=== PATIENT | male | born 1950 | race Caucasian/White ===

== ENCOUNTER 2021-04-07 07:40 | Emergency (ER) | payer OTHER, SELFPAY ==
[2021-04-07 07:45] VITALS: BP 136/80; PULSE 96; RESP 18; TEMP 36.8; O2SAT 96
[2021-04-07 08:01] LABS: Bilirubin Negative (Negative); Blood Trace-intact (Negative); Clarity Clear (Clear); Glucose Negative (Negative); Ketones Negative (Negative); Leukocyte Esterase Negative (Negative); Nitrite Negative (Negative); Specific Gravity 1.025 (1.005-1.025); Urobilinogen 0.2 EU/dL (Up TO 0.2); pH 5.5 (5-8)
[2021-04-07 08:14] LABS: Bacteria Rare HPF (Negative); Crystals Negative HPF (Negative); Epithelial Cells Rare HPF (Negative); Mucus Trace (Negative); RBC 0-2 HPF (0-2)
[2021-04-07 08:15] LABS: C & S Indicated? No
--- NOTE | 2021-04-07 08:30 | DI.CT_ITS ---
Exam(s) CT RENAL COLIC WO EXAM: CT RENAL COLIC WO CLINICAL HISTORY: left flank pain 3 days. TECHNIQUE: Imaging Protocol: Axial computed tomography images with coronal and sagittal reformatted images were created and reviewed. COMPARISON: No exams were available for comparison FINDINGS: The examination is limited due to patient motion artifact. ABDOMEN: Lung Bases: Normal where visualized. Liver: Normal density. No measurable mass. Gallbladder and biliary tract: No radiodense calculus or biliary ductal dilation. Pancreas: Normal density, no abnormal calcifications or inflammatory process. Spleen: Normal. Kidneys: Normal size, contour and axis.There is a 5 mm stone in the proximal left ureter causing mild hydronephrosis. There is a 0.9 cm hypodense exophytic lesion in the midpole of the right kidney lat erally. It does not contain fat. Density is -3 Hounsfield units. No follow-up is recommended. Adrenal glands: No mass is seen. Lymph nodes: Within normal limits. Abdominal Aorta: Abdominal portion non-dilated. Moderate atherosclerosis. PELVIS: Bladder:Symmetric distention, no gross wall thickening. Bowel: No obstruction or bowel wall thickening. No evidence of appendicitis. There is a small duoden al diverticulum adjacent to the head of the pancreas. There is diverticulosis in the proximal sigmoi d colon and descending colon, but no evidence of acute diverticulitis. Peritoneal cavity: No ascites, collection or mesenteric inflammatory response. No free air. Reproductive organs: There is an enlarged prostate gland. Bones: Degenerative changes are seen in the spine. Soft Tissues: Within normal limits. IMPRESSION: 5 mm proximal left ureteral stone causing mild hydronephrosis. Results of this exam have been verbally communicated with provider. RADIATION DOSE DELIVERED: 705.57mGy.cm Total DLP DATA REPOSITORY: All CT scans at this facility are submitted to the National Radiology Data Registry (NRDR) Dose Index Registry (DIR) with the [employer] (ACR). RADIATION OPTIMIZATION: All CT scans at this facility use at least one of these dose optimization te chniques: automated exposure control; mA and/or kV adjustment per patient size (includes targeted exa ms where dose is matched to clinical indication); or iterative reconstruction.
--- NOTE | 2021-04-07 08:32 | W.ED.GENAD ---
Discharge Plan Disposition Patient Disposition: HOME Condition: Stable Discharge Details Clinical Impression: Ureterolithiasis Primary Care Provider: [facility] ED Provider: Amol Rodriges Home Meds and New Rx's Prescriptions: New tamsulosin [Flomax] 0.4 mg capsule 0.4 mg PO DAILY Qty: 14 RF: 0 No Action acetaminophen 500 mg Tablet 500 mg PO Q4H RF: 0 budesonide-formoterol [Symbicort] 80-4.5 mcg/actuation Hfa Aerosol Inhaler 2 puff INHALATION BID RF: 0 ipratropium-albuterol 20-100 mcg/actuation Mist 1 puff INHALATION TID RF: 0 Discharge Instructions Instructions: Renal Colic (ED), How to Strain Your Urine (ED) Additional Instructions: Please take ibuprofen over the counter. Take 600mg by mouth every 6 hours as needed for pain. Please take acetaminophen (tylenol) - 650mg every 6 hours by mouth as needed for pain. Please take Flomax as prescribed Please follow-up with [facility] urology, Dr. Sorensen. You will be contacted for outpatient appointment. Return to the ER for any worsening or new concerning symptoms. Referrals: Albert Sorensen MD [ [facility] STAFF PHYSICIAN] - Discharge Data Discharge Date/Time-TO BE ENTERED AT DEPARTURE: 04/07/21 10:45 Medical Decision Making 70yo m with left flank pain. Exam benign. Labs reviewed. CT renal interpreted by radiology: IMPRESSION: 5 mm proximal left ureteral stone causing mild hydronephrosis. Results of this exam have been verbally communicated with provider. I spoke with Dr. Sorensen and discussed presentation and results. He recommends start flomax and f/u with him in clinic. All results reviewed with patient. Discharge plan discussed with patient. HPI General Mode of arrival: ambulatory. Date/Time Provider Initiated Documentation: 04/07/21 08:17. Limitations to Documentation: no limitations. Information obtained by: patient. HPI Narrative: 30-year-old male presents with chief complaint of left flank pain. Patient notes 3 to 4 days of left flank pain now radiating to his groin. Pain is moderate to severe with no modifiers. Pain is intermittently sharp. No associated hematuria or dysuria. No associated fever. Related Data Home Medications Medication Instructions Recorded Confirmed tamsulosin [Flomax] 0.4 mg PO DAILY #14 cap 04/07/21 04/09/21 acetaminophen 500 mg PO Q4H 04/09/21 04/09/21 budesonide-formoterol [Symbicort] 2 puff INHALATION BID 04/09/21 04/09/21 ipratropium-albuterol 1 puff INHALATION TID 04/09/21 04/09/21 Previous Rx's Medication Instructions Recorded tamsulosin [Flomax] 0.4 mg PO DAILY #14 cap 04/07/21 Allergies Allergy/AdvReac Type Severity Reaction Status Date / Time No Known Allergies Allergy Unverified 04/09/21 08:13 General Stated Complaint: FlankPain LUCY: 3 Review of Systems All systems reviewed & are unremarkable except as noted in HPI and below Constitutional Constitutional: Denies fever(s) Genitourinary Genitourinary: Denies hematuria, Denies genital pain, Denies penile discharge, Denies scrotal swelling and Denies testicular pain PFSH Medical History (Updated 04/09/21 @ 11:05 by James Keating) AAA (abdominal aortic aneurysm) without rupture COPD (chronic obstructive pulmonary disease) Knee pain Thrombus [facility]: Possible thrombus Surgical History (Updated 04/08/21 @ 14:51 by Albert Sorensen MD) H/O cataract extraction Social History Smoking/Tobacco Use Status: Current every day Tobacco Type: cigarettes Smoking risk assessment performed?: Yes Alcohol Intake: never Drug use: Never Substance use type: does not use Do you feel safe at home: Yes Do you feel safe in your relationship?: Yes Exam Const General: cooperative and no acute distress HENMT Mouth: moist mucous membranes Eyes Conjunctivae: normal conjunctivae Sclera: normal sclerae Neck Neck: trachea midline and supple Resp Auscultation: clear to auscultation bilaterally, no rales, no rhonchi and no wheezes Cardio Rate: regular rate and not tachycardic Rhythm: regular rhythm GI Palpation: soft, not firm, no guarding, no masses, not rigid and nontender Back/Spine/Pelvis Back: CVA tenderness (left) Skin General skin exam: no rashes or lesions noted Neuro General: patient alert, patient awake, patient oriented x3 and tone normal Extrem General: no edema Psych Appearance: grossly normal Mental Status: mental status grossly normal Course Vital Signs Vital signs: Vital Signs Temperature 36.8 C 04/07/21 07:45 Pulse 96 H 04/07/21 07:45 Respiratory Rate 18 04/07/21 07:45 Blood Pressure 136/80 04/07/21 07:45 Pulse Oximetry 96 04/07/21 07:45 Temperature 36.8 C 04/07/21 07:45 Temperature Source Temporal Artery Scan 04/07/21 07:45 Pulse 96 H 04/07/21 07:45 Respiratory Rate 18 04/07/21 07:45 Respiratory Effort Non-Labored 04/07/21 07:50 Blood Pressure 136/80 04/07/21 07:45 Blood Pressure Position Sitting 04/07/21 07:45 Pulse Oximetry 96 04/07/21 07:45 Oxygen Delivery Method Room Air 04/07/21 07:45 Oxygen Flow Rate 0 04/07/21 07:45 Pain Level 8 04/07/21 07:45 Lab/Test Results Lab/Test Results: Laboratory Tests Range/Units 04/07/21 07:55 Urine Color (Yellow) Yellow Urine Clarity (Clear) Clear Urine pH (5-8) 5.5 Ur Specific [place] (1.005-1.025) 1.025 Urine Protein (Negative) mg/dL 100 H Urine Ketones (Negative) mg/dL Negative Urine Blood (Negative) Trace-intact H Urine Nitrite (Negative) Negative Urine Bilirubin (Negative) Negative Urine Urobilinogen (Up TO 0.2) EU/dL 0.2 Ur Leukocyte Esterase (Negative) Negative Urine RBC (0-2) HPF 0-2 Urine WBC (0-5) HPF 3-5 Ur Epithelial Cells (Negative) HPF Rare Urine Crystals (Negative) HPF Negative Urine Bacteria (Negative) HPF Rare Urine Casts (Negative) LPF Negative Urine Mucus (Negative) Trace Ur Culture Indicated? No Urine Glucose (Negative) mg/dL Negative
[2021-04-07] MEDS: Ketorolac 15 MG/ML VIAL IVP (08:40)
[2021-04-07] MEDS: Lidocaine 5% Patch 1 PATCH TP (08:40)
[2021-04-07 08:45] LABS: Abs Immature Grans 0.09 10^3/uL (0.0-0.06); Absolute Basophil Count 0.03 10^3/uL (0.0-0.2); Absolute Monocyte Count 1.11 10^3/uL (0.1-0.8); Basophils % 0.2; Eosinophils % 0.1; HCT 53.6 % (40.0-50.0); HGB 17.8 g/dL (13.5-17.5); Immature Grans % 0.6; Lymphocytes % 10.6; MCH 28.9 pg (27.0-33.0); MCHC 33.2 % (32.0-36.0); MPV 9.7 fL (8.0-11.0); Monocytes % 7.5; Nucleated RBC 0 %; Platelet Count 239 10^3/uL (130-400); RBC 6.16 10^6/uL (4.36-5.78); RDW 13.7 % (11.8-14.1); WBC 14.84 10^3/uL (4.4-10.8)
[2021-04-07 08:54] LABS: ALT 24 U/L (16-63); AST 14 U/L (15-37); Albumin 3.9 g/dL (3.4-5.0); Alkaline Phosphatase 96 U/L (46-116); BUN 36 mg/dL (7-18); Bilirubin, Total 0.8 mg/dL (0.2-1.0); CREATININE 1.9 mg/dL (0.70-1.30); Calcium 9.1 mg/dL (8.5-10.1); Chloride 99 mmol/L (98-107); Estimated GFR 35.12 (mL/min/1.73m2); Glucose 115 mg/dL (74-106); Potassium 3.9 mmol/L (3.5-5.1); Sodium 140 mmol/L (136-145); Total Protein 8.5 g/dL (6.4-8.2)
--- OUTSIDE RECORDS SUMMARY | 2021-04-07 09:01 | XMS_ITS | Encounter Summary ---
:1950 Author Organization [facility] Address [address] [place] [address] Care Team Providers Name Role Phone JHONNY VIVAS Primary Care Provider Unavailable Insurance Providers: All historical and current Section Date Range: From patient's date of to the date document was created.This section includes the names of all active insurance providers for the patient. Insurance Type of Plan Start of End of Group Member Insurance Policy P atient's Provider Coverage Name Policy Policy Number ID Provider's Carcamo's Relationship Coverage Coverage Telephone Name to Policy Number Carcamo MEDICARE MEDICARE PART Nov 01, PART A [id number] DIA LAWS PATIENT (WNR) (M) A 2013 37A 1 [place] MEDICARE MEDICARE PART Nov 01, PART B [id number] DIA LAWS PATIENT (WNR) (M) B 2013 37A 1 [place] Selected Encounter This section includes the information on record at [place] for the Encounter. Date/Time Encounter Type Encounter Reason Provider Source Description Dec 23, 2020 3D RENDER W/INTRP CARDIAC ECHO ICD-10-CM JUANJO VARELA 08:30 AM POSTPROCES I71.2 Thoracic aortic aneurysm, without rupture with Provider Comments: Thoracic aortic aneurysm, without rupture IHE Encounter Template Text not used by [facility] Assessments - Encounter Diagnoses This section includes the primary and secondary diagnoses documented forthe Encounter. Date/Time Primary/Secondary Diagnosis Name Provider Source Diagnosis Dec 23, 2020 PRIMARY Thoracic aortic [facility] 09:14 AM aneurysm, [facility] without rupture Surgical Procedures: All associated to the encounter This section includes all Surgical Procedures and Surgical Procedure Notes associated to the Encounter.Surgical Procedures This section includes all Surgical Procedures associated to the Encounter.Surgical Procedure Date/Time Procedure Procedure Type Procedure Provider Source Qualifiers Dec 23, 2020 3D RENDER 3D RENDER JUANJO VARELA 08:30 AM W/INTRP W/INTRP L [facility] POSTPROCES POSTPROCES Surgical Notes There are no notes associated with this procedure. Surgical Procedure Date/Time Procedure Procedure Type Procedure Provider Source Qualifiers Dec 23, 2020 TTE W/DOPPLER TTE W/DOPPLER JUANJO VARELA 08:30 AM COMPLETE COMPLETE L [facility] Surgical Notes There are no notes associated with this procedure. Social History: Smoking Status (Most current) and Tobacco Use (All prior to encounter date) This section includes the most current, and the historical, smoking and tobacco-related health factors from the [place] facility where the Encounter took place.Current Smoking Status This section includes the most current smoking, or tobacco-related health factor, from the [place] facility where the Encounter took place. 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 The data comes from the [place] facility where the Encounter took place. 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 Date/Time Encounter Note(s) Provider Source Dec 23, 2020 11:10 AM CARDIOLOGY DIAGNOSTIC STUDY REPORT: DENEEN BHATT [facility] LOCAL TITLE: Cardiology Echo Report (CP) STANDARD TITLE: CARDIOLOGY DIAGNOSTIC STUDY REPO RT DATE OF NOTE: DEC 23, 2020@11:10:45 ENTRY DATE: DEC 23, 2020@11:10:45 AUTHOR: CLINICAL,DEVICE PRO EXP COSIGNER: URGENCY: STATUS: COMPLETED PROCEDURE SUMMARY CODE: Machine Resulted DATE/TIME PERFORMED: DEC 23, 2020@08:27:5 DOCUMENT IN VISTA IMAGING SEE FULL REPORT IN VISTA IMAGING SIGNATURE NOT REQUIRED SEE SIGNATURE IN VISTA IMAGING ([employer]era (TTE)) AUTO-INSTRUMENT DIAGNOSIS Procedure: Adult Administrative Closure: 12/23/2020 by: Clinical,Device Proxy Se garcia
--- OUTSIDE RECORDS SUMMARY | 2021-04-07 09:02 | XMS_ITS ---
:1950 Author Organization [facility] Address [address] [place] [address] Care Team Providers Name Role Phone JHONNY [...] MEDICARE MEDICARE PART Nov 01, PART A [id number] [id number] DIA LAWS PATIENT (WNR) (M) A 2013 37A 1 [place] MEDICARE MEDICARE PART Nov 01, PART B [id number] [phone] DIA LAWS PATIENT (WNR) (M) B 2013 37A 1 [place] Selected Encounter This section includes the information on record at [place] for the Encounter. Date/Time Encounter Type Encounter Reason Provider Source Description May 13, 2020 Outpatient TELEPHONE/SURGERY ICD-10-CM Z71.89 JENNIFER GR 09:00 AM Encounter Other specified IS L counseling with Provider Comments: Counseling,Oth Specified IHE Encounter Template Text not used by [facility] Assessments - Encounter Diagnoses This section includes the primary and secondary diagnoses documented forthe Encounter. Date/Time Primary/Secondary Diagnosis Name Provider Source Diagnosis May 13, 2020 PRIMARY Other specified BILL ANDRADE DENEEN QUINONES R 09:00 AM counseling [facility] May 13, 2020 SECONDARY Other general BILL ANDRADE [place] 09:00 AM symptoms and [facility] signs Plan of Treatment: Future Appointments (+ 6 months) and Future Tests (+/- 45 days) The Plan of Treatment section includes future care activities for the patient from all [place] treatment facilities. This section includes future appointments and future orders which are active, pending or scheduled.Future Appointments This section includes appointments that were scheduled to occur 6 months from the date of the Encounter, up to a maximum of 20 appointments. The data comes from all [facility]. Appointment Date/Time Appointment Type Appointment Facili ty Name Sep 24, 2020 08:30 AM AMBULATORY - MEDICINE [facility] Active, Pending, and Scheduled Orders This section includes a listing of several types of active, pending, and scheduled orders, including clinic medications orders, diagnostic test orders, procedure orders and consult orders; where the start date of the order is 45 days before the date of the Encounter or 45 days after the date of the Encounter. The data comes from all [place] treatment facilities. Test Date/Time Test Type Test Details Facility Name May 01, 2020 12:00 Laboratory - P4 GLU,BUN,CREAT,LYTES,CA WHI TE [place] T AM Chemistry Order LT GREEN(LI HEP) PLASMA [facility] May 01, 2020 12:00 Laboratory - GLYCOHEMOGLOBIN (A1C ONLY) [facility] Order BLOOD(LAV-EDTA) [facility] May 01, 2020 12:00 Laboratory - FOLATE BLOOD(GOLD) [place] [place] AM Chemistry Order [facility] May 01, 2020 12:00 Laboratory - [facility] B[facility] SER[facility] May 01, 2020 12:00 [facility] - [facility] Chemistry Order BLOOD(GOLD) SERUM [facility] May 13, 2020 09:09 Procedure Order VASCULAR LAB PROCEDURE [facility] VASCULAR LAB FUTURE CARE [facility] Proc [place] Social History: Smoking Status (Most current) and Tobacco Use (All prior to encounter date) This section includes the most current, and the historical, smoking and tobacco-related health factors from the [place] facility where the Encounter took place.Current Smoking Status This section includes the most current smoking, or tobacco-related health factor, from the [place] facility where the Encounter took place. 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 The data comes from the [place] facility where the Encounter took place. Date/Time Smoking Status/Tobacco Use Comment Facil ity Jan 25, 2020 12:41 PM VA-TOBACCO USE 30 YEARS OR MORE DENEEN BHATT [place] [facility] Jan 25, 2020 12:41 PM VA-TOBACCO USE ADVICE ALHAJI BHATT [place] [facility] Jan 25, 2020 12:41 PM VA-TOBACCO USE ENVIRONMENTAL SYSTEMS COORDINATOR NO WHITE [place] [facility] Jan 25, 2020 12:41 PM VA-TOBACCO USE MED NO ALHAJI [place] [facility] Jan 25, 2020 12:41 PM VA-TOBACCO USER EVERY DAY DENEEN BHATT [place] [facility] Sep 08, 2016 08:09 AM CURRENT SMOKER DENEEN De Luna [facility] Encounter Notes: All associated encounter notes This section contains the clinical notes associated to the Encounter. Date/Time Encounter Note(s) Provider Source May 13, 2020 08:31 AM VASCULAR SURGERY TELEPHONE ENCOUNTER N OTE: DOLORES GR DENEEN BHATT T LOCAL TITLE: Vasc Surgery/Telephone Note [facility] STANDARD TITLE: VASCULAR SURGERY TELEPHONE ENCOU NTER NOTE DATE OF NOTE: MAY 13, 2020@08:31 ENTRY DATE: MAY 13, 2020@08:31:29 AUTHOR: DOLORES GR EXP COSIGNER: CHYNA MEDRANO URGENCY: STATUS: COMPLETED Vasc Surgery/Telephone Note Has ADDENDA * VASCULAR SURGERY TELEPHONE NOTE 69 y/o male w/PMHx including severe COPD, HLD, t obacco use who presented for routine Vascular Surgery F/U with updated studie s. Contacted patient to F/U konrad dies and discuss further management. He denies acute abdominal/back pain/LE pain. Sore feet sometimes , continues working and is on them during the day. Remains on ASA and statin. Denies additional blood thinners. Restarted smoking, 1/2-1ppd. Rare ETOH use. Denies illicit acute. STUDIES: Procedure: Arterial Duplex Exam Registered Alarm Operator: BRENDA MAY Ordering Provider: BRENDA KAPLAN Indication for exam: annual surviellance Duplex Findings: Location: Diameter(cm) Diameter( cm) AP Transver se Proximal Aorta: 2.2 2.2 Mid Aorta: 2.7 2.7 Distal Aorta: 2.2 2.2 Right SONIA: 1.2 1.2 Left SONIA: 2.1 2.0 Summary: Ectatic aorta with maximum diameter of 2.7 cm. ( compared to 3.4 cm on the previous study on 05-11-19). Ectatic left common iliac artery, no previous measurement from our vascular lab for comparison . A/P: 69 y/o male w/ectatic AAA an d LEFT SONIA. Recommend ongoing surveillance w/updated aortic duplex and RTC 1 year. Continue medical t herapy w/ASA and statin. Recommend smoking cessation and patient to present to the closest ED for acute clinical change. /christian/ DOLORES GR Physician Hired Hand Signed: 05/13/2020 09:07 /christian/ CHYNA Smith MD Cosigned: 05/13/2020 10:24 05/13/2020 ADDENDUM STATUS: COMPLETED Correction: 69 y/o male w/ectatic abdominal aorta and LEFT C IA. /[place] GR Physician Hired Hand Signed: 05/13/2020 09:10 /christian/ CHYNA Smith MD Cosigned: 05/13/2020 10:23
--- OUTSIDE RECORDS SUMMARY | 2021-04-07 09:02 | XMS_ITS | Encounter Summary ---
:1950 Author Organization [facility] Address [address] [place] [address] Care Team Providers Name Role Phone JHONNY [...] MEDICARE MEDICARE PART Nov 01, PART A [id number] [phone] DIA LAWS PATIENT (WNR) (M) A 2013 37A 1 [place] MEDICARE MEDICARE PART Nov 01, PART B [id number] DIA LAWS PATIENT (WNR) (M) B 2013 37A 1 [place] Selected Encounter This section includes the information on record at [place] for the Encounter. Date/Time Encounter Type Encounter Description Reason Provider Source Jul 03, 2020 11:31 Outpatient Encounter CARDIAC ECHO AM IHE Encounter Template Text not used by [place] Plan of Treatment: Future Appointments (+ 6 months) and Future Tests (+/- 45 days) The Plan of Treatment section includes future care activities for the patient from all [place] treatment facilities. This section includes future appointments and future orders which are active, pending or scheduled.Future Appointments This section includes appointments that were scheduled to occur 6 months from the date of the Encounter, up to a maximum of 20 appointments. The [facility] [place] [facility] Appointment Date/Time Appointment Type Appointment Facili ty Name Sep 24, 2020 08:30 AM AMBULATORY - MEDICINE [facility] Dec 23, 2020 08:30 AM AMBULATORY - MEDICINE [facility] Social History: Smoking Status (Most current) and Tobacco Use (All prior to encounter date) This section includes the most current, and the historical, smoking and tobacco-related health factors from the [place] facility where the Encounter took place.Current Smoking Status This section includes the most current smoking, or tobacco-related health factor, from the [place] facility where the Encounter took place. 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 The data comes from the [place] facility where the Encounter took place. Date/Time Smoking Status/Tobacco Use Comment [facility] Jan 25, 2020 12:41 PM VA-TOBACCO USE 30 YEARS OR MORE DENEEN BHATT [facility] Jan 25, 2020 12:41 PM VA-TOBACCO USE ADVICE ALHAJI BHATT [facility] Jan 25, 2020 12:41 PM VA-TOBACCO USE GARMENT STEAMER NO DENEEN BHATT [facility] Jan 25, 2020 12:41 PM VA-TOBACCO USE MED NO ALHAJI BHATT [facility] Jan 25, 2020 12:41 PM VA-TOBACCO USER EVERY DAY DENEEN BHATT [facility] Sep 08, 2016 08:09 AM CURRENT SMOKER DENEEN De Luna [facility] Encounter Notes: All associated encounter notes This section contains the clinical notes associated to the Encounter. Date/Time Encounter Note(s) Provider Source Jul 03, 2020 11:31 AM INFECTIOUS DISEASE NOTE: SALVATORE MCCLOUD [facility] LOCAL TITLE: COVID-19 CANCELLED APPOINTMENT FOL LOW-UP STANDARD TITLE: INFECTIOUS DISEASE NOTE DATE OF NOTE: JUL 03, 2020@11:31 ENTRY DATE: JUL 03, 2020@11:31:10 AUTHOR: SALVATORE MCCLOUD EXP COSIGNER: URGENCY: STATUS: COMPLETED Review of cancelled appointments during COVID-19 pandemic: CVP - Past Clinic Visits 05/24/2020 09:30 [facility] CARDIO ECHO B1RC CANCELLED BY PATIENT 05/24/2020 08:30 [facility] EYE VICTORIA B3RF CANCELLED BY PATIENT 05/14/2020 09:48 [facility] EYE TELEPHONE UNSCHEDULED 05/13/2020 09:00 [facility] VASCULAR TELE-X 05/09/2020 09:15 [facility] VASCULAR TELE-X CANCELLED BY CLINIC 05/09/2020 08:00 [facility] VASCULAR LAB 60 M3RH 04/01/2020 08:30 [facility] CARDIO ECHO B1RC CANCELLED BY CLINIC 03/29/2020 15:27 [facility] CARDIO RN PHONE UNSCHEDULED 02/06/2020 08:46 [facility] PACT ACAD 1 TELE 02/06/2020 08:45 [facility] PACT ACAD 1 M1RB CANCELLED BY CLINIC Date(s) of appointment(s) being reviewed: 11/2019 08:30 Clinic Location/Specialty: [facility] CARDIO ECHO B1R C The 's chart has been reviewed and the ac tion below is indicated for this cancelled appointment: Follow-up: Scheduling action needed /christian/ SALVATORE MCCLOUD Signed: 07/03/2020 11:31
--- OUTSIDE RECORDS SUMMARY | 2021-04-07 09:02 | XMS_ITS | Encounter Summary ---
:1950 Author Organization [facility] Address [address] [place] [address] Care Team Providers Name Role Phone JHONNY [...] MEDICARE MEDICARE PART Nov 01, PART A [id number] [phone] DIA LAWS PATIENT (WNR) (M) A 2013 37A 1 ORGE MEDICARE MEDICARE PART Nov 01, PART B [id number] DIA LAWS PATIENT (WNR) (M) B 2013 37A 1 ORGE Selected Encounter This section includes the information on record at [place] for the Encounter. Date/Time Encounter Type Encounter Reason Provider Source Description May 14, 2020 Outpatient TELEPHONE/OPTOMET ICD-10-CM Z71.89 SHARI VICTORIA 09:48 AM Encounter RY Other specified counseling with Provider Comments: Counseling,Oth Specified IHE Encounter Template Text not used by [facility] Assessments - Encounter Diagnoses This section includes the primary and secondary diagnoses documented forthe Encounter. Date/Time Primary/Secondary Diagnosis Name Provider Source Diagnosis May 14, 2020 PRIMARY Other specified EKATERINA YOUNGER ER 09:48 AM counseling [facility] Plan of Treatment: Future Appointments (+ 6 months) and Future Tests (+/- 45 days) The Plan of Treatment section includes future care activities for the patient from all [place] treatment facilities. This section includes future appointments and future orders which are active, pending or scheduled.Future Appointments This section includes appointments that were scheduled to occur 6 months from the date of the Encounter, up to a maximum of 20 appointments. The data comes from all [facility]. Appointment Date/Time Appointment Type Appointment Facili ty Name Sep 24, 2020 08:30 AM AMBULATORY - MEDICINE [facility] Active, Pending, and Scheduled Orders This section includes a listing of several types of active, pending, and scheduled orders, including clinic medications orders, diagnostic test orders, procedure orders and consult orders; where the start date of the order is 45 days before the date of the Encounter or 45 days after the date of the Encounter. The data comes from all [place] treatment facilities. Test Date/Time Test Type Test Details Facility Name May 01, 2020 12:00 Laboratory - P4 GLU,BUN,CREAT,LYTES,CA I TE [facility] T AM Chemistry Order LT GREEN(LI HEP) [facility] May 01, 2020 12:00 Laboratory - [facility]COHE[facility] (A1C ONLY[facility] AM Chemistry Order BLOOD(LAV-EDTA) [facility] May 01, 2020 12:00 Laboratory - FOLATE BLOOD(GOLD) [facility] Chemistry Order SP [facility] May 01, 2020 12:00 Laboratory - VITAMIN B-12 BLOOD(GOLD) [facility] AM Chemistry Order SERUM [facility] May 01, 2020 12:00 Laboratory - THYROID TESTING [facility] Chemistry Order BLOOD(GOLD) [facility] May 13, 2020 09:09 Procedure Order VASCULAR LAB PROCEDURE [facility] VASCULAR LAB FUTURE CARE [facility] Proc Corporate Administrative Assistant's Choice Social History: Smoking Status (Most current) and Tobacco Use (All prior to encounter date) This section includes the most current, and the historical, smoking and tobacco-related health factors from the [place] facility where the Encounter took place.Current Smoking Status This section includes the most current smoking, or tobacco-related health factor, from the [place] facility where the Encounter took place. 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 The data comes from the [place] facility where the Encounter took place. 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 Date/Time Encounter Note(s) Provider Source May 14, 2020 09:48 AM EYE TELEPHONE ENCOUNTER NOTE: ANTHONY VICTORIA [facility] LOCAL TITLE: Eye Clinic Telephone Note [facility] STANDARD TITLE: EYE TELEPHONE ENCOUNTER NOTE DATE OF NOTE: MAY 14, 2020@09:48 ENTRY DATE: MAY 14, 2020@09:48:56 AUTHOR: EKATERINA YOUNGER COSIGNER: DEISY VICTORIA URGENCY: STATUS: COMPLETED EYE TELEPHONE NOTE PURPOSE FOR THE CALL COVID-19 RELATED CONTACT EFFORT Spoke to patient's . REVIEW OF RECORD Record reviewed , Patient Appointment: EYE APPT FUTURE TODAY'S & FUTURE EYE CLINIC APPOINTMENTS DATE/TIME CLINIC ( LOCATION ) May@08:30 [facility] EYE ESME B3RF (BI RCHES BLG FL 3 REC F) PERTINENT/OCULAR HISTORY 1. Cataracts OU 2. Refractive error 3. Mild retinal angiopathy OS 4. Epiretinal membrane OD CALLED PATIENT TO RESCHEDULE 2' COVID-19 PANDEMI C. NO ANSWER LEFT DISCRETE MESSAGE @ 10:00am ON 05/14 WITH DIRECT CONTACT IN FORMATION. WILL CALL AGAIN. CALLED PATIENT TO RESCHEDULE 2' COVID-19 PANDEMI C. NO ANSWER LEFT DISCRETE MESSAGE @ 10:20am ON 05/15 WITH DIRECT CONTACT IN FORMATION. WILL CALL AGAIN. On 05/16 at 9:04: COVID Screening: Negative Spoke to 's . Per his he denies any urgent eye problems. Will cancel eye exam on May 24 and reschedule. PATIENT EDUCATED TO CONTACT CLINIC WITH ANY URGE NT EYE/VISION ISSUES. APPOINTMENT CHANGE Appointment to be can celled and RTC order placed for 1 year Will inform administrative staff to reschedule. Rescheduled appointment due to: COVID Total time spent on telephone call was 5 minutes . /christian/ DEISY VICTORIA Chief, Optometry Signed: 05/16/2020 22:23 for EKATERINA YOUNGER, Optometry Student Optometry Student /christian/ DEISY VICTORIA Chief, Optometry Cosigned: 05/16/2020 22:23
[2021-04-07 09:19] LABS: Absolute Eosinophil Count 0.01 10^3/uL (0.0-0.7); Absolute Lymphocyte Count 1.57 10^3/uL (1.2-3.4); Absolute Neutrophil Count 12.02 10^3/uL (1.2-6.7)
[2021-04-07 09:20] LABS: Diff Comment Diff Reviewed; RBC Morphology Normal
[2021-04-07] MEDS: Tamsulosin 0.4 MG CAPCR PO (10:38)
[2021-04-07 14:13] LABS: Casts 5-10 Hyaline LPF (Negative)
[2021-04-08 16:02] LABS: COVID-19 RT-PCR UVMMC Result Negative (Negative)
--- NOTE | 2021-04-11 08:52 | NUR.NOTE ---
telephoned patient, verified identity and relayed negative covid results to him.
== END 2021-04-07 10:45 | disposition home or self-care (01) ==
PROVIDERS: Emergency Provider Student in an Organized Health Care Education/Training Program
DX: N20.1 Calculus of ureter (principal); Z20.822 Contact with and (suspected) exposure to COVID-19
CPT/HCPCS: 80053; 99284; U0003; 74176; 81003; 81015; 85025; 99283; J1885

== ENCOUNTER 2021-04-11 04:08 | Day surgery (SDC) | payer OTHER, SELFPAY | END 2021-04-11 04:09 | disposition home or self-care (01) | LOC: SUR 04-13 04:09 | PROVIDERS: Visit Provider Urology | DX: Z53.9 Procedure and treatment not carried out, unspecified reason (principal) ==

== ENCOUNTER 2021-11-13 12:25 | Emergency (ER) | payer OTHER, SELFPAY ==
[2021-11-13] VITALS (15 sets, daily range): BP systolic 118–173; BP diastolic 70–106; PULSE 75–137; RESP 15–23; TEMP 36.4; O2SAT 93–97
--- NOTE | 2021-11-13 12:30 | DI.CT_ITS ---
Exam(s) CT BRAIN NECK CTA EXAM: CT BRAIN NECK CTA CLINICAL HISTORY: stroke, right sided deficits. TECHNIQUE: Imaging Protocol: Axial CT angiography was performed with multi-slice acquisition and mu lti-planar and/or 3D reconstructions. CONTRAST MATERIAL: Intravenous: Omnipaque 350 Contrast volume:100 ml COMPARISON: CT CT RENAL COLIC WO from 04/07/2021 FINDINGS: CT Head W/O and W contrast: Ventricles and Extra axial spaces: Normal in size and morphology for the patient's age. Hemorrhage: None. Cerebral parenchyma: Mild to moderate low density in the white matter consistent with small vessel di sease. Mild atrophy. Midline shift: None. Brainstem/Cerebellum: Normal. Calvarium: Normal. Visualized Paranasal sinuses/Mastoids: Clear. Soft Tissues: Unremarkable. Enhancement: Normal. CTA Brain W: Internal Carotid Arteries: Petrous: Normal. Cavernous: Normal. Cerebral: Normal. Middle Cerebral Arteries: Right: No aneurysm, occlusion or significant stenosis. Left: No aneurysm, occlusion or significant stenosis. Anterior Cerebral Arteries: Right: No aneurysm, occlusion or significant stenosis. Left: No aneurysm, occlusion or significant stenosis. Posterior cerebral Arteries: Right: No aneurysm, occlusion or significant stenosis. Left: No aneurysm, occlusion or significant stenosis. Vertebral Arteries: Right: No aneurysm, occlusion or significant stenosis. Left: No aneurysm, occlusion or significant stenosis. Basilar Artery: No aneurysm, occlusion or significant stenosis. CTA Neck W: Common Carotid: Right: No aneurysm, occlusion or significant stenosis. Left: No aneurysm, occlusion or significant stenosis. External Carotid: Right: No aneurysm, occlusion or significant stenosis. Left: No aneurysm, occlusion or significant stenosis. Internal Carotid: Right: Heavy plaque at the common carotid bulb and proximal internal carotid artery. Mild stenosis o f left and 50 percent proximal internal carotid artery. Left: Calcific plaque at the proximal internal carotid artery creating approximately 50 percent sten osis. Vertebral Artery: Right: No aneurysm, occlusion or significant stenosis. Left: No aneurysm, occlusion or significant stenosis. Lung Apices: Emphysematous changes. No pneumothorax or infiltrate. Bones: Degenerative changes, unremarkable for age. Soft Tissues: Normal. IMPRESSION: 1. Normal CTA examination of the [place]. 2. No acute infarct visible. White matter changes small vessel disease. 3. Heavy calcific plaque at the common carotid bulbs and proximal internal carotid arteries, mild estrella nosis on the right and moderate stenosis on the left. 4. No evidence occlusion or dissection. RADIATION DOSE DELIVERED: 2,193.44mGy.cm Total DLP DATA REPOSITORY: All CT scans at this facility are submitted to the National Radiology Data Registry (NRDR) Dose Index Registry (DIR) with the [employer] (ACR). RADIATION OPTIMIZATION: All CT scans at this facility use at least one of these dose optimization te chniques: automated exposure control; mA and/or kV adjustment per patient size (includes targeted exa ms where dose is matched to clinical indication); or iterative reconstruction.
--- NOTE | 2021-11-13 12:45 | RT.EKG_ITS ---
APPROVED REPORT Exam: Resting ECG Reason for Exam: possible stroke Patient Location: E HR:82 bpm ECG Measurements Heart Rate 82 AXIS MD 172 P 70 QRSd 97 QRS 63 QT 400 T 69 QTc 468 Conclusion Sinus rhythm...normal P axis, V-rate 60- 99 Ventricular premature complex...V complex w/ short R-R interval Physician:minimal st elevation in V1, no depression, no stemi
[2021-11-13 12:52] LABS: BE (Venous) 4 mmol/L (-2-3); HCO3 (Venous) 29 mmol/L (23-28); O2 Sat (Venous) 91 %; TCO2 (Venous) 25 mmol/L (24-29); pCO2 (Venous) 44 mmHg (41-51); pH (Venous) 7.43 (7.31-7.41); pO2 (Venous) 56 mmHg
[2021-11-13 12:53] LABS: Absolute Basophil Count 0.07 10^3/uL (0.0-0.2); Absolute Eosinophil Count 0.12 10^3/uL (0.0-0.7); Absolute Lymphocyte Count 2.79 10^3/uL (1.2-3.4); Absolute Monocyte Count 0.73 10^3/uL (0.1-0.8); Basophils % 0.8; Eosinophils % 1.4; HCT 47.5 % (40.0-50.0); HGB 15.6 g/dL (13.5-17.5); Immature Grans % 1.1; Lymphocytes % 31.7; MCH 28.9 pg (27.0-33.0); MCHC 32.8 % (32.0-36.0); MCV 88.1 fL (80-95); MPV 9.2 fL (8.0-11.0); Monocytes % 8.3; Neutrophils % 56.7; Nucleated RBC 0 %; Platelet Count 213 10^3/uL (130-400); RBC 5.39 10^6/uL (4.36-5.78); RDW 14.4 % (11.8-14.1); RDW-SD 46.2 fL; WBC 8.81 10^3/uL (4.4-10.8)
[2021-11-13] MEDS: Normal Saline 500 ML IV (12:56)
[2021-11-13 13:00] LABS: Ammonia 15 umol/L (11-32)
[2021-11-13] MEDS: Omnipaque 350 MG/ML 100 ML BTL 85 ML IJ (13:00)
[2021-11-13 13:18] LABS: ALT 34 U/L (16-63); AST 25 U/L (15-37); Alkaline Phosphatase 83 U/L (46-116); Anion Gap 8.8 mmol/L (3-11); BUN 20 mg/dL (7-18); Bilirubin, Total 0.5 mg/dL (0.2-1.0); CO2 28.2 mmol/L (21.0-32.0); CREATININE 0.8 mg/dL (0.70-1.30); Calcium 8.8 mg/dL (8.5-10.1); Chloride 102 mmol/L (98-107); Glucose 103 mg/dL (74-106); Potassium 3.6 mmol/L (3.5-5.1); Sodium 139 mmol/L (136-145); Total Protein 7.8 g/dL (6.4-8.2); Troponin I < 50 ng/L (<or=60)
--- NOTE | 2021-11-13 13:42 | W.ED.GENAD ---
Discharge Plan Disposition Patient Disposition: [facility] Condition: Critical Discharge Details Clinical Impression: Acute ischemic stroke, Right sided weakness Primary Care Provider: [facility],[place] ED Provider: Yaron Mohan Home Meds and New Rx's Prescriptions: No Action acetaminophen 500 mg Tablet 500 mg PO Q4H PRNRF: 0 budesonide-formoterol [Symbicort] 80-4.5 mcg/actuation Hfa Aerosol Inhaler 2 puff INHALATION BID RF: 0 ipratropium-albuterol 20-100 mcg/actuation Mist 1 puff INHALATION TID RF: 0 Discharge Data Discharge Date/Time-TO BE ENTERED AT DEPARTURE: 11/13/21 15:35 Medical Decision Making 12:30 71-year-old male with a past medical history of AAA, COPD, tobacco use, who presents today for strokelike symptoms. 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 He did not fall and hit his head. He states he was unable to use his right arm and right leg. Eventually family was contacted, they drove the patient to the ER. He denies any headache, neck pain, chest pain or shortness of breath. He denies any history of stroke. He admits to tingling in his right arm and right leg. He denies any visual changes. He does admit to some mild bladder incontinence. No other complaints at this time. No other modifying factors. Physical exam demonstrates NIH stroke score of around 7. Notable profound weakness of the right upper and lower extremity. Notable discoordination of these extremities. No other significant deficits of aside from mild diminished sensation in his right upper and lower extremity. Concern at this time is for notable stroke. We will get CT scan, laboratory work-up, monitor closely and reassess. 1:20 CT scan negative for evidence of stroke or thrombus or bleed. There is carotid disease at the carotid bulbs, but no focal area of severe stenosis. Repeat exam demonstrates an NIH stroke score of 6 at this time. Minimal improvement. Discussed risks and benefits of tPA, and after thorough discussion, the patient states that he would be in favor of tPA. We will reach out to [facility] for neurology consult and transfer. 1:30 PM Reached out to the [facility] at 1:30 PM. Reached out to [facility] just prior and they state they have no beds unless the patient is a thrombectomy candidate. 2:00 PM Discussed the case with neurology Dr. Riley, he agrees that the patient would be a thrombolytic candidate. tPA has been administered after discussing risks and benefits of both the patient and his significant other. Patient tolerated this well. [facility] accepts the patient for transfer. I have extensively reviewed the treatment plan with the patient. I have addressed all patient concerns at this time. I have also discussed the plan with the admitting physician and they agree with the current assessment and plan and have agreed to assume responsibility for the patient. All parties demonstrate verbal understanding and agreement with our assessment and plan at this time. The documentation in this chart was dictated using [employer] dictation software. Please excuse any dictation errors. At time of transfer the patient was reassessed and shows no signs of acute respiratory distress requiring intubation, hemodynamic instability requiring pressor support, or rapidly declining mental status. The patient is stable for transport. Repeat neurologic assessment shows an NIH stroke score of 5 with improving strength in the right upper extremity but no improvement in coordination. FINDINGS: CT Head W/O and W contrast: Ventricles and Extra axial spaces: Normal in size and morphology for the patient's age. Hemorrhage: None. Cerebral parenchyma: Mild to moderate low density in the white matter consistent with small vessel disease. Mild atrophy. Midline shift: None. Brainstem/Cerebellum: Normal. Calvarium: Normal. Visualized Paranasal sinuses/Mastoids: Clear. Soft Tissues: Unremarkable. Enhancement: Normal. CTA Brain W: Internal Carotid Arteries: Petrous: Normal. Cavernous: Normal. Cerebral: Normal. Middle Cerebral Arteries: Right: No aneurysm, occlusion or significant stenosis. Left: No aneurysm, occlusion or significant stenosis. Anterior Cerebral Arteries: Right: No aneurysm, occlusion or significant stenosis. Left: No aneurysm, occlusion or significant stenosis. Posterior cerebral Arteries: Right: No aneurysm, occlusion or significant stenosis. Left: No aneurysm, occlusion or significant stenosis. Vertebral Arteries: Right: No aneurysm, occlusion or significant stenosis. Left: No aneurysm, occlusion or significant stenosis. Basilar Artery: No aneurysm, occlusion or significant stenosis. CTA Neck W: Common Carotid: Right: No aneurysm, occlusion or significant stenosis. Left: No aneurysm, occlusion or significant stenosis. External Carotid: Right: No aneurysm, occlusion or significant stenosis. Left: No aneurysm, occlusion or significant stenosis. Internal Carotid: Right: Heavy plaque at the common carotid bulb and proximal internal carotid artery. Mild stenosis of left and 50 percent proximal internal carotid artery. Left: Calcific plaque at the proximal internal carotid artery creating approximately 50 percent stenosis. Vertebral Artery: Right: No aneurysm, occlusion or significant stenosis. Left: No aneurysm, occlusion or significant stenosis. Lung Apices: Emphysematous changes. No pneumothorax or infiltrate. Bones: Degenerative changes, unremarkable for age. Soft Tissues: Normal. IMPRESSION: 1. Normal CTA examination of the [place]. 2. No acute infarct visible. White matter changes small vessel disease. 3. Heavy calcific plaque at the common carotid bulbs and proximal internal carotid arteries, mild stenosis on the right and moderate stenosis on the left. 4. No evidence occlusion or dissection. HPI General Date/Time Provider Initiated Documentation: 11/13/21 12:28. HPI Narrative: 71-year-old male with a past medical history of AAA, COPD, tobacco use, who presents today for strokelike symptoms. 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 He did not fall and hit his head. He states he was unable to use his right arm and right leg. Eventually family was contacted, they drove the patient to the ER. He denies any headache, neck pain, chest pain or shortness of breath. He denies any history of stroke. He admits to tingling in his right arm and right leg. He denies any visual changes. He does admit to some mild bladder incontinence. No other complaints at this time. No other modifying factors. Related Data Home Medications Medication Instructions Recorded Confirmed acetaminophen 500 mg PO Q4H PRN 04/09/21 11/13/21 budesonide-formoterol [Symbicort] 2 puff INHALATION BID 04/09/21 11/13/21 ipratropium-albuterol 1 puff INHALATION TID 04/09/21 11/13/21 Allergies Allergy/AdvReac Type Severity Reaction Status Date / Time No Known Allergies Allergy Unverified 11/13/21 13:54 General Stated Complaint: CVA/TIA LUCY: 2 Review of Systems All systems reviewed & are unremarkable except as noted in HPI and below PFSH All Active Problems (Updated 11/13/21 @ 19:43 by Yaron Mohan DO) Acute ischemic stroke (Acute) Right sided weakness (Acute) Ureterolithiasis (Acute) Medical History AAA (abdominal aortic aneurysm) without rupture COPD (chronic obstructive pulmonary disease) Knee pain Thrombus Per [facility] note: Possible thrombus Surgical History H/O cataract extraction Social History Smoking/Tobacco Use Status: Current every day Tobacco Type: cigarettes Years smoked: 50 Smoking risk assessment performed?: Yes Alcohol Intake: never Drug use: Never Substance use type: does not use Do you feel safe at home: Yes Do you feel safe in your relationship?: Yes Exam Narrative Exam Narrative: 1.Const: Well-nourished, Well-developed, appearing stated age 2.Eyes: PERRL, no conjunctival injection, and symmetrical lids. 3.ENT: Atraumatic external nose and ears. Moist MM. Neck: Symmetric, trachea midline, No thyromegaly. No facial asymmetry 4.CVS: +S1/S2, No murmurs or gallops. Peripheral pulses 2+ and equal in all extremities. Brisk capillary refill in all extremities. 5.RESP: Unlabored respiratory effort. Clear to auscultation bilaterally. No wheezes rales or rhonchi 6.GI: Soft, Nontender/Nondistended, No hepatosplenomegaly. No guarding or rebound. 7.MSK: Normocephalic/Atraumatic, Extremities w/o deformity or ttp No cyanosis or clubbing. 8.Skin: Warm, Dry. No rashes or lesions. 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 NIH stroke score is 7-8. Patient has profound weakness of the right upper and right lower extremity. Diminished sensation in this area. Unable to coordinate those limbs/extremities. No facial asymmetry, no dysarthria, no dysphagia. No aphasia. Visual cui are intact. 10.Psych: (AAO) x3. Appropriate mood and affect Course Vital Signs Vital signs: Vital Signs Pulse 88 11/13/21 12:43 Respiratory Rate 20 11/13/21 12:43 Blood Pressure 145/88 H 11/13/21 12:43 Pulse Oximetry 94 11/13/21 12:43 Pulse 75 11/13/21 13:30 Pulse 76 11/13/21 13:31 Respiratory Rate 22 11/13/21 13:31 Respiratory Effort Non-Labored 11/13/21 13:30 Respiratory Depth Normal 11/13/21 13:30 Respiratory Pattern Normal 11/13/21 13:30 Blood Pressure 141/80 H 11/13/21 13:30 Blood Pressure Mean 95 11/13/21 13:30 Pulse Oximetry 97 11/13/21 13:31 Oxygen Delivery Method Room Air 11/13/21 12:40 Oxygen Flow Rate 0 11/13/21 12:40 Pain Level 0 11/13/21 12:40 Lab/Test Results Lab/Test Results: Laboratory Tests Range/Units 11/13/21 11/13/21 11/13/21 12:40 12:40 12:40 WBC (4.4-10.8) 10^3/uL 8.81 RBC (4.36-5.78) 10^6/uL 5.39 Hgb (13.5-17.5) g/dL 15.6 Hct (40.0-50.0) % 47.5 MCV (80-95) fL 88.1 MCH (27.0-33.0) pg 28.9 MCHC (32.0-36.0) % 32.8 RDW (11.8-14.1) % 14.4 H Plt Count (130-400) 10^3/uL 213 MPV (8.0-11.0) fL 9.2 Immature Gran % 1.1 Neutrophils % 56.7 Lymphocytes % 31.7 Monocytes % 8.3 Eosinophils % 1.4 Basophils % 0.8 Nucleated RBC % % 0 Absolute Neutrophils (1.2-6.7) 10^3/uL 5.00 Absolute Lymphocytes (1.2-3.4) 10^3/uL 2.79 Absolute Monocytes (0.1-0.8) 10^3/uL 0.73 Absolute Eosinophils (0.0-0.7) 10^3/uL 0.12 Absolute Basophils (0.0-0.2) 10^3/uL 0.07 PT (9.3-11.0) sec INR (0.9-1.1) APTT (21.0-27.5) sec VBG pH (7.31-7.41) VBG pCO2 (41-51) mmHg VBG pO2 mmHg VBG HCO3 (23-28) mmol/L VBG Total CO2 (24-29) mmol/L VBG O2 Saturation % VBG Base Excess (-2-3) mmol/L Sodium (136-145) mmol/L 139 Potassium (3.5-5.1) mmol/L 3.6 Chloride (98-107) mmol/L 102 Carbon Dioxide (21.0-32.0) mmol/L 28.2 Anion Gap (3-11) mmol/L 8.8 BUN (7-18) mg/dL 20 H Creatinine (0.70-1.30) mg/dL 0.8 Estimated GFR/1.73 m2 (mL/min/1.73m2) >= 60.00 Glucose (74-106) mg/dL 103 Calcium (8.5-10.1) mg/dL 8.8 Total Bilirubin (0.2-1.0) mg/dL 0.5 AST (15-37) U/L 25 ALT (16-63) U/L 34 Alkaline Phosphatase (46-116) U/L 83 Ammonia (11-32) umol/L 15 Troponin I (<or=60) ng/L < 50 Total Protein (6.4-8.2) g/dL 7.8 Albumin (3.4-5.0) g/dL 4.0 Range/Units 11/13/21 11/13/21 12:40 12:40 WBC (4.4-10.8) 10^3/uL RBC (4.36-5.78) 10^6/uL Hgb (13.5-17.5) g/dL Hct (40.0-50.0) % MCV (80-95) fL MCH (27.0-33.0) pg MCHC (32.0-36.0) % RDW (11.8-14.1) % Plt Count (130-400) 10^3/uL MPV (8.0-11.0) fL Immature Gran % Neutrophils % Lymphocytes % Monocytes % Eosinophils % Basophils % Nucleated RBC % % Absolute Neutrophils (1.2-6.7) 10^3/uL Absolute Lymphocytes (1.2-3.4) 10^3/uL Absolute Monocytes (0.1-0.8) 10^3/uL Absolute Eosinophils (0.0-0.7) 10^3/uL Absolute Basophils (0.0-0.2) 10^3/uL PT (9.3-11.0) sec 10.0 INR (0.9-1.1) 1.0 APTT (21.0-27.5) sec 25.0 VBG pH (7.31-7.41) 7.43 H VBG pCO2 (41-51) mmHg 44 VBG pO2 mmHg 56 VBG HCO3 (23-28) mmol/L 29 H VBG Total CO2 (24-29) mmol/L 25 VBG O2 Saturation % 91 VBG Base Excess (-2-3) mmol/L 4 H Sodium (136-145) mmol/L Potassium (3.5-5.1) mmol/L Chloride (98-107) mmol/L Carbon Dioxide (21.0-32.0) mmol/L Anion Gap (3-11) mmol/L BUN (7-18) mg/dL Creatinine (0.70-1.30) mg/dL Estimated GFR/1.73 m2 (mL/min/1.73m2) Glucose (74-106) mg/dL Calcium (8.5-10.1) mg/dL Total Bilirubin (0.2-1.0) mg/dL AST (15-37) U/L ALT (16-63) U/L Alkaline Phosphatase (46-116) U/L Ammonia (11-32) umol/L Troponin I (<or=60) ng/L Total Protein (6.4-8.2) g/dL Albumin (3.4-5.0) g/dL Critical Care Time Critical Care Time Critical Care Time: Yes Total Critical Care Time: 45 Attestation: Upon my evaluation, this patient had a high probability of imminent or life-threatening deterioration, which required my direct attention, intervention, and personal management. I have personally provided 45 minutes of critical care time exclusive of time spent on separately billable procedures. Time includes review of laboratory data, radiology results, discussion with consultants, and monitoring for potential decompensation. Interventions were performed as documented.
[2021-11-13 14:00] LABS: ETHANOL BLOOD < 3.0 mg/dL (<10)
[2021-11-13 14:08] LABS: Bilirubin Negative (Negative); Blood Negative (Negative); Clarity Clear (Clear); Glucose Negative (Negative); Ketones Negative (Negative); Leukocyte Esterase Negative (Negative); Nitrite Negative (Negative); Specific Gravity 1.015 (1.005-1.025); Urobilinogen 0.2 EU/dL (Up TO 0.2)
[2021-11-13 15:57] LABS: COVID-19 PCR Negative (Negative); Source Nasal/Nares
--- NOTE | 2021-11-13 17:19 | NUR.NOTE ---
Nursing Note: COVID 19 TEST RESULT FAXED TO [facility] WHILE PT ENROUTE TO MEDICAL FACILITY VIA EMS. [place], ED
--- NOTE | 2021-12-28 21:32 | NUR.NOTE ---
Nursing Note talked with Pam via phone to confirm home medications. She reports he is not on a blood thinner, but does take 81 mg ASA daily with his bp med, both of which he has not taken since he has been sick on Wednesday. Best number to reach her for more questions is via landline [phone]:
== END 2021-11-13 15:35 | disposition short-term general hospital (02) ==
PROVIDERS: Emergency Provider Student in an Organized Health Care Education/Training Program
DX: I63.9 Cerebral infarction, unspecified (principal); G81.91 Hemiplegia, unspecified affecting right dominant side; F17.210 Nicotine dependence, cigarettes, uncomplicated; R29.707 NIHSS score 7; R53.1 Weakness; Z79.899 Other long term (current) drug therapy
CPT/HCPCS: 36415; 36416; 70496; 70498; 80053; 82805; 82962; 87635; 93005; 96361; 96365; 96376; 99291; 80320; 81003; 82140; 84484; 85025; 85610; 85730; 93010; J2997; J3490

== ENCOUNTER 2021-12-26 05:57 | Emergency (ER) | payer OTHER, SELFPAY ==
[2021-12-26] VITALS (9 sets, daily range): BP systolic 93–176; BP diastolic 74–99; PULSE 87–108; RESP 18; TEMP 36.5–36.6; O2SAT 94–98
--- NOTE | 2021-12-26 06:07 | W.ED.GENAD ---
Discharge Plan Disposition Patient Disposition: HOME Condition: Improving Discharge Details Clinical Impression: Nausea & vomiting, Ureterolithiasis Primary Care Provider: [facility] ED Provider: Yaron Mohan Home Meds and New Rx's Prescriptions: Continued acetaminophen 500 mg Tablet 500 mg PO Q4H PRN0RF budesonide-formoterol [Symbicort] 80-4.5 mcg/actuation Hfa Aerosol Inhaler 2 puff INHALATION BID 0RF ipratropium-albuterol 20-100 mcg/actuation Mist 1 puff INHALATION TID 0RF amlodipine 5 mg tablet 5 mg PO DAILY 0RF Label Comments: TAKE 1 TABLET BY MOUTH DAILY Discharge Instructions Instructions: Acute Nausea and Vomiting (ED), Kidney Stones (ED) Additional Instructions: Please follow-up with your primary care doctor within the next week. Your symptoms today are likely related to inflammation in your small intestine however on your CT scan we did see some thickening of the lower aspect of your colon that requires further follow-up as an outpatient and possible colonoscopy. You are also diagnosed with a kidney stone, the stone is small and will likely pass on its own. Follow-up with your urologist as needed. Return to the emergency department for any worsening symptomatology including uncontrolled vomiting, inability to stay hydrated decreased urination, high fevers chills or other abnormal symptoms. Medical Decision Making <Yaron Mohan DO - Last Filed: 12/26/21 07:40> This is a very pleasant 71-year-old gentleman with a past medical history of recent stroke, AAA, COPD, who presents today for 4 days of vomiting. Patient states that for the last 4 days he has been unable to keep anything down. He has been trying to drink fluids throughout the day but immediately vomited back up. He denies any chest pain or shortness of breath. He is abdominal pain is intermittent, and seems to come and go with his nausea. He denies any hematemesis, hematochezia, melena or acholic stool. He denies any diarrhea. He denies any tearing or ripping sensation in his chest or abdomen. He denies any new medications or other sick contacts. Of note this will be the 4th patient from the community this evening that I have seen that his had nausea and vomiting. Patient denies any other aggravating or relieving factors. No other complaints at this time. Exam demonstrates a chronic weakness in his right upper and lower extremity, unchanged though. He has notably dry mucous membranes. Abdomen is nontender, no guarding or rebound. Suspect gastroenteritis likely viral in origin. We will rehydrate the patient, evaluate for electrolyte abnormality, CT scan of his abdomen secondary to his history of AAA and current symptoms. Monitor closely and reassess. 6:56 AM Laboratory work-up demonstrates minimal hypokalemia. Elevated BUN in respect to the creatinine suggesting a prerenal dehydration picture. We will supplement the patient's potassium, rehydrate with a 2nd liter of normal saline, we are pending CTA at this time. Patient remained stable. Case will be signed out to my colleague Dr. Kindra Grey for reassessment after CT scan and imaging. FINDINGS: Lungs: Motion artifact limiting pulmonary detail. Mild right basilar atelectasis. Probable emphysematous disease. Heart: The visualized heart is within normal limits for size. There is no evidence of pericardial abnormality. Esophagus: The distal esophagus is normal in appearance. Aorta: Minimal atherosclerotic disease in the distal thoracic aorta. The abdominal aorta measures up to 2.7 cm in diameter. Celiac trunk and mesenteric arteries: The right hepatic artery arises from the aorta. Renal arteries: The renal arteries are patent. Right iliac arteries: No occlusion or significant stenosis. Right femoral/popliteal arteries: Significant atherosclerotic disease causing short segment severe stenosis in the right common femoral artery. Atherosclerotic disease causing moderate stenosis in the left common femoral artery. Left iliac arteries: Left common iliac artery aneurysm measuring up to 2.4 cm in diameter. Inferior vena cava: The IVC appears normal. Liver: The liver is normal in size and contour. Gallbladder and bile ducts: The gallbladder is distended with normal wall thickness and does not demonstrate calcified gallstones. No intra- or extra-hepatic biliary ductal dilatation. Pancreas: The pancreas appears normal. Spleen: The spleen appears normal. Adrenal glands: The adrenals appear normal. Kidneys and ureters: Fluid density cyst in the kidneys noted. Kidneys enhance symmetrically. 5 mm stone in the distal left ureter, approximately 3 cm above the ureterovesical junction. No significant hydroureter or hydronephrosis identified. No significant perinephric or periureteral fat stranding. Stomach and bowel: Duodenal diverticula noted. Circumferential thickening of the rectum near the rectosigmoid junction noted. No surrounding inflammatory changes identified. Colonic diverticulosis without signs of acute diverticulitis. The stomach is not well distended but appears unremarkable. Minimal wall thickening in the duodenum with mild mucosal of hyperemia but no significant inflammatory changes identified. The remainder of the small bowel is unremarkable. Appendix: The appendix is not visualized and may be surgically absent. Intraperitoneal space: The origin of the mesenteric vessels are unremarkable. Lymph nodes: No enlarged lymph nodes. Urinary bladder: The bladder is distended and demonstrates no focal contour abnormality. Reproductive: The prostate is unremarkable. The seminal vesicles are unremarkable. Bones/joints: Mild grade 1 anterolisthesis of L5 on S1 by approximately 5 mm. Soft tissues: Unremarkable. IMPRESSION: 1. Questionable mild duodenitis. 2. 5 mm stone in the distal left ureter, approximately 3 cm above the ureterovesical junction. No significant hydroureter or hydronephrosis identified. No significant perinephric or periureteral fat stranding. 3. The abdominal aorta measures up to 2.7 cm in diameter, which is nonaneurysmal. 4. Left common iliac artery aneurysm measuring up to 2.4 cm. 5. 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 6. Circumferential wall thickening of the rectum near the rectosigmoid junction, worsened compared to prior exam. No surrounding inflammatory changes identified. Recommend follow-up endoscopic evaluation. 7. Colonic diverticulosis without signs of acute diverticulitis. 8. Mild grade 1 anterolisthesis of L5 on S1 by approximately 5 mm. Thank you for allowing us to participate in the care of your patient. Dictated and Authenticated by: Bogdan Baig MD 12/26/2021 7:38 AM Eastern Time ([place] & [place]) <Jarrod Martinez MD - Last Filed: 12/26/21 08:14> This is a very pleasant 71-year-old gentleman with a past medical history of recent stroke, AAA, COPD, who presents today for 4 days of vomiting. Patient states that for the last 4 days he has been unable to keep anything down. He has been trying to drink fluids throughout the day but immediately vomited back up. He denies any chest pain or shortness of breath. He is abdominal pain is intermittent, and seems to come and go with his nausea. He denies any hematemesis, hematochezia, melena or acholic stool. He denies any diarrhea. He denies any tearing or ripping sensation in his chest or abdomen. He denies any new medications or other sick contacts. Of note this will be the 4th patient from the community this evening that I have seen that his had nausea and vomiting. Patient denies any other aggravating or relieving factors. No other complaints at this time. Exam demonstrates a chronic weakness in his right upper and lower extremity, unchanged though. He has notably dry mucous membranes. Abdomen is nontender, no guarding or rebound. Suspect gastroenteritis likely viral in origin. We will rehydrate the patient, evaluate for electrolyte abnormality, CT scan of his abdomen secondary to his history of AAA and current symptoms. Monitor closely and reassess. 6:56 AM Laboratory work-up demonstrates minimal hypokalemia. Elevated BUN in respect to the creatinine suggesting a prerenal dehydration picture. We will supplement the patient's potassium, rehydrate with a 2nd liter of normal saline, we are pending CTA at this time. Patient remained stable. Case will be signed out to my colleague Dr. Kindra Grey for reassessment after CT scan and imaging. FINDINGS: Lungs: Motion artifact limiting pulmonary detail. Mild right basilar atelectasis. Probable emphysematous disease. Heart: The visualized heart is within normal limits for size. There is no evidence of pericardial abnormality. Esophagus: The distal esophagus is normal in appearance. Aorta: Minimal atherosclerotic disease in the distal thoracic aorta. The abdominal aorta measures up to 2.7 cm in diameter. Celiac trunk and mesenteric arteries: The right hepatic artery arises from the aorta. Renal arteries: The renal arteries are patent. Right iliac arteries: No occlusion or significant stenosis. Right femoral/popliteal arteries: Significant atherosclerotic disease causing short segment severe stenosis in the right common femoral artery. Atherosclerotic disease causing moderate stenosis in the left common femoral artery. Left iliac arteries: Left common iliac artery aneurysm measuring up to 2.4 cm in diameter. Inferior vena cava: The IVC appears normal. Liver: The liver is normal in size and contour. Gallbladder and bile ducts: The gallbladder is distended with normal wall thickness and does not demonstrate calcified gallstones. No intra- or extra-hepatic biliary ductal dilatation. Pancreas: The pancreas appears normal. Spleen: The spleen appears normal. Adrenal glands: The adrenals appear normal. Kidneys and ureters: Fluid density cyst in the kidneys noted. Kidneys enhance symmetrically. 5 mm stone in the distal left ureter, approximately 3 cm above the ureterovesical junction. No significant hydroureter or hydronephrosis identified. No significant perinephric or periureteral fat stranding. Stomach and bowel: Duodenal diverticula noted. Circumferential thickening of the rectum near the rectosigmoid junction noted. No surrounding inflammatory changes identified. Colonic diverticulosis without signs of acute diverticulitis. The stomach is not well distended but appears unremarkable. Minimal wall thickening in the duodenum with mild mucosal of hyperemia but no significant inflammatory changes identified. The remainder of the small bowel is unremarkable. Appendix: The appendix is not visualized and may be surgically absent. Intraperitoneal space: The origin of the mesenteric vessels are unremarkable. Lymph nodes: No enlarged lymph nodes. Urinary bladder: The bladder is distended and demonstrates no focal contour abnormality. Reproductive: The prostate is unremarkable. The seminal vesicles are unremarkable. Bones/joints: Mild grade 1 anterolisthesis of L5 on S1 by approximately 5 mm. Soft tissues: Unremarkable. IMPRESSION: 1. Questionable mild duodenitis. 2. 5 mm stone in the distal left ureter, approximately 3 cm above the ureterovesical junction. No significant hydroureter or hydronephrosis identified. No significant perinephric or periureteral fat stranding. 3. The abdominal aorta measures up to 2.7 cm in diameter, which is nonaneurysmal. 4. Left common iliac artery aneurysm measuring up to 2.4 cm. 5. 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 6. Circumferential wall thickening of the rectum near the rectosigmoid junction, worsened compared to prior exam. No surrounding inflammatory changes identified. Recommend follow-up endoscopic evaluation. 7. Colonic diverticulosis without signs of acute diverticulitis. 8. Mild grade 1 anterolisthesis of L5 on S1 by approximately 5 mm. Thank you for allowing us to participate in the care of your patient. Dictated and Authenticated by: Bogdan Baig MD 12/26/2021 7:38 AM Eastern Time ([place] & [place]) 08: 06 patient resting comfortably no acute distress. No vomiting, patient is hemodynamically stable, receiving potassium repletion. Patient has a known history of kidney stones, no urinary symptomatology at this time no evidence of obstructive pathology in the system. Duodenitis and evidence of wall thickening at the rectosigmoid junction, patient counseled regarding need for follow-up. Patient feeling better and would like to go home. Home care instructions and return precautions given. HPI <Yaron Mohan DO - Last Filed: 12/26/21 07:40> General Date/Time Provider Initiated Documentation: 12/26/21 05:59. HPI Narrative: This is a very pleasant 71-year-old gentleman with a past medical history of recent stroke, AAA, COPD, who presents today for 4 days of vomiting. Patient states that for the last 4 days he has been unable to keep anything down. He has been trying to drink fluids throughout the day but immediately vomited back up. He denies any chest pain or shortness of breath. He is abdominal pain is intermittent, and seems to come and go with his nausea. He denies any hematemesis, hematochezia, melena or acholic stool. He denies any diarrhea. He denies any tearing or ripping sensation in his chest or abdomen. He denies any new medications or other sick contacts. Of note this will be the 4th patient from the community this evening that I have seen that his had nausea and vomiting. Patient denies any other aggravating or relieving factors. No other complaints at this time. Related Data Home Medications Medication Instructions Recorded Confirmed acetaminophen 500 mg tablet 500 mg PO Q4H PRN 04/09/21 12/26/21 budesonide-formoterol HFA 80 2 puff INHALATION BID 04/09/21 12/26/21 mcg-4.5 mcg/actuation aerosol inhaler (Symbicort) ipratropium 20 mcg-albuterol 100 1 puff INHALATION TID 04/09/21 12/26/21 mcg/actuation mist for inhalation amlodipine 5 mg tablet 5 mg PO DAILY 12/26/21 12/26/21 Allergies Allergy/AdvReac Type Severity Reaction Status Date / Time No Known Allergies Allergy Unverified 12/26/21 06:07 General Stated Complaint: Abd Prob LUCY: 3 <Jarrod Martinez MD - Last Filed: 12/26/21 08:14> HPI Narrative: This is a very pleasant 71-year-old gentleman with a past medical history of recent stroke, AAA, COPD, who presents today for 4 days of vomiting. Patient states that for the last 4 days he has been unable to keep anything down. He has been trying to drink fluids throughout the day but immediately vomited back up. He denies any chest pain or shortness of breath. He is abdominal pain is intermittent, and seems to come and go with his nausea. He denies any hematemesis, hematochezia, melena or acholic stool. He denies any diarrhea. He denies any tearing or ripping sensation in his chest or abdomen. He denies any new medications or other sick contacts. Of note this will be the 4th patient from the community this evening that I have seen that his had nausea and vomiting. Patient denies any other aggravating or relieving factors. No other complaints at this time. Review of Systems <Yaron Mohan DO - Last Filed: 12/26/21 07:40> All systems reviewed & are unremarkable except as noted in HPI and below PFSH <Yaron Mohan DO - Last Filed: 12/26/21 07:40> All Active Problems (Updated 12/26/21 @ 08:10 by Jarrod Martinez MD) Nausea & vomiting (Acute) Ureterolithiasis (Acute) Medical History AAA (abdominal aortic aneurysm) without rupture COPD (chronic obstructive pulmonary disease) Knee pain [facility]rombus [facility]: Possible thrombus Surgical History H/O cataract extraction Social History Smoking/Tobacco Use Status: Current every day Tobacco Type: cigarettes Years smoked: 50 Smoking risk assessment performed?: Yes Alcohol Intake: never Drug use: Never Substance use type: does not use Do you feel safe at home: Yes Do you feel safe in your relationship?: Yes Exam <Yaron Mohan DO - Last Filed: 12/26/21 07:40> Narrative Exam Narrative: 1.Const: Well-nourished, Well-developed, appearing stated age 2.Eyes: PERRL, no conjunctival injection, and symmetrical lids. 3.ENT: Atraumatic external nose and ears. Notably dry MM. Neck: Symmetric, trachea midline, No thyromegaly. 4.CVS: +S1/S2, No murmurs or gallops. Peripheral pulses 2+ and equal in all extremities. Brisk capillary refill in all extremities. 5.RESP: Unlabored respiratory effort. Clear to auscultation bilaterally. No wheezes rales or rhonchi 6.GI: Soft, Nontender/Nondistended, No hepatosplenomegaly. No guarding or rebound. No pain at McBurney's point, negative Soto sign. 7.MSK: Normocephalic/Atraumatic, Extremities w/o deformity or ttp No cyanosis or clubbing, Normal movement of all extremities 8.Skin: Warm, Dry. No rashes or lesions. 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 Sensation grossly intact, no focal neurologic deficits aside for his chronic weakness in his right upper and lower extremity from his recent stroke 2 months ago 10.Psych: (AAO) x3. Appropriate mood and affect Course <Yaron Mohan DO - Last Filed: 12/26/21 07:40> Vital Signs Vital signs: Vital Signs Temperature 36.6 C 12/26/21 06:03 Pulse 104 H 12/26/21 06:03 Respiratory Rate 18 12/26/21 06:03 Blood Pressure 153/99 H 12/26/21 06:03 Pulse Oximetry 98 12/26/21 06:03 Temperature 36.6 C 12/26/21 06:03 Temperature Source Temporal Artery Scan 12/26/21 06:03 Pulse 104 H 12/26/21 06:03 Respiratory Rate 18 12/26/21 06:03 Respiratory Effort 12/26/21 06:05 Blood Pressure 153/99 H 12/26/21 06:03 Blood Pressure Position Sitting 12/26/21 06:03 Pulse Oximetry 98 12/26/21 06:03 Oxygen Delivery Method Room Air 12/26/21 06:03 Oxygen Flow Rate 0 12/26/21 06:03 Pain Level 6 12/26/21 06:03 Sign Out <Yaron Mohan DO - Last Filed: 12/26/21 07:40> Sign Out Data: Sign Out Comment: Nausea and vomiting for 4 days. Notably dehydrated. Suspect viral gastroenteritis. Reassess after imaging. Last updated by Yaron Mohan DO at 12/26/21 06:58
[2021-12-26] MEDS: Ondansetron 4 MG/2 ML VIAL IVP (06:20)
[2021-12-26] MEDS: Lactated Ringers 1,000 ML 1000 ML IV (06:20)
[2021-12-26 06:25] LABS: Absolute Basophil Count 0.05 10^3/uL (0.0-0.2); Absolute Lymphocyte Count 1.15 10^3/uL (1.2-3.4); Absolute Neutrophil Count 10.03 10^3/uL (1.2-6.7); Basophils % 0.4; HCT 50.4 % (40.0-50.0); HGB 16.8 g/dL (13.5-17.5); Immature Grans % 0.8; Lymphocytes % 9.6; MCH 28.5 pg (27.0-33.0); MCHC 33.3 % (32.0-36.0); MCV 85.6 fL (80-95); MPV 9.1 fL (8.0-11.0); Monocytes % 5.8; Neutrophils % 83.4; Nucleated RBC 0 %; Platelet Count 223 10^3/uL (130-400); RBC 5.89 10^6/uL (4.36-5.78); RDW 13.4 % (11.8-14.1); RDW-SD 42.5 fL; WBC 12.03 10^3/uL (4.4-10.8)
[2021-12-26 06:39] LABS: ALT 20 U/L (16-63); AST 12 U/L (15-37); Albumin 3.9 g/dL (3.4-5.0); Alkaline Phosphatase 95 U/L (46-116); Anion Gap 10.6 mmol/L (3-11); BUN 22 mg/dL (7-18); Bilirubin, Total 0.6 mg/dL (0.2-1.0); CO2 28.4 mmol/L (21.0-32.0); CREATININE 0.9 mg/dL (0.70-1.30); Calcium 9.2 mg/dL (8.5-10.1); Chloride 100 mmol/L (98-107); Glucose 128 mg/dL (74-106); Lipase 52 U/L (73-393); Potassium 3.3 mmol/L (3.5-5.1); Sodium 139 mmol/L (136-145); Total Protein 7.7 g/dL (6.4-8.2)
--- NOTE | 2021-12-26 07:01 | DI.CT_ITS ---
Exam(s) CT ABDOMEN PELVIS CTA EXAM: CT ABDOMEN PELVIS CTA CLINICAL HISTORY: vomiting for 4 days, hx of AAA. TECHNIQUE: Imaging Protocol: Axial computed tomography images with coronal and sagittal reformatted images were created and reviewed CONTRAST MATERIAL: Intravenous: Omnipaque 350 Contrast volume:100 ml Oral: None COMPARISON: CT CT RENAL COLIC WO from 04/07/2021 FINDINGS: ABDOMINAL AORTA: There is mild fusiform dilatation of the lower abdominal aorta just above the (paten t) inferior mesenteric artery. Maximum diameter of the aorta at this level just above the inferior m esenteric artery is 2.9 cm. There is atherosclerotic disease at this level and other levels in the a bdominal aorta. Also aneurysmal dilatation of the origin of the left common iliac artery which measu res 2.4 cm diameter, this over a length of 2.3 cm along the vessel. The distal half of the left comm on iliac artery exhibits normal diameter as does the entire right common iliac artery. There is no a neurysmal dilatation of the external and internal iliac arteries. The right common femoral artery is slightly prominent measuring 1.6 cm. It also exhibits calcified and noncalcified plaque. In the ab dominal aorta there are [id number] origins of the right-sided common hepatic artery and splenic art rich. Superior mesenteric artery is patent. No tight stenosis seen at the origin of the renal arteri es and both kidneys exhibit normal size. Inferior mesenteric artery is patent. There are no ischemi c appearing bowel loops. ABDOMEN There is no ascites. LIVER: No significant focal hepatic lesions. Hepatic steatosis noted. No dilated intrahepatic ducts . GALLBLADDER/BILIARY: There is a small calculus on the dependent wall of the gallbladder. No gallblad regina wall edema. CBD is not dilated. CBD is not dilated. PANCREAS: No evidence of pancreatic mass nor dilatation of the pancreatic duct. SPLEEN: Spleen is not enlarged. There are no intrasplenic lesions. Splenic and portal veins are aviles nt. ADRENALS: There are no significant adrenal masses. KIDNEYS: There is a benign 1 cm cyst in the lateral cortex of the right kidney. No other significant focal renal findings. No hydronephrosis. There is a calcification intimately associated with the l ower left ureter just above the ureterovesical junction, this measuring 6 millimeters. This may be t he calculus which was evident in the upper ureter on the prior CT scan of April 2021. There are no ad ditional calculi in the kidneys.. ABDOMINAL AORTA: See above LYMPH NODES: There is no retroperitoneal nor para-aortic adenopathy. No obvious mesenteric masses. ABDOMINAL WALL: No evidence of significant anterior abdominal wall hernia. GI: Colonic diverticulosis but no evidence of obvious acute diverticulitis. There is, however circum ferential thickening of the rectosigmoid wall (9 millimeters). Possibly significant. PELVIS: LYMPH NODES: There is no intrapelvic nor inguinal adenopathy. GI: No evidence of appendicitis.No evidence of sigmoid diverticulitis. URINARY BLADDER: No calculi nor masses evident REPRODUCTIVE: Prostate not enlarged. Seminal vesicles unremarkable. OSSEOUS: No significant osseous lesions. IMPRESSION: 1. There is a 5-6 millimeter calculus in the left distal ureter approximately 3 cm above the UVJ. Th is may represent a calculus which was seen in the upper left ureter on the prior CT scan of April 2021 . There are no remaining calculi in the kidney. There does not appear to be dilatation of the colle cting system. No calculi in the opposite-right collecting system. 2. There is atherosclerotic involvement of the abdominal aorta with mild dilatation of the distal dom inant aorta related to atherosclerotic disease and lack of normal tapering distally. In addition, th ere is an aneurysm of the proximal left common iliac artery which measures 2.4 cm. 3. Colonic diverticulosis without evidence of acute diverticulitis. 4. There is circumferential wall thickening of the rectum near the rectosigmoid junction. This shoul d be further study with colonoscopy. RADIATION DOSE DELIVERED: 814.61mGy.cm Total DLP DATA REPOSITORY: All CT scans at this facility are submitted to the National Radiology Data Registry (NRDR) Dose Index Registry (DIR) with the [employer] [place] [employer] (A[employer]). RADIATION OPTIMIZATION: All CT scans at this facility use at least one of these dose optimization te chniques: automated exposure control; mA and/or kV adjustment per patient size (includes targeted exa ms where dose is matched to clinical indication); or iterative reconstruction.
[2021-12-26] MEDS: Omnipaque 350 MG/ML 100 ML BTL IJ (07:22)
--- NOTE | 2021-12-26 07:38 | DI.VRAD_ITS ---
PROCEDURE INFORMATION: Exam: CTA Abdomen and Pelvis With Contrast Exam date and time: 12/26/2021 6:07 AM Age: 71 years old Clinical indication: Patient HX: Vomiting, HX of aaa TECHNIQUE: Imaging protocol: Computed tomographic angiography of the abdomen and pelvis with contrast material. 3D rendering (Not supervised by radiologist): MIP and/or 3D reconstructed images were created by the technologist. Radiation optimization: All CT scans at this facility use at least one of these dose optimization techniques: automated exposure control; mA and/or kV adjustment per patient size (includes targeted exams where dose is matched to clinical indication); or iterative reconstruction. Contrast material: OMNI-PAQUE 350; Contrast volume: 100 ml; Contrast route: INTRAVENOUS (IV); COMPARISON: CT RENAL COLIC WO 04/07/2021 9:31 AM FINDINGS: Lungs: Motion artifact limiting pulmonary detail. Mild right basilar atelectasis. Probable emphysematous disease. Heart: The visualized heart is within normal limits for size. There is no evidence of pericardial abnormality. Esophagus: The distal esophagus is normal in appearance. Aorta: Minimal atherosclerotic disease in the distal thoracic aorta. The abdominal aorta measures up to 2.7 cm in diameter. Celiac trunk and mesenteric arteries: The right hepatic artery arises from the aorta. Renal arteries: The renal arteries are patent. Right iliac arteries: No occlusion or significant stenosis. Right femoral/popliteal arteries: Significant atherosclerotic disease causing short segment severe stenosis in the right common femoral artery. Atherosclerotic disease causing moderate stenosis in the left common femoral artery. Left iliac arteries: Left common iliac artery aneurysm measuring up to 2.4 cm in diameter. Inferior vena cava: The IVC appears normal. Liver: The liver is normal in size and contour. Gallbladder and bile ducts: The gallbladder is distended with normal wall thickness and does not demonstrate calcified gallstones. No intra- or extra-hepatic biliary ductal dilatation. Pancreas: The pancreas appears normal. Spleen: The spleen appears normal. Adrenal glands: The adrenals appear normal. Kidneys and ureters: Fluid density cyst in the kidneys noted. Kidneys enhance symmetrically. 5 mm stone in the distal left ureter, approximately 3 cm above the ureterovesical junction. No significant hydroureter or hydronephrosis identified. No significant perinephric or periureteral fat stranding. Stomach and bowel: Duodenal diverticula noted. Circumferential thickening of the rectum near the rectosigmoid junction noted. No surrounding inflammatory changes identified. Colonic diverticulosis without signs of acute diverticulitis. The stomach is not well distended but appears unremarkable. Minimal wall thickening in the duodenum with mild mucosal of hyperemia but no significant inflammatory changes identified. The remainder of the small bowel is unremarkable. Appendix: The appendix is not visualized and may be surgically absent. Intraperitoneal space: The origin of the mesenteric vessels are unremarkable. Lymph nodes: No enlarged lymph nodes. Urinary bladder: The bladder is distended and demonstrates no focal contour abnormality. Reproductive: The prostate is unremarkable. The seminal vesicles are unremarkable. Bones/joints: Mild grade 1 anterolisthesis of L5 on S1 by approximately 5 mm. Soft tissues: Unremarkable. IMPRESSION: 1. Questionable mild duodenitis. 2. 5 mm stone in the distal left ureter, approximately 3 cm above the ureterovesical junction. No significant hydroureter or hydronephrosis identified. No significant perinephric or periureteral fat stranding. 3. The abdominal aorta measures up to 2.7 cm in diameter, which is nonaneurysmal. 4. Left common iliac artery aneurysm measuring up to 2.4 cm. 5. 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 6. Circumferential wall thickening of the rectum near the rectosigmoid junction, worsened compared to prior exam. No surrounding inflammatory changes identified. Recommend follow-up endoscopic evaluation. 7. Colonic diverticulosis without signs of acute diverticulitis. 8. Mild grade 1 anterolisthesis of L5 on S1 by approximately 5 mm. Dictated and Authenticated by: Bogdan Baig MD. Ordering:JASON Marrufo MD
[2021-12-26] MEDS: Normal Saline 1,000 ML 1000 ML IV (07:41)
[2021-12-26] MEDS: POTASSIUM CHLORIDE 10 MEQ/100 ML BAG 100 MEQ IVPB (07:42)
[2021-12-26 07:52] LABS: Bilirubin Negative (Negative); Blood Trace-intact (Negative); Clarity Clear (Clear); Glucose Negative (Negative); Ketones Negative (Negative); Leukocyte Esterase Negative (Negative); Nitrite Negative (Negative); Specific Gravity 1.015 (1.005-1.025); Urobilinogen 0.2 EU/dL (Up TO 0.2)
[2021-12-26 07:59] LABS: WBC Negative HPF (0-5)
[2021-12-26 08:00] LABS: Bacteria Negative HPF (Negative); C & S Indicated? No; Casts Negative LPF (Negative); Crystals Negative HPF (Negative); Epithelial Cells Rare HPF (Negative); Mucus Negative (Negative); RBC 0-2 HPF (0-2)
== END 2021-12-26 08:48 | disposition home or self-care (01) ==
PROVIDERS: Student in an Organized Health Care Education/Training Program; Emergency Provider Emergency Medicine
DX: R11.2 Nausea with vomiting, unspecified (principal); N20.1 Calculus of ureter; E87.6 Hypokalemia
CPT/HCPCS: 80053; 83690; 96361; 96365; 96375; 99285; 74174; 81003; 81015; 85025; 99284; J2405; J3480; J3490

== ENCOUNTER 2021-12-28 14:23 | Observation (INO) | payer OTHER, SELFPAY ==
[2021-12-28] VITALS (14 sets, daily range): BP systolic 141–181; BP diastolic 79–102; PULSE 80–100; RESP 16–18; TEMP 36.4–36.8; O2SAT 81–96
--- NOTE | 2021-12-28 14:30 | RT.EKG_ITS ---
APPROVED REPORT Exam: Resting ECG Reason for Exam: weakness vomiting Patient Location: E HR:92 bpm ECG Measurements Heart Rate 92 AXIS [place] 158 P 21 QRSd 96 QRS 63 QT 380 T 59 QTc 468 Conclusion Sinus rhythm...normal P axis, V-rate 60- 99 Atrial premature complex...SV complex w/ short R-R interval. Sinus. PACs. No STEMI. I have reviewed and interpreted ECG and agree with software generated interpretation.
[2021-12-28 15:00] LABS: Abs Immature Grans 0.15 10^3/uL (0.0-0.06); Absolute Lymphocyte Count 2.13 10^3/uL (1.2-3.4); Basophils % 0.4; Eosinophils % 0.6; HCT 46.3 % (40.0-50.0); HGB 15.7 g/dL (13.5-17.5); Immature Grans % 1.1; MCH 28.5 pg (27.0-33.0); MCHC 33.9 % (32.0-36.0); MCV 84.2 fL (80-95); MPV 9.4 fL (8.0-11.0); Monocytes % 8.5; Neutrophils % 74.4; Nucleated RBC 0 %; Platelet Count 251 10^3/uL (130-400); RDW 13.3 % (11.8-14.1); RDW-SD 41.4 fL; WBC 14.19 10^3/uL (4.4-10.8)
[2021-12-28 15:01] LABS: Absolute Basophil Count 0.06 10^3/uL (0.0-0.2); Absolute Eosinophil Count 0.09 10^3/uL (0.0-0.7); Absolute Monocyte Count 1.21 10^3/uL (0.1-0.8); Absolute Neutrophil Count 10.56 10^3/uL (1.2-6.7)
--- NOTE | 2021-12-28 15:15 | DI.CT_ITS ---
Exam(s) CT ABDOMEN PELVIS W EXAM: CT ABDOMEN PELVIS W CLINICAL HISTORY: bilateral lower abdominal pain, leukocytosis. TECHNIQUE: Imaging Protocol: Axial computed tomography images with coronal and sagittal reformatted images were created and reviewed CONTRAST MATERIAL: Intravenous: Omnipaque 350 Contrast volume:100 ml Oral: no COMPARISON: CT CT RENAL COLIC WO from 04/07/[address] ABDOMEN PELVIS CTA from 12/26/2021 FINDINGS: ABDOMEN: Lung Bases: Mild atelectasis versus scarring. Mitral valve and coronary artery calcifications. Liver: Mild fatty infiltration. Small hypodensity in the falciform ligament, too small to characteriz e. Gallbladder and biliary tract: No radiodense calculus or dilation. Pancreas: Normal density, no abnormal calcifications or inflammatory process. Spleen: Normal. Kidneys: Normal size, contour and axis. Nonobstructing stone mid left kidney. 6 millimeter stone dist al left ureter, unchanged in position. No significant hydronephrosis. Multiple tiny cysts. No masses seen. Adrenal glands: No masses seen. Abdominal Aorta: Atherosclerotic changes. No change mild dilatation and mild mural thrombus. Stable d ilatation left common iliac artery. Bowel: A small diverticulum descending duodenum, unchanged from 2020. Mild wall thickening of the duo denum with surrounding stranding could indicate duodenitis. PELVIS: Bladder: No gross wall thickening. No calculi.No focal mass. Bowel: Diverticulosis greatest in the descending and sigmoid colon. No evidence of diverticulitis. No obstruction or bowel wall thickening. Large quantity of stool in the rectum. Moderate to increased s tool elsewhere. Peritoneal cavity: No ascites, collection or mesenteric inflammatory response. Bones: Degenerative changes, unremarkable for age. Reproductive organs: Within normal limits. Lymph nodes: Unremarkable. Soft tissues: Small fatty containing bilateral inguinal hernias. Impression: Question of wall thickening of the duodenum which could indicate duodenitis. diverticulum descending duodenum, unchanged. 6 millimeter stone distal left ureter, unchanged in position. This does not appear to be causing sign ificant hydronephrosis. RADIATION DOSE DELIVERED: 909.52mGy.cm Total DLP DATA REPOSITORY: All CT scans at this facility are submitted to the National Radiology Data Registry (NRDR) Dose Index Registry (DIR) with the [employer] (A[employer]). RADIATION OPTIMIZATION: All CT scans at this facility use at least one of these dose optimization te chniques: automated exposure control; mA and/or kV adjustment per patient size (includes targeted exa ms where dose is matched to clinical indication); or iterative reconstruction.
[2021-12-28 15:20] LABS: ALT 21 U/L (16-63); AST 12 U/L (15-37); Albumin 3.7 g/dL (3.4-5.0); Alkaline Phosphatase 88 U/L (46-116); Anion Gap 9.4 mmol/L (3-11); BUN 24 mg/dL (7-18); Bilirubin, Total 0.7 mg/dL (0.2-1.0); CO2 28.6 mmol/L (21.0-32.0); Calcium 9.2 mg/dL (8.5-10.1); Chloride 98 mmol/L (98-107); Glucose 93 mg/dL (74-106); Lipase 58 U/L (73-393); Magnesium 2.1 mg/dL (1.8-2.4); Potassium 3.2 mmol/L (3.5-5.1); Sodium 136 mmol/L (136-145); Total Protein 7.3 g/dL (6.4-8.2)
[2021-12-28 15:43] LABS: Lactate 0.9 mmol/L (0.6-1.4)
[2021-12-28 15:45] LABS: C-Reactive Protein 0.45 mg/dL (0.0-0.3)
[2021-12-28] MEDS: Normal Saline 1,000 ML 1000 ML IV (15:51)
[2021-12-28] MEDS: MORPHine 4 MG/ML SYR IVP (15:51)
[2021-12-28] MEDS: Ondansetron 4 MG/2 ML VIAL IVP (15:51)
--- NOTE | 2021-12-28 15:54 | W.ED.GENAD ---
Discharge Plan Disposition Patient Disposition: [facility] INPATIENT Condition: Improving Discharge Details Clinical Impression: Nausea & vomiting, Diverticulitis, Duodenal ulcer Admit Date/Time: 12/28/21 20:26 Admit Provider: Kirk Prather Attending Provider: Kirk Prather Primary Care Provider: [facility] ED Provider: Manda Pardo Discharge Data Discharge Date/Time-TO BE ENTERED AT DEPARTURE: 12/28/21 21:55 Medical Decision Making <GAUTAM Marley - Last Filed: 12/30/21 10:00> Patient is tender diffusely but most significantly in the suprapubic and left lower quadrant region He is afebrile I reviewed his CT scan from 2 days prior to arrival and at the CTA which is not the best diagnostic test for infectious or alternative etiologies I will repeat his CT scan We will check urinalysis He is received IV morphine, IV fluids Patient is resting comfortably in room at time of reassessment pt is mildly hypokalemic, 3.2 Mag is stable signed out to Manda Pardo pending ct, urinalysis, and reassessment <Manda Pardo NP - Last Filed: 12/28/21 21:34> Patient is tender diffusely but most significantly in the suprapubic and left lower quadrant region He is afebrile I reviewed his CT scan from 2 days prior to arrival and at the CTA which is not the best diagnostic test for infectious or alternative etiologies I will repeat his CT scan We will check urinalysis He is received IV morphine, IV fluids Patient is resting comfortably in room at time of reassessment pt is mildly hypokalemic, 3.2 Mag is stable signed out to Manda Pardo pending ct, urinalysis, and reassessment care of patient received, awaiting CT scan given apap 1000 mg IVPB and toradol 15mg IVP with improvement in pain CT results reviewed with DR Wyatt who recommends transfer for scope CT results reviewed with DR Young at [facility] who recommends medical management with scope in 2-3 months. given cipro and flagyl IVPB. case discussed with DR Prather who will admit here for IV fluids, antiemetics and abx treatment for diverticulitis, will treat suspected duodenal ulcer with PPI, carafate Medical Records Medical records reviewed: Yes I reviewed the patient's medical records. Imaging Data Radiologic Study: Imaging: CT Scan Radiologist's impression: PROCEDURE INFORMATION: Exam: CT Abdomen And Pelvis With Contrast Exam date and time: 12/28/2021 3:25 PM Age: 71 years old Clinical indication: Abdominal pain; Other: Lower abd pain, leukocytosis TECHNIQUE: Imaging protocol: Computed tomography of the abdomen and pelvis with contrast. Radiation optimization: All CT scans at this facility use at least one of these dose optimization techniques: automated exposure control; mA and/or kV adjustment per patient size (includes targeted exams where dose is matched to clinical indication); or iterative reconstruction. Contrast material: OMNIPAQUE 350; Contrast volume: 100 ml; Contrast route: INTRAVENOUS (IV);? COMPARISON: CT ABDOMEN PELVIS CTA 12/26/2021 6:57 AM .? CT scan, 04/07/2021 FINDINGS: Lungs: Atelectasis versus scarring at the lung bases. Heart: Coronary artery calcifications. Liver:? Small hypodensity near the falciform ligament, series 4, image 21.? This is a good location for focal fat or a small portal perfusion defect.? If indicated, diagnosis can be confirmed with MRI.? Hepatic steatosis. Gallbladder and bile ducts: Normal. No calcified stones. No ductal dilation. Pancreas: Normal. No ductal dilation. Spleen: Normal. No splenomegaly. Adrenal glands: Normal. No mass. Kidneys and ureters:? Cystic structures and too small to characterize hypodensities are noted in each kidney.? There is a left renal parenchymal calcification.? 6 mm distal left ureteral calculus is unchanged in position from prior exam.? Stomach and bowel:? There is wall prominence to the stomach and duodenum, worrisome for gastroduodenitis.? There is some haziness to the salty- duodenal fat.? An outpouching of gas is noted extending from the medial duodenum which may be within a diverticulum.? However, given the adjacent inflammation, a duodenal ulcer is not excluded.? No evidence of bowel obstruction.? There is some wall prominence to the sigmoid colon which can be seen with underdistention or colitis.? Colonic diverticulosis is seen.? There is some stranding of the adjacent fat along the distal descending colon, series 6, image 46, for which an element of diverticulitis is not excluded.? Appendix:? Not clearly seen. Intraperitoneal space: Unremarkable. No free air. No significant fluid collection. Vasculature:? Calcified and noncalcified plaque is noted in the aorta and branch vessels.? Aneurysmal dilation of the infrarenal abdominal aorta and left common iliac artery is unchanged. Lymph nodes: Unremarkable. No enlarged lymph nodes. Urinary bladder: Unremarkable as visualized. Reproductive:? Prostate calcifications. Bones/joints:? Skeletal degenerative changes.? Unchanged anterolisthesis of L5 on S1. No acute fracture. Soft tissues:? Small umbilical hernia containing fat.? Bilateral inguinal hernias containing fat. IMPRESSION: 1. Some wall prominence to the sigmoid colon which can be seen with underdistention or colitis.? There is some stranding along diverticula in the distal descending colon for which an element of diverticulitis is not excluded. 2. 6 mm distal left ureteral calculus is unchanged in position from prior exam. ? 3. There is wall prominence to the stomach and duodenum, worrisome for gastroduodenitis.? There is some haziness to the slaty- duodenal fat.? An outpouching of gas is noted extending from the medial duodenum which may be within a diverticulum.? However, given the adjacent inflammation, a duodenal ulcer is not excluded.? Clinical correlation recommended.? A GI consult may be considered for appropriate management. 4. Other findings/details as above.? Dictated and Authenticated by: Christa Faulkner MD. Ordering:KAYLEIGH Claudio MD Lab Data Lab results reviewed: Yes I reviewed the patient's lab results. Labs: Laboratory Results - last 24 hr 12/28/21 12/28/21 12/28/21 14:45 14:45 14:45 WBC 14.19 H RBC 5.50 Hgb 15.7 Hct 46.3 MCV 84.2 MCH 28.5 MCHC 33.9 RDW 13.3 Plt Count 251 MPV 9.4 Immature Gran % 1.1 Neutrophils % 74.4 Lymphocytes % 15.0 Monocytes % 8.5 Eosinophils % 0.6 Basophils % 0.4 Nucleated RBC % 0 Absolute Neutrophils 10.56 H Absolute Lymphocytes 2.13 Absolute Monocytes 1.21 H Absolute Eosinophils 0.09 Absolute Basophils 0.06 VBG Lactate Sodium 136 Potassium 3.2 L Chloride 98 Carbon Dioxide 28.6 Anion Gap 9.4 BUN 24 H Creatinine 1.0 Estimated GFR/1.73 m2 >= 60.00 Glucose 93 Calcium 9.2 Magnesium 2.1 Total Bilirubin 0.7 AST 12 L ALT 21 Alkaline Phosphatase 88 C-Reactive Protein 0.45 H Total Protein 7.3 Albumin 3.7 Lipase 58 Urine Color Urine Clarity Urine pH Ur Specific [place] Urine Protein Urine Ketones Urine Blood Urine Nitrite Urine Bilirubin Urine Urobilinogen Ur Leukocyte Esterase Urine Glucose 12/28/21 12/28/21 15:38 16:06 WBC RBC Hgb Hct MCV MCH MCHC RDW Plt Count MPV Immature Gran % Neutrophils % Lymphocytes % Monocytes % Eosinophils % Basophils % Nucleated RBC % Absolute Neutrophils Absolute Lymphocytes Absolute Monocytes Absolute Eosinophils Absolute Basophils VBG Lactate 0.9 Sodium Potassium Chloride Carbon Dioxide Anion Gap BUN Creatinine Estimated GFR/1.73 m2 Glucose Calcium Magnesium Total Bilirubin AST ALT Alkaline Phosphatase C-Reactive Protein Total Protein Albumin Lipase Urine Color Yellow Urine Clarity Clear Urine pH 6.0 Ur Specific [place] 1.025 Urine Protein Negative Urine Ketones Negative Urine Blood Negative Urine Nitrite Negative Urine Bilirubin Negative Urine Urobilinogen 0.2 Ur Leukocyte Esterase Negative Urine Glucose Negative HPI <GAUTAM Marley - Last Filed: 12/30/21 10:00> General Date/Time Provider Initiated Documentation: 12/28/21 14:36. HPI Narrative: This 71-year-old gentleman presents with report of nausea and severe abdominal cramping. He states that he was here on Wednesday with similar symptoms. Denies prior history of similar pain in the past. He denies any chest pain or shortness of breath. He denies any dizziness or weakness. Diagnosed with a kidney stone but was described this is unlikely the cause of his symptoms. He denies fever. He states he is vomiting only secondary to the pain. Denies any diarrhea. Denies any dysuria or oliguria. Related Data Home Medications Medication Instructions Recorded Confirmed acetaminophen 500 mg tablet 500 mg PO Q4H PRN 04/09/21 12/28/21 budesonide-formoterol HFA 80 2 puff INHALATION BID 04/09/21 12/28/21 mcg-4.5 mcg/actuation aerosol inhaler (Symbicort) ipratropium 20 mcg-albuterol 100 1 puff INHALATION TID 04/09/21 12/28/21 mcg/actuation mist for inhalation amlodipine 5 mg tablet 5 mg PO DAILY 12/26/21 12/28/21 aspirin 81 mg tablet 81 mg PO DAILY 12/28/21 12/28/21 amoxicillin 875 mg-potassium 1 tab PO BID #10 tab 12/29/21 clavulanate 125 mg tablet pantoprazole 40 mg tablet,delayed 40 mg PO BID #60 tab 12/29/21 release polyethylene glycol 3350 17 gram 17 g PO DAILY #30 ea 12/29/21 oral powder packet sucralfate 1 gram tablet (Carafate) 1 g PO QACHS #120 tab 12/29/21 Previous Rx's Medication Instructions Recorded amoxicillin 875 mg-potassium 1 tab PO BID #10 tab 12/29/21 clavulanate 125 mg tablet pantoprazole 40 mg tablet,delayed 40 mg PO BID #60 tab 12/29/21 release polyethylene glycol 3350 17 gram 17 g PO DAILY #30 ea 12/29/21 oral powder packet sucralfate 1 gram tablet (Carafate) 1 g PO QACHS #120 tab 12/29/21 Allergies Allergy/AdvReac Type Severity Reaction Status Date / Time No Known Allergies Allergy Unverified 12/28/21 14:45 General Stated Complaint: Abd Prob LUCY: 3 Review of Systems <GAUTAM Marley - Last Filed: 12/30/21 10:00> All systems reviewed & are unremarkable except as noted in HPI and below PFSH <GAUTAM Marley - Last Filed: 12/30/21 10:00> All Active Problems (Updated 12/29/21 @ 10:34 by Manda Pardo NP) Discharge planning issues (Acute) Stroke (Chronic) Nausea & vomiting (Acute) Diverticulitis (Chronic) Duodenal ulcer (Acute) Ureterolithiasis (Acute) Medical History AAA (abdominal aortic aneurysm) without rupture COPD (chronic obstructive pulmonary disease) Knee pain [facility]rombus [facility]: Possible thrombus Surgical History H/O cataract extraction Social History Smoking/Tobacco Use Status: Current every day Tobacco Type: cigarettes Years smoked: 50 Smoking risk assessment performed?: Yes Alcohol Intake: never Drug use: Never Substance use type: does not use Do you feel safe at home: Yes Do you feel safe in your relationship?: Yes Exam <GAUTAM Marley - Last Filed: 12/30/21 10:00> Const General: cooperative and acute distress Eyes Sclera: sclerae normal Resp Effort & Inspection: normal respiratory effort Cardio Rate: regular rate Rhythm: regular rhythm GI Inspection: normal to inspection Other: tenderness with palpation to bilateral lower quadrants No abdominal bruit or pulsatile mass Skin General skin exam: no rashes or lesions noted Neuro General: patient alert and patient oriented x3 Extrem General: normal to inspection Other: Distal pulses intact Course <GAUTAM Marley - Last Filed: 12/30/21 10:00> Vital Signs Vital signs: Vital Signs Temperature 36.4 C L 12/28/21 14:42 Pulse 100 H 12/28/21 14:42 Respiratory Rate 18 12/28/21 14:42 Blood Pressure 148/96 H 12/28/21 14:42 Pulse Oximetry 95 12/28/21 14:42 Temperature 36.4 C L 12/28/21 14:42 Temperature Source Temporal Artery Scan 12/28/21 14:42 Pulse 100 H 12/28/21 14:42 Respiratory Rate 18 12/28/21 14:42 Blood Pressure 148/96 H 12/28/21 14:42 Blood Pressure Position Supine 12/28/21 14:42 Pulse Oximetry 95 12/28/21 14:42 Oxygen Delivery Method Room Air 12/28/21 14:42 Oxygen Flow Rate 0 12/28/21 14:42 Pain Level 8 12/28/21 15:51 Lab/Test Results Lab/Test Results: Laboratory Tests Range/Units 12/28/21 12/28/21 12/28/21 14:45 14:45 14:45 WBC (4.4-10.8) 10^3/uL 14.19 H RBC (4.36-5.78) 10^6/uL 5.50 Hgb (13.5-17.5) g/dL 15.7 Hct (40.0-50.0) % 46.3 MCV (80-95) fL 84.2 MCH (27.0-33.0) pg 28.5 MCHC (32.0-36.0) % 33.9 RDW (11.8-14.1) % 13.3 Plt Count (130-400) 10^3/uL 251 MPV (8.0-11.0) fL 9.4 Immature Gran % 1.1 Neutrophils % 74.4 Lymphocytes % 15.0 Monocytes % 8.5 Eosinophils % 0.6 Basophils % 0.4 Nucleated RBC % % 0 Absolute Neutrophils (1.2-6.7) 10^3/uL 10.56 H Absolute Lymphocytes (1.2-3.4) 10^3/uL 2.13 Absolute Monocytes (0.1-0.8) 10^3/uL 1.21 H Absolute Eosinophils (0.0-0.7) 10^3/uL 0.09 Absolute Basophils (0.0-0.2) 10^3/uL 0.06 VBG Lactate (0.6-1.4) mmol/L Sodium (136-145) mmol/L 136 Potassium (3.5-5.1) mmol/L 3.2 L Chloride (98-107) mmol/L 98 Carbon Dioxide (21.0-32.0) mmol/L 28.6 Anion Gap (3-11) mmol/L 9.4 BUN (7-18) mg/dL 24 H Creatinine (0.70-1.30) mg/dL 1.0 Estimated GFR/1.73 m2 (mL/min/1.73m2) >= 60.00 Glucose (74-106) mg/dL 93 Calcium (8.5-10.1) mg/dL 9.2 Magnesium (1.8-2.4) mg/dL 2.1 Total Bilirubin (0.2-1.0) mg/dL 0.7 AST (15-37) U/L 12 L ALT (16-63) U/L 21 Alkaline Phosphatase (46-116) U/L 88 C-Reactive Protein (0.0-0.3) mg/dL 0.45 H Total Protein (6.4-8.2) g/dL 7.3 Albumin (3.4-5.0) g/dL 3.7 Lipase (73-393) U/L 58 Range/Units 12/28/21 15:38 WBC (4.4-10.8) 10^3/uL RBC (4.36-5.78) 10^6/uL Hgb (13.5-17.5) g/dL Hct (40.0-50.0) % MCV (80-95) fL MCH (27.0-33.0) pg MCHC (32.0-36.0) % RDW (11.8-14.1) % Plt Count (130-400) 10^3/uL MPV (8.0-11.0) fL Immature Gran % Neutrophils % Lymphocytes % Monocytes % Eosinophils % Basophils % Nucleated RBC % % Absolute Neutrophils (1.2-6.7) 10^3/uL Absolute Lymphocytes (1.2-3.4) 10^3/uL Absolute Monocytes (0.1-0.8) 10^3/uL Absolute Eosinophils (0.0-0.7) 10^3/uL Absolute Basophils (0.0-0.2) 10^3/uL VBG Lactate (0.6-1.4) mmol/L 0.9 Sodium (136-145) mmol/L Potassium (3.5-5.1) mmol/L Chloride (98-107) mmol/L Carbon Dioxide (21.0-32.0) mmol/L Anion Gap (3-11) mmol/L BUN (7-18) mg/dL Creatinine (0.70-1.30) mg/dL Estimated GFR/1.73 m2 (mL/min/1.73m2) Glucose (74-106) mg/dL Calcium (8.5-10.1) mg/dL Magnesium (1.8-2.4) mg/dL Total Bilirubin (0.2-1.0) mg/dL AST (15-37) U/L ALT (16-63) U/L Alkaline Phosphatase (46-116) U/L C-Reactive Protein (0.0-0.3) mg/dL Total Protein (6.4-8.2) g/dL Albumin (3.4-5.0) g/dL Lipase (73-393) U/L Sign Out <GAUTAM Marley - Last Filed: 12/30/21 10:00> Sign Out Data: Sign Out Comment: Patient resting comfortably at time of reassessment, has a left UVJ stone on prior CT 12/26/[address] scan at this time Mild hypokalemia, 3.2, have not been supplemented yet EKG without notable acute change Pending urinalysis Last updated by Shanon Augustine PA at 12/28/21 16:28
[2021-12-28 16:15] LABS: Bilirubin Negative (Negative); Blood Negative (Negative); Clarity Clear (Clear); Glucose Negative (Negative); Ketones Negative (Negative); Leukocyte Esterase Negative (Negative); Nitrite Negative (Negative); Specific Gravity 1.025 (1.005-1.025); Urobilinogen 0.2 EU/dL (Up TO 0.2)
[2021-12-28] MEDS: Omnipaque 350 MG/ML 100 ML BTL IJ (17:00)
[2021-12-28] MEDS: Normal Saline Flush 10 ML SYR IVP (17:01)
[2021-12-28] MEDS: ACETAMINOPHEN 1,000 MG/100 ML BTL 400 MG IVPB (17:18)
[2021-12-28] MEDS: Ketorolac 15 MG/ML VIAL IVP (17:19)
--- NOTE | 2021-12-28 17:33 | DI.VRAD_ITS ---
PROCEDURE INFORMATION: Exam: CT Abdomen And Pelvis With Contrast Exam date and time: 12/28/2021 3:25 PM Age: 71 years old Clinical indication: Abdominal pain; Other: Lower abd pain, leukocytosis TECHNIQUE: Imaging protocol: Computed tomography of the abdomen and pelvis with contrast. Radiation optimization: All CT scans at this facility use at least one of these dose optimization techniques: automated exposure control; mA and/or kV adjustment per patient size (includes targeted exams where dose is matched to clinical indication); or iterative reconstruction. Contrast material: OMNIPAQUE 350; Contrast volume: 100 ml; Contrast route: INTRAVENOUS (IV); COMPARISON: CT ABDOMEN PELVIS CTA 12/26/2021 6:[address] scan, 04/07/2021 FINDINGS: Lungs: Atelectasis versus scarring at the lung bases. Heart: Coronary artery calcifications. Liver: Small hypodensity near the falciform ligament, series 4, image 21. This is a good location for focal fat or a small portal perfusion defect. If indicated, diagnosis can be confirmed with MRI. Hepatic steatosis. Gallbladder and bile ducts: Normal. No calcified stones. No ductal dilation. Pancreas: Normal. No ductal dilation. Spleen: Normal. No splenomegaly. Adrenal glands: Normal. No mass. Kidneys and ureters: Cystic structures and too small to characterize hypodensities are noted in each kidney. There is a left renal parenchymal calcification. 6 mm distal left ureteral calculus is unchanged in position from prior exam. Stomach and bowel: There is wall prominence to the stomach and duodenum, worrisome for gastroduodenitis. There is some haziness to the salty- duodenal fat. An outpouching of gas is noted extending from the medial duodenum which may be within a diverticulum. However, given the adjacent inflammation, a duodenal ulcer is not excluded. No evidence of bowel obstruction. There is some wall prominence to the sigmoid colon which can be seen with underdistention or colitis. Colonic diverticulosis is seen. There is some stranding of the adjacent fat along the distal descending colon, series 6, image 46, for which an element of diverticulitis is not excluded. Appendix: Not clearly seen. Intraperitoneal space: Unremarkable. No free air. No significant fluid collection. Vasculature: Calcified and noncalcified plaque is noted in the aorta and branch vessels. Aneurysmal dilation of the infrarenal abdominal aorta and left common iliac artery is unchanged. Lymph nodes: Unremarkable. No enlarged lymph nodes. Urinary bladder: Unremarkable as visualized. Reproductive: Prostate calcifications. Bones/joints: Skeletal degenerative changes. Unchanged anterolisthesis of L5 on S1. No acute fracture. Soft tissues: Small umbilical hernia containing fat. Bilateral inguinal hernias containing fat. IMPRESSION: 1. Some wall prominence to the sigmoid colon which can be seen with underdistention or colitis. There is some stranding along diverticula in the distal descending colon for which an element of diverticulitis is not excluded. 2. 6 mm distal left ureteral calculus is unchanged in position from prior exam. 3. There is wall prominence to the stomach and duodenum, worrisome for gastroduodenitis. There is some haziness to the salty- duodenal fat. An outpouching of gas is noted extending from the medial duodenum which may be within a diverticulum. However, given the adjacent inflammation, a duodenal ulcer is not excluded. Clinical correlation recommended. A GI consult may be considered for appropriate management. 4. Other findings/details as above. Dictated and Authenticated by: Christa Faulkner MD. Ordering:KAYLEIGH Claudio MD
[2021-12-28] MEDS: Pantoprazole 40 MG VIAL 80 MG IVP (18:53)
[2021-12-28] MEDS: Normal Saline 50 ML (19:39)
[2021-12-28] MEDS: CIPROFLOXACIN 400 MG/200 ML BAG 200 MG IVPB (20:13)
[2021-12-28] MEDS: metroNIDAZOLE 500 MG/100 ML BAG 100 MG IVPB (20:43)
--- NOTE | 2021-12-28 21:07 | HPE_ITS ---
Assessment and Plan Assessment and plan (1) Nausea & vomiting: Status: Acute Assessment and plan: This is likely due to his diverticulitis is a duodenal ulcer. We will continue IV fluids and antiemetics as needed. Start him on clear fluids. (2) Diverticulitis: Status: Chronic Assessment and plan: He will be treated with ceftriaxone and metronidazole. He was given 1 dose of ciprofloxacin in the emergency department but because of the tendon rupture problem that sometimes occurs with ciprofloxacin antibiotics there is similar I will treated with ceftriaxone and metronidazole. He states he has never had a colonoscopy and in light of diverticulitis I think he will need this done to evaluate his colon. (3) Duodenal ulcer: Status: Acute Assessment and plan: He will be started on pantoprazole and sucralfate. He will be given clear liquids. He will likely need an EGD to evaluate the duodenal ulcer. It does not need to be done acutely at this time. (4) Ureterolithiasis: Status: Acute Assessment and plan: This ureterolithiasis is not causing any hydronephrosis at the present time there is no evidence of urinary tract infection. I do see that he saw urology 6 months ago. It appears the stone is still present. He should have a repeat urology visit. (5) Stroke: Status: Chronic Assessment and plan: We will attempt to get records on the history of the stroke. He says he is on anticoagulant and baby aspirin. I do know if he has a history of atrial fibrillation but I would suspect that possibly that could be the case if he is on the anticoagulant. The nurse checked with the pharmacy records and there is no anticoagulant prescribed. History of Present Illness History of Present Illness Chief Complaint: abdominal pain, nausea and vomiting Narrative: This 71-year-old male came emergency department because of nausea and vomiting and abdominal pain. He states that he has been ill for about 5 days. He has had nausea and vomiting of food but he says he can take milk and milk shakes without too much difficulty. He presented to the emergency department 2 days ago with similar symptoms and had diagnostic evaluation and was discharged. He did receive some intravenous fluids while he was here. He presented again with similar symptoms and had repeat CT scan of labs. The CT scan shows a possible duodenal ulcer as well as sigmoid diverticulitis. He says he has had pain across the mid abdomen without radiation. He says he had an ulcer when he was 11 or 12 years old. Knowing that he has been around has been ill. He lives with his girlfriend. He did have the eye episode of nephrolithiasis about 9 months ago and says he passed the stone although he says he never really saw the stone but the pain went away. He has never had any colonoscopies or EGD. About 5 weeks ago he was treated for a stroke which caused some weakness in his right arm and right leg and he says he is taking blood thinners and aspirin that off he does not know the name of his medicine. He was smoking more than a pack cigarettes a day for last 50 years but recently has cut down and now is smoking less than 1/2 pack cigarettes per day. He does not drink alcohol. He has had no difficulty with his urine. He says that he has had coronavirus vaccine as well as a flu vaccine this year. In terms of his stroke he thinks he is about 90% improved with the weakness of his right arm leg. He has had some persistent weakness in his right small finger. He has had no diarrhea. [facility] gastroenterology was consulted and they recommended treating for the peptic ulcer and diverticulitis and recommended endoscopy when he is stable in a month or 2. Review of Systems Constitutional Constitutional: Denies chills, Denies fever(s), Denies frequent falls, Denies headache(s), Denies lethargy, Denies malaise, Denies poor appetite and Denies weakness Eyes Eyes: Denies loss of vision ENT Ears, Nose, Mouth, and Throat: Denies headache(s) and Denies odynophagia Cardiovascular Cardiovascular: Denies chest pain, Denies chest pain with activity, Denies irregular heart rhythm, Denies palpitations and Denies dyspnea Respiratory Respiratory: Denies cough, Denies hemoptysis and Denies dyspnea Gastrointestinal Gastrointestinal: Reports abdominal pain, Denies diarrhea, Denies loose stools, Reports nausea, Denies odynophagia, Reports vomiting and Denies hematemesis Genitourinary Genitourinary: Denies hematuria, Denies difficulty urinating, Denies dysuria, Denies urinary incontinence and Denies urinary urgency Musculoskeletal Musculoskeletal: Denies tingling Neurologic Neurologic: Denies frequent falls, Denies headache(s), Denies loss of vision, Denies memory loss, Denies other visual disturbances, Denies sensory deficit, Denies tingling and Denies weakness Psychiatric Psychiatric: Denies memory loss Endocrine Endocrine: Denies palpitations PFSH All Active Problems (Updated 12/28/21 @ 21:18 by Kirk Prather MD) Stroke (Chronic) Nausea & vomiting (Acute) Diverticulitis (Chronic) Duodenal ulcer (Acute) Ureterolithiasis (Acute) Medical History AAA (abdominal aortic aneurysm) without rupture COPD (chronic obstructive pulmonary disease) Knee pain [facility]: Possible thrombus Surgical History H/O cataract extraction Social History Smoking/Tobacco Use Status: Current every day Tobacco Type: cigarettes Years smoked: 50 Smoking risk assessment performed?: Yes Alcohol Intake: never Drug use: Never Substance use type: does not use Do you feel safe at home: Yes Do you feel safe in your relationship?: Yes Meds Allergies and Home Medications Allergies Allergy/AdvReac Type Severity Reaction Status Date / Time No Known Allergies Allergy Unverified 12/28/21 14:45 Home Medications Medication Instructions Recorded Confirmed Type acetaminophen 500 mg tablet 500 mg PO Q4H PRN 04/09/21 12/28/21 History budesonide-formoterol HFA 80 2 puff INHALATION BID 04/09/21 12/28/21 History mcg-4.5 mcg/actuation aerosol inhaler (Symbicort) ipratropium 20 mcg-albuterol 100 1 puff INHALATION TID 04/09/21 12/28/21 History mcg/actuation mist for inhalation amlodipine 5 mg tablet 5 mg PO DAILY 12/26/21 12/28/21 History Exam Const General: cooperative, healthy appearing, comfortable, no acute distress, not ill appearing, does not appear intoxicated and not lethargic HENMT Ears: hearing grossly impaired Throat: posterior oropharynx normal Neck Neck: normal visual inspection and no lymphadenopathy Carotids: no bruits Resp Auscultation: clear to auscultation bilaterally, no rales and no rhonchi Cardio Rate: regular rate Rhythm: regular rhythm Heart Sounds: S1 normal, S2 normal and no murmurs GI Inspection: normal to inspection Palpation: soft, no hepatosplenomegaly and tender Other: Slightly tender mid abdomen without rebound tenderness. Slight suprapubic tend erness. Neuro Coordination: [id number] test abnormal Other: He has some difficulty with rapid alternating movements of his right fingers and [id number] testing is a bit more abnormal in the right compared to the left. Strength of lower extremities is normal hamstrings bilaterally. Results Labs Result diagrams: 12/28/21 14:45 12/28/21 14:45 Labs: Laboratory Results - last 24 hr 12/28/21 12/28/21 12/28/21 14:45 14:45 14:45 WBC 14.19 H RBC 5.50 Hgb 15.7 Hct 46.3 MCV 84.2 MCH 28.5 MCHC 33.9 RDW 13.3 Plt Count 251 MPV 9.4 Immature Gran % 1.1 Neutrophils % 74.4 Lymphocytes % 15.0 Monocytes % 8.5 Eosinophils % 0.6 Basophils % 0.4 Nucleated RBC % 0 Absolute Neutrophils 10.56 H Absolute Lymphocytes 2.13 Absolute Monocytes 1.21 H Absolute Eosinophils 0.09 Absolute Basophils 0.06 VBG Lactate Sodium 136 Potassium 3.2 L Chloride 98 Carbon Dioxide 28.6 Anion Gap 9.4 BUN 24 H Creatinine 1.0 Estimated GFR/1.73 m2 >= 60.00 Glucose 93 Calcium 9.2 Magnesium 2.1 Total Bilirubin 0.7 AST 12 L ALT 21 Alkaline Phosphatase 88 C-Reactive Protein 0.45 H Total Protein 7.3 Albumin 3.7 Lipase 58 Urine Color Urine Clarity Urine pH Ur Specific [place] Urine Protein Urine Ketones Urine Blood Urine Nitrite Urine Bilirubin Urine Urobilinogen Ur Leukocyte Esterase Urine Glucose 12/28/21 12/28/21 15:38 16:06 WBC RBC Hgb Hct MCV MCH MCHC RDW Plt Count MPV Immature Gran % Neutrophils % Lymphocytes % Monocytes % Eosinophils % Basophils % Nucleated RBC % Absolute Neutrophils Absolute Lymphocytes Absolute Monocytes Absolute Eosinophils Absolute Basophils VBG Lactate 0.9 Sodium Potassium Chloride Carbon Dioxide Anion Gap BUN Creatinine Estimated GFR/1.73 m2 Glucose Calcium Magnesium Total Bilirubin AST ALT Alkaline Phosphatase C-Reactive Protein Total Protein Albumin Lipase Urine Color Yellow Urine Clarity Clear Urine pH 6.0 Ur Specific [place] 1.025 Urine Protein Negative Urine Ketones Negative Urine Blood Negative Urine Nitrite Negative Urine Bilirubin Negative Urine Urobilinogen 0.2 Ur Leukocyte Esterase Negative Urine Glucose Negative Last Vital Signs Temp 36.4 C L 12/28/21 14:42 Pulse 80 12/28/21 19:08 Resp 16 12/28/21 19:08 BP 147/95 H 12/28/21 19:08 Pulse Ox 95 12/28/21 19:08
[2021-12-28 21:25] LABS: Source Nasal/Nares
--- NOTE | 2021-12-28 21:38 | NUR.NOTE ---
Nursing Note: Nursing Note talked with Pam via phone to confirm home medications. She reports he is not on a blood thinner, but does take 81 mg ASA daily with his bp med, both of which he has not taken since he has been sick on Wednesday. Best number to reach her for more questions is via landline [phone]:
[2021-12-28 22:02] LABS: COVID-19 PCR Negative (Negative)
[2021-12-28] MEDS: POTASSIUM CHLORIDE/0.45% NACL 1,000 ML 100 MEQ IV (23:08)
[2021-12-28] MEDS: Sucralfate 1 GM TAB PO (23:08)
[2021-12-29 03:00] VITALS: BP 146/91; PULSE 82; RESP 18; TEMP 37.2; O2SAT 94
[2021-12-29] MEDS: metroNIDAZOLE 500 MG/100 ML BAG 100 MG IVPB ×2 (06:10→13:09)
[2021-12-29] MEDS: cefTRIAXone 2 GM/50 ML BAG IVPB (07:35)
[2021-12-29] MEDS: Normal Saline Flush 10 ML SYR IVP ×3 (07:35→13:09)
[2021-12-29] MEDS: Sucralfate 1 GM TAB PO ×3 (07:42→15:43)
[2021-12-29] MEDS: Nicotine 14 MG/24 HR PATCH TD (07:42)
[2021-12-29] MEDS: Pantoprazole 40 MG TABCR PO (07:42)
[2021-12-29] MEDS: amLODIPine 5 MG TAB PO (07:42)
[2021-12-29 07:45] LABS: Abs Immature Grans 0.09 10^3/uL (0.0-0.06); Absolute Basophil Count 0.06 10^3/uL (0.0-0.2); Absolute Eosinophil Count 0.09 10^3/uL (0.0-0.7); Absolute Lymphocyte Count 1.39 10^3/uL (1.2-3.4); Absolute Monocyte Count 0.67 10^3/uL (0.1-0.8); Absolute Neutrophil Count 5.33 10^3/uL (1.2-6.7); Basophils % 0.8; Eosinophils % 1.2; HCT 40.7 % (40.0-50.0); HGB 13.5 g/dL (13.5-17.5); Immature Grans % 1.2; Lymphocytes % 18.2; MCH 28.7 pg (27.0-33.0); MCHC 33.2 % (32.0-36.0); MCV 86.4 fL (80-95); MPV 9.2 fL (8.0-11.0); Monocytes % 8.8; Neutrophils % 69.8; Nucleated RBC 0 %; Platelet Count 188 10^3/uL (130-400); RBC 4.71 10^6/uL (4.36-5.78); RDW 13.3 % (11.8-14.1); RDW-SD 42.1 fL; WBC 7.63 10^3/uL (4.4-10.8)
[2021-12-29 07:49] VITALS: BP 180/90; PULSE 74; RESP 18; TEMP 36.7; O2SAT 96
[2021-12-29 08:16] LABS: ALT 14 U/L (16-63); AST 12 U/L (15-37); Alkaline Phosphatase 75 U/L (46-116); Anion Gap 6.9 mmol/L (3-11); BUN 15 mg/dL (7-18); Bilirubin, Total 0.6 mg/dL (0.2-1.0); CO2 28.1 mmol/L (21.0-32.0); CREATININE 0.8 mg/dL (0.70-1.30); Calcium 8.4 mg/dL (8.5-10.1); Chloride 102 mmol/L (98-107); Glucose 112 mg/dL (74-106); Potassium 3.2 mmol/L (3.5-5.1); Sodium 137 mmol/L (136-145); Total Protein 6.2 g/dL (6.4-8.2)
--- NOTE | 2021-12-29 09:03 | UCONE_ITS ---
Date of service: 12/29/21 Time of Service: 09:45 Assessment and Plan Assessment and plan (1) Ureterolithiasis: Status: Acute Assessment and plan: Even though the patient reports that he passed his previous ureteral stone, it makes more sense that his current distal ureteral stone is the same stone seen previously in the proximal ureter. He certainly has no need for acute or surgical treatments seeing how he is asymptomatic and has no sign of infection. I am still not certain that he would be a surgical candidate at our facility. I am attempting to obtain both his [place] records and his [facility] records for his most recent care. I have reached out to our anesthesia colleagues so that they can review his chart as well and see if he would be a surgical candidate locally or if he would be better served having his procedure at a larger facility. History of Present Illness History of Present Illness Chief Complaint: ureteral stone Narrative: This is a 71-year-old gentleman who was initially seen when he developed a renal colic due to a left proximal ureteral stone in April 2021. He had no signs of sepsis but he had persistent symptoms. We recommended ureteroscopic stone manipulation, but he was not felt to be a candidate for the procedure here at our facility due to vascular concerns. He had a history of aneurysms. When we had reviewed his previous medical records from the [place], it appeared that he was supposed to be on low-dose aspirin and a statin. He was also supposed to have follow-up. Since none of these recommendations had been followed, we recommended that his urologic care be done down at the [place]. The patient tells me that he passed his stone and never required surgery. He has presented to our facility about a month ago with a stroke. He was transferred to the [facility] for further care. At this point in time, I do not have access to either his [place] medical records or his [facility] medical records. He is now admitted with upper abdominal discomfort and decreased appetite. His working diagnosis is a duodenal ulcer. Upper endoscopy has been recommended, but he is not sure if it will be done here at our facility or down at the [place]. He is not having any flank pain or voiding symptoms. On his admitting CT scan, a nonobstructing left distal ureteral stone was identified. I have been asked to see him regarding his stone. The patient is not aware of any stone analysis testing that was performed on his passed stone. Review of Systems Constitutional Comments: Weight loss of 20 pounds in last 6 months (intentional). No fevers or chills No vision change or dysphasia No diabetes or thyroid dysfunction Chronic shortness of breath and smoker's cough. No hemoptysis No chest pain or palpitations No hepatitis or jaundice Stroke @ 1 month ago with resultant decreased right sided strength/mobility. No seizures or peripheral neuropathy No bleeding disorders or anemia Due for left knee arthroscopy at [place] in next week or 2. No gout PFSH All Active Problems (Updated 12/28/21 @ 21:18 by Kirk Prather MD) Stroke (Chronic) Nausea & vomiting (Acute) Diverticulitis (Chronic) Duodenal ulcer (Acute) Ureterolithiasis (Acute) Medical History AAA (abdominal aortic aneurysm) without rupture COPD (chronic obstructive pulmonary disease) Knee pain [facility]: Possible [facility] Surgical History H/O cataract extraction Social History Smoking/Tobacco Use Status: Current every day Tobacco Type: cigarettes Years smoked: 50 Smoking risk assessment performed?: Yes Alcohol Intake: never Drug use: Never Substance use type: does not use Do you feel safe at home: Yes Do you feel safe in your relationship?: Yes Exam Const Other: He is seen sitting up in a chair. He does not appear septic or toxic. He appears quite comfortable. His vital signs are documented elsewhere His chest wall motion is normal. He is not short of breath at rest. His abdomen is soft with no guarding or rebound tenderness He is awake and alert. I reviewed his CT scan on the PACS system. I also reviewed his initial CT scan from 6 months ago. Six months ago, he had a left proximal ureteral stone with no additional stones in the kidney. On his admitting CT scan, there are still no stones in the kidney. There is a nonobstructing stone in the left distal ureter. 2 recent urinalysis showed no sign of infection. Results Last Vital Signs Temp 36.7 C 12/29/21 07:49 Pulse 74 12/29/21 07:49 Resp 18 12/29/21 07:49 BP 180/90 H 12/29/21 07:49 Pulse Ox 96 12/29/21 07:49 Labs Result diagrams: 12/29/21 07:10 12/29/21 07:10 Labs: Laboratory Results - last 24 hr 12/28/21 12/28/21 12/28/21 14:45 14:45 14:45 WBC 14.19 H RBC 5.50 Hgb 15.7 Hct 46.3 MCV 84.2 MCH 28.5 MCHC 33.9 RDW 13.3 Plt Count 251 MPV 9.4 Immature Gran % 1.1 Neutrophils % 74.4 Lymphocytes % 15.0 Monocytes % 8.5 Eosinophils % 0.6 Basophils % 0.4 Nucleated RBC % 0 Absolute Neutrophils 10.56 H Absolute Lymphocytes 2.13 Absolute Monocytes 1.21 H Absolute Eosinophils 0.09 Absolute Basophils 0.06 VBG Lactate Sodium 136 Potassium 3.2 L Chloride 98 Carbon Dioxide 28.6 Anion Gap 9.4 BUN 24 H Creatinine 1.0 Estimated GFR/1.73 m2 >= 60.00 Glucose 93 Calcium 9.2 Magnesium 2.1 Total Bilirubin 0.7 AST 12 L ALT 21 Alkaline Phosphatase 88 C-Reactive Protein 0.45 H Total Protein 7.3 Albumin 3.7 Lipase 58 Urine Color Urine Clarity Urine pH Ur Specific [place] Urine Protein Urine Ketones Urine Blood Urine Nitrite Urine Bilirubin Urine Urobilinogen Ur Leukocyte Esterase Urine Glucose COVID-19 Source SARS-CoV-2 (PCR) 12/28/21 12/28/21 12/28/21 15:38 16:06 21:15 WBC RBC Hgb Hct MCV MCH MCHC RDW Plt Count MPV Immature Gran % Neutrophils % Lymphocytes % Monocytes % Eosinophils % Basophils % Nucleated RBC % Absolute Neutrophils Absolute Lymphocytes Absolute Monocytes Absolute Eosinophils Absolute Basophils VBG Lactate 0.9 Sodium Potassium Chloride Carbon Dioxide Anion Gap BUN Creatinine Estimated GFR/1.73 m2 Glucose Calcium Magnesium Total Bilirubin AST ALT Alkaline Phosphatase C-Reactive Protein Total Protein Albumin Lipase Urine Color Yellow Urine Clarity Clear Urine pH 6.0 Ur Specific [place] 1.025 Urine Protein Negative Urine Ketones Negative Urine Blood Negative Urine Nitrite Negative Urine Bilirubin Negative Urine Urobilinogen 0.2 Ur Leukocyte Esterase Negative Urine Glucose Negative COVID-19 Source Nasal/Nares SARS-CoV-2 (PCR) Negative 12/29/21 12/29/21 07:10 07:10 WBC 7.63 D RBC 4.71 Hgb 13.5 D Hct 40.7 MCV 86.4 MCH 28.7 MCHC 33.2 RDW 13.3 Plt Count 188 MPV 9.2 Immature Gran % 1.2 Neutrophils % 69.8 Lymphocytes % 18.2 Monocytes % 8.8 Eosinophils % 1.2 Basophils % 0.8 Nucleated RBC % 0 Absolute Neutrophils 5.33 Absolute Lymphocytes 1.39 Absolute Monocytes 0.67 Absolute Eosinophils 0.09 Absolute Basophils 0.06 VBG Lactate Sodium 137 Potassium 3.2 L Chloride 102 Carbon Dioxide 28.1 Anion Gap 6.9 BUN 15 D Creatinine 0.8 Estimated GFR/1.73 m2 >= 60.00 Glucose 112 H Calcium 8.4 L Magnesium Total Bilirubin 0.6 AST 12 L ALT 14 L Alkaline Phosphatase 75 C-Reactive Protein Total Protein 6.2 L Albumin 3.0 L Lipase Urine Color Urine Clarity Urine pH Ur Specific [place] Urine Protein Urine Ketones Urine Blood Urine Nitrite Urine Bilirubin Urine Urobilinogen Ur Leukocyte Esterase Urine Glucose COVID-19 Source SARS-CoV-2 (PCR)
--- NOTE | 2021-12-29 10:29 | W.PM.PROGNOT ---
Date of Service Date of service: 12/29/21 Time of Service: 10:29 Assessment and Plan Assessment and plan (1) Nausea & vomiting: Status: Acute Assessment and plan: Continue IV fluids and antiemetics as needed. Clear fluids. (2) Diverticulitis: Status: Chronic Assessment and plan: day 2 ceftriaxone and metronidazole. 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 He will be given clear liquids. He will likely need an EGD to evaluate the duodenal ulcer. It does not need to be done acutely at this time. (4) Ureterolithiasis: Status: Acute Assessment and plan: This ureterolithiasis is not causing any hydronephrosis at the present time there is no evidence of urinary tract infection. Seen by urology 6 months ago. It appears the stone is still present. He should have a repeat urology visit outpatient (5) Stroke: Status: Chronic Assessment and plan: states he take asa only. stable. (6) Discharge planning issues: Status: Acute Assessment and plan: plan to discharge to home with no services once medically stable. discussed with DR Lynch Subjective Subjective Patient reports: tolerating liquids well, no bowel movement and afebrile Exam Const General: cooperative, healthy appearing, comfortable and no acute distress HENMT Ears: hearing grossly impaired Throat: posterior oropharynx normal Neck Neck: normal visual inspection Resp Auscultation: clear to auscultation bilaterally, no rales and no rhonchi Cardio Rate: regular rate Rhythm: regular rhythm Heart Sounds: no murmurs GI Inspection: normal to inspection and distended Palpation: soft and tender in the epigastrum Objective Last Vital Signs Temp 36.7 C 12/29/21 07:49 Pulse 74 12/29/21 07:49 Resp 18 12/29/21 07:49 BP 180/90 H 12/29/21 07:49 Pulse Ox 96 12/29/21 07:49 Laboratory Results - last 24 hr 12/28/21 12/28/21 12/28/21 14:45 14:45 14:45 WBC 14.19 H RBC 5.50 Hgb 15.7 Hct 46.3 MCV 84.2 MCH 28.5 MCHC 33.9 RDW 13.3 Plt Count 251 MPV 9.4 Immature Gran % 1.1 Neutrophils % 74.4 Lymphocytes % 15.0 Monocytes % 8.5 Eosinophils % 0.6 Basophils % 0.4 Nucleated RBC % 0 Absolute Neutrophils 10.56 H Absolute Lymphocytes 2.13 Absolute Monocytes 1.21 H Absolute Eosinophils 0.09 Absolute Basophils 0.06 VBG Lactate Sodium 136 Potassium 3.2 L Chloride 98 Carbon Dioxide 28.6 Anion Gap 9.4 BUN 24 H Creatinine 1.0 Estimated GFR/1.73 m2 >= 60.00 Glucose 93 Calcium 9.2 Magnesium 2.1 Total Bilirubin 0.7 AST 12 L ALT 21 Alkaline Phosphatase 88 C-Reactive Protein 0.45 H Total Protein 7.3 Albumin 3.7 Lipase 58 Urine Color Urine Clarity Urine pH Ur Specific [place] Urine Protein Urine Ketones Urine Blood Urine Nitrite Urine Bilirubin Urine Urobilinogen Ur Leukocyte Esterase Urine Glucose COVID-19 Source SARS-CoV-2 (PCR) 12/28/21 12/28/21 12/28/21 15:38 16:06 21:15 WBC RBC Hgb Hct MCV MCH MCHC RDW Plt Count MPV Immature Gran % Neutrophils % Lymphocytes % Monocytes % Eosinophils % Basophils % Nucleated RBC % Absolute Neutrophils Absolute Lymphocytes Absolute Monocytes Absolute Eosinophils Absolute Basophils VBG Lactate 0.9 Sodium Potassium Chloride Carbon Dioxide Anion Gap BUN Creatinine Estimated GFR/1.73 m2 Glucose Calcium Magnesium Total Bilirubin AST ALT Alkaline Phosphatase C-Reactive Protein Total Protein Albumin Lipase Urine Color Yellow Urine Clarity Clear Urine pH 6.0 Ur Specific [place] 1.025 Urine Protein Negative Urine Ketones Negative Urine Blood Negative Urine Nitrite Negative Urine Bilirubin Negative Urine Urobilinogen 0.2 Ur Leukocyte Esterase Negative Urine Glucose Negative COVID-19 Source Nasal/Nares SARS-CoV-2 (PCR) Negative 12/29/21 12/29/21 07:10 07:10 WBC 7.63 D RBC 4.71 Hgb 13.5 D Hct 40.7 MCV 86.4 MCH 28.7 MCHC 33.2 RDW 13.3 Plt Count 188 MPV 9.2 Immature Gran % 1.2 Neutrophils % 69.8 Lymphocytes % 18.2 Monocytes % 8.8 Eosinophils % 1.2 Basophils % 0.8 Nucleated RBC % 0 Absolute Neutrophils 5.33 Absolute Lymphocytes 1.39 Absolute Monocytes 0.67 Absolute Eosinophils 0.09 Absolute Basophils 0.06 VBG Lactate Sodium 137 Potassium 3.2 L Chloride 102 Carbon Dioxide 28.1 Anion Gap 6.9 BUN 15 D Creatinine 0.8 Estimated GFR/1.73 m2 >= 60.00 Glucose 112 H Calcium 8.4 L Magnesium Total Bilirubin 0.6 AST 12 L ALT 14 L Alkaline Phosphatase 75 C-Reactive Protein Total Protein 6.2 L Albumin 3.0 L Lipase Urine Color Urine Clarity Urine pH Ur Specific [place] Urine Protein Urine Ketones Urine Blood Urine Nitrite Urine Bilirubin Urine Urobilinogen Ur Leukocyte Esterase Urine Glucose COVID-19 Source SARS-CoV-2 (PCR)
[2021-12-29] MEDS: Bisacodyl 10 MG SUPP PR (10:34)
[2021-12-29] MEDS: Polyethylene Glycol 3350 17 GM PACKET PO (10:34)
[2021-12-29] MEDS: POTASSIUM CHLORIDE/0.45% NACL 1,000 ML 100 MEQ IV (11:11)
[2021-12-29 12:57] VITALS: BP 133/74; PULSE 81; RESP 18; TEMP 36.4; O2SAT 95
[2021-12-29] MEDS: Ipratropium/Albuterol 4 GM 120 PUFF INH IH (13:37)
[2021-12-29 15:05] VITALS: BP 136/81; PULSE 82; RESP 19; TEMP 37.2; O2SAT 95
--- NOTE | 2021-12-29 15:34 | PDOC.CMIN ---
- If Service Date Differs Date of service: 12/29/21 Time of Service: 15:34 Care Management Initial Assess REASON FOR HOSPITALIZATION:: Diverticulitis PAST MEDICAL HISTORY/PAST SURGICAL HISTORY:: AAA (abdominal aortic aneurysm) without rupture. COPD (chronic obstructive pulmonary disease). Knee pain. Thrombus. [facility]: Possible thrombus. Current everyday smoker. Surgical History . H/O cataract extraction PREVIOUS FUNCTIONAL STATUS/SOCIAL/FAMILY SUPPORTS:: Evens is independent at baseline in the community. He resides in [place] with his friend, Pam. CURRENT FUNCTIONAL STATUS:: Evens is up, ambulating independently in his room. He is struggling to eat and continues to be monitored closely at this time, continues to follow. Has patient been provided with info about the portal/API?: No Did the patient sign up for the portal?: No CODE STATUS:: Full Code INSURANCE COVERAGE / FINANCIAL ISSUES:: [facility] CURRENT HOME/COMMUNITY SERVICES/EQUIPMENT:: None, currently. PRIMARY CARE PHYSICIAN:: [facility] POTENTIAL DISCHARGE NEEDS:: [facility] with [facility]. PATIENT/FAMILY EDUCATION NEEDS:: Review discharge instructions, discuss Ask Me [employer]. ANTICIPATED BARRIERS TO DISCHARGE:: None identified. TRANSPORTATION:: Via private vehicle with family or a friend. PLAN:: Evens continues to be closely monitored and treated. Anticipate he will [facility] the [facility], scheduled outpatient colonoscopy, OP EGD and urology follow up.
--- NOTE | 2021-12-29 16:20 | DSE_ITS ---
Date of service: 12/29/21 Time of Service: 16:20 DS: Diagnosis Discharge Diagnosis (1) Nausea & vomiting: Status: Acute (2) Diverticulitis: Status: Chronic (3) Duodenal ulcer: Status: Acute (4) Ureterolithiasis: Status: Acute (5) Stroke: Status: Chronic Discharge Plan Disposition Patient Disposition: HOME Condition: Improving Discharge Details Reason For Visit: Diverticulitis Admit Date/Time: 12/28/21 20:26 Admit Provider: Kirk Prather Attending Provider: Kirk Prather Primary Care Provider: [facility] Course Hospital Course: This 71-year-old male came emergency department because of nausea and vomiting and abdominal pain.? He states that he has been ill for about 5 days.? He has had nausea and vomiting of food but he says he can take milk and milk shakes without too much difficulty.? He presented to the emergency department 2 days prior with similar symptoms and had diagnostic evaluation and was discharged.? He did receive some intravenous fluids while he was here.? He presented again with similar symptoms and had repeat CT scan of labs.? The CT scan shows a possible duodenal ulcer as well as sigmoid diverticulitis.? He says he has had pain across the mid abdomen without radiation.? He says he had an ulcer when he was 11 or 12 years old.? He did have the eye episode of nephrolithiasis about 9 months ago and says he passed the stone although he says he never really saw the stone but the pain went away.? He has never had any colonoscopies or EGD.? About 5 weeks ago he was treated for a stroke which caused some weakness in his right arm and right leg He was smoking more than a pack cigarettes a day for last 50 years but recently has cut down and now is smoking less than 1/2 pack cigarettes per day.? He has had no diarrhea.? [facility] gastroenterology was consulted and they recommended treating for the peptic ulcer and diverticulitis and recommended endoscopy when he is stable in a month or 2. He received IV protonix and cipro/flagyl and case was discussed with hospitalist services for observation stay for IV fluids and antiemetics. Overnight he remained hemodynamically stable. He received bowel management with moderate to large results. He is feeling much better and diet is advanced. He is requesting discharge to home. He will be discharged on augmentin for diverticulitis and carafate and protonix for suspected duodenal ulcer. He was also recommended to maintain bowel management. discharge discussed with Dr Lynch. Home Meds and New Rx's Prescriptions: New amoxicillin-pot clavulanate 875-125 mg tablet 1 tab PO BID Qty: 10 0RF polyethylene glycol 3350 17 gram Powder In Packet 17 g PO DAILY Qty: 30 0RF sucralfate [Carafate] 1 gram tablet 1 g PO QACHS Qty: 120 0RF pantoprazole 40 mg tablet,delayed release (DR/EC) 40 mg PO BID Qty: 60 0RF Continued acetaminophen 500 mg Tablet 500 mg PO Q4H PRN0RF budesonide-formoterol [Symbicort] 80-4.5 mcg/actuation Hfa Aerosol Inhaler 2 puff INHALATION BID 0RF ipratropium-albuterol 20-100 mcg/actuation Mist 1 puff INHALATION TID 0RF aspirin 81 mg Tablet 81 mg PO DAILY 0RF amlodipine 5 mg tablet 5 mg PO DAILY 0RF Label Comments: TAKE 1 TABLET BY MOUTH DAILY Discharge Instructions Instructions: How to Stop Smoking (GEN), Diverticulitis (DC), Constipation (D C), Cigarette Smoking and Your Health (GEN), Duodenitis (DC) Stand Alone Forms: Nursing Discharge Form [facility]: [facility] [Primary [facility] Provider] - (Please call for follow up in 1 week you should have upper and lower endoscopy outpatient in 2-3 month) Activity:: Activity as Tolerated Equipment/Supplies:: No Equipment Needed Diet:: As Tolerated Discharge Orders Discharge Orders: Discharge Order (Routine); Ordered 12/29/21 Ordered By: Manda Pardo Discharge Data Discharge Date/Time-TO BE ENTERED AT DEPARTURE: 12/29/21 17:11 DS: Summary Time Spent with Patient providing and/or coordinating discharge services: Less than 30 minutes Status at Discharge Functional status at discharge: independent ambulation Overall status at discharge: patient is back to baseline Mental Status: mental status grossly normal Speech and Movement: speech and movement normal Mood: congruent mood Affect: normal affect Exam Const General: cooperative and acute distress Eyes Sclera: sclerae normal Resp Effort & Inspection: normal respiratory effort Cardio Rate: regular rate Rhythm: regular rhythm GI Inspection: normal to inspection Palpation: soft and tender in the epigastrum Skin General skin exam: no rashes or lesions noted Neuro General: patient alert and patient oriented x3 Extrem General: normal to inspection Psych Mental Status: mental status grossly normal Speech and Movement: speech and movement normal Mood: congruent mood Affect: normal affect DS: Data Vitals/I&O Vitals and I&O: Vital Signs Temperature 37.2 C 12/29/21 15:05 Temperature Source Tympanic 12/29/21 15:05 Pulse 82 12/29/21 15:05 Pulse Rhythm Regular 12/29/21 08:00 Respiratory Rate 19 12/29/21 15:05 Respiratory Effort Non-Labored 12/29/21 08:00 Respiratory Depth Normal 12/29/21 08:00 Respiratory Pattern Normal 12/29/21 08:00 Blood Pressure 136/81 12/29/21 15:05 Blood Pressure Mean 104 12/28/21 18:30 Blood Pressure Position Supine 12/28/21 14:42 Pulse Oximetry 95 12/29/21 15:05 Oxygen Delivery Method Room Air 12/29/21 15:05 Oxygen Flow Rate 0 12/29/21 15:05 Pain Level 0 12/29/21 12:57 Intake & Output 12/28/21 12/29/21 12/29/21 23:59 11:59 23:59 Intake Total 1530 / 1530 1230 / 2091.667 861.667 / 2091.667 Output Total 675 / 675 Balance 855 / 855 1230 / 2091.667 861.667 / 2091.667 Weight 81.647 kg Intake: IV 1410 / 1410 1150 / 1331.667 181.667 / 1331.667 Oral 120 / 120 80 / 760 680 / 760 Output: Urine 675 / 675 Other: Urine Color Yellow Urine Appearance Clear Cloudy Urine Odor Normal Comment Pt voided in toilet unknown amount. Stool Size Moderate Stool Characteristics Formed Voiding Methods Toilet Data Completed and Pending Labs on day of discharge: Labs from last 24 hours 12/29/21 12/29/21 12/28/21 07:10 07:10 21:15 WBC 7.63 D RBC 4.71 Hgb 13.5 D Hct 40.7 MCV 86.4 MCH 28.7 MCHC 33.2 RDW 13.3 Plt Count 188 MPV 9.2 Immature Gran % 1.2 Neutrophils % 69.8 Lymphocytes % 18.2 Monocytes % 8.8 Eosinophils % 1.2 Basophils % 0.8 Nucleated RBC % 0 Absolute Neutrophils 5.33 Absolute Lymphocytes 1.39 Absolute Monocytes 0.67 Absolute Eosinophils 0.09 Absolute Basophils 0.06 Sodium 137 Potassium 3.2 L Chloride 102 Carbon Dioxide 28.1 Anion Gap 6.9 BUN 15 D Creatinine 0.8 Estimated GFR/1.73 m2 >= 60.00 Glucose 112 H Calcium 8.4 L Total Bilirubin 0.6 AST 12 L ALT 14 L Alkaline Phosphatase 75 Total Protein 6.2 L Albumin 3.0 L COVID-19 Source Nasal/Nares SARS-CoV-2 (PCR) Negative PFSH All Active Problems (Updated 12/29/21 @ 10:34 by Manda Pardo NP) Discharge planning issues (Acute) Stroke (Chronic) Nausea & vomiting (Acute) Diverticulitis (Chronic) Duodenal ulcer (Acute) Ureterolithiasis (Acute) Medical History AAA (abdominal aortic aneurysm) without rupture COPD (chronic obstructive pulmonary disease) Knee pain [facility]rombus [facility]: Possible thrombus Surgical History H/O cataract extraction Social History Smoking/Tobacco Use Status: Current every day Tobacco Type: cigarettes Years smoked: 50 Smoking risk assessment performed?: Yes Alcohol Intake: never Drug use: Never Substance use type: does not use Do you feel safe at home: Yes Do you feel safe in your relationship?: Yes
== END 2021-12-29 17:11 | disposition home or self-care (01) ==
LOC: ER 19:54 → MS 21:13
PROVIDERS: Physician Assistant; Admitting Provider Family Medicine; Emergency Provider Nurse Practitioner Acute Care; Visit Provider Family Medicine
DX: R11.2 Nausea with vomiting, unspecified (principal); K26.9 Duodenal ulcer, unspecified as acute or chronic, without hemorrhage or perforation; K57.32 Diverticulitis of large intestine without perforation or abscess without bleeding; N20.1 Calculus of ureter; Z86.73 Personal history of transient ischemic attack (TIA), and cerebral infarction without residual deficits; Z79.01 Long term (current) use of anticoagulants; Z79.82 Long term (current) use of aspirin; J44.9 Chronic obstructive pulmonary disease, unspecified; F17.210 Nicotine dependence, cigarettes, uncomplicated; Z20.822 Contact with and (suspected) exposure to COVID-19
CPT/HCPCS: 80053; 83690; 87635; 93005; 96361; 96365; 96367; 96375; 99285; 74177; 81003; 83605; 83735; 85025; 86140; 93010; 99217; 99220; G0378; J0131; J0744; J1885; J2270; J2405; J3490

== ENCOUNTER 2023-10-02 14:44 | Emergency (ER) | payer OTHER, SELFPAY ==
[2023-10-02] VITALS (15 sets, daily range): BP systolic 124–193; BP diastolic 63–103; PULSE 81–100; RESP 18; TEMP 36.5–37; O2SAT 94–98
--- NOTE | 2023-10-02 15:14 | W.ED.GENAD ---
Discharge Plan Disposition Patient Disposition: Home Discharge Details Clinical Impression: Left sided abdominal pain, Constipation Primary Care Provider: Unknown,Unknown ED Provider: Yaron Mohan Home Meds and New Rx's Prescriptions: New magnesium citrate Solution 150 ml PO DAILY Qty: 296 0RF docusate sodium [Colace] 100 mg capsule 100 mg PO BID Qty: 30 0RF No Action acetaminophen 500 mg Tablet 500 mg PO Q4H PRN budesonide-formoterol [Symbicort] 80-4.5 mcg/actuation Hfa Aerosol Inhaler 2 puff INHALATION BID ipratropium-albuterol 20-100 mcg/actuation Mist 1 puff INHALATION TID aspirin 81 mg Tablet 81 mg PO DAILY amlodipine 5 mg tablet 5 mg PO DAILY Patient Comments: TAKE 1 TABLET BY MOUTH DAILY polyethylene glycol 3350 17 gram Powder In Packet 17 g PO DAILY Qty: 30 0RF pantoprazole 40 mg tablet,delayed release (DR/EC) 40 mg PO BID Qty: 60 0RF Discharge Instructions Instructions: Constipation (ED), Abdominal Pain (ED) Additional Instructions: At this time there is no evidence of diverticulitis, new kidney stone, infection, or other abnormality. We are concerned that there may be a component of constipation that could be causing your pain. Please take the Colace and magnesium citrate as directed. These can be purchased [id number], but you have also been given a prescription for home. When you take the magnesium citrate please take it with 6 to 10 cups of water or flavored water. Please follow-up closely with your family doctor and vascular surgeons for continued monitoring of your aneurysms that appear to be relatively stable. If you notice any worsening of your symptoms, or any new symptoms such as vomiting, diarrhea, fever, chills, shortness of breath, chest pain, numbness, weakness, or fainting , please return immediately to the emergency department for reevaluation. Please follow up with your primary care provider as soon as possible for reassessment and reevaluation. As always, it was a pleasure participating in your medical care today. Medical Decision Making 73-year-old male with a past medical history of previous stroke a year and a half ago currently on a baby aspirin, COPD, previous kidney stone, exposure to agent orange, gastric ulcer, who presents today for evaluation of abdominal pain. Patient states that for the last month he has had difficulty eating, and a diminishment of his desire to eat. He has lost 22 pounds per family. He has no history of colon cancer in his family. He states that he will vomit about 3 times per week. He has generalized on and off abdominal pain. Occasionally he will be constipated. He is currently taking Protonix for his gastric ulcer. He denies any blood in his stool, dark or tarry stool, or diarrhea. No fever or chills. Pain in the abdomen currently is located in the lower abdominal left side. He denies any urinary complaints or genital pain. No other complaints at this time. Exam demonstrates mildly enlarged abdomen, mild tenderness on the left. Mild rectus diastases. No focal tenderness otherwise. Concern for obstruction, mass or tumor, diverticulitis or less likely kidney stone. We will evaluate for these etiologies, monitor closely and reassess. 7:27 PM Laboratory work-up shows no white count, no bandemia or significant left shift. Hemoglobin stable. Renal function stable, BUN slightly elevated suggesting mild dehydration. Urinalysis negative for evidence of infection. CT scan shows no significant acute process, however there are few chronic components, there is an again noted 6 mm calculus in the left distal ureter, this position is unchanged. No proximal changes. No signs of infection or pyelonephritis on CT imaging or urinalysis. No diverticulitis, abdominal aortic aneurysm still relatively stable. No other abnormalities otherwise. On reassessment patient feels stable. He is concerned that his symptoms are mainly constipation. I do feel that they may certainly be a potential cause/etiology of his symptoms. Patient will be given magnesium citrate and Colace for home use. Patient otherwise stable for discharge recommend close [facility] and vascular surgeon at home for continued aneurysm follow-up. Discussed red flags for which to return. I have extensively reviewed the treatment plan and discharge instructions with the patient. I have addressed all patient concerns at this time. The patient was made aware of what symptoms to monitor for that would warrant a return to the emergency department. Discussed the plan with the patient, they demonstrate verbal understanding and agreement with our assessment and plan at this time. The documentation in this chart was dictated using [employer] dictation software. Please excuse any dictation errors. FINDINGS: VISUALIZED LUNG BASES: Mild increased markings in the posterior basal segment of the right lower lobe. No pleural effusions. Left lung base is clear.. ABDOMEN: There is no ascites. LIVER: Small 8 millimeter hypodensity in the right hepatic lobe is probably a hemangioma or cyst. No ominous focal lesions in the liver. No dilated intrahepatic ducts. GALLBLADDER/BILIARY: No obvious gallbladder pathology. CBD is not dilated. PANCREAS: No evidence of pancreatic mass nor dilatation of the pancreatic duct. SPLEEN: Spleen is not enlarged. No obvious intrasplenic lesions. Splenic and portal veins are patent. ADRENALS: There are no significant adrenal masses. KIDNEYS:Multiple small cysts in the left kidney measuring up to a size of 1.2 cm, not requiring further workup. Similar size cyst seen in the opposite-left kidney. There is a solitary nonobstructive small calculus in the left kidney. No hydronephrosis. There is also calculus again noted in the lower left ureter measuring approximately 6 mm without dilatation of the left ureter above this level. ABDOMINAL AORTA: The abdominal aorta is atherosclerotic. There is an infrarenal abdominal aortic aneurysm. Maximum diameter is 3.1 cm. 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 There is no aneurysmal dilatation of the right common iliac artery. LYMPH NODES:There is no retroperitoneal nor paraaortic adenopathy. ABDOMINAL WALL: No evidence of significant anterior abdominal wall nor inguinal hernia. GI: There is no evidence of bowel obstruction, free air, nor abscess. PELVIS: GI: No evidence of appendicitis.Sigmoid diverticuli without evidence of obvious acute diverticulitis. There also diverticuli in the descending-left colon at and distal to the splenic flexure but without diverticulitis evident. LYMPH NODES: There is no intrapelvic nor inguinal adenopathy. REPRODUCTIVE: Prostate gland is enlarged, measuring 6 cm wide. No obturator adenopathy. URINARY BLADDER: Mild uniform thickening of the bladder wall which is probably related to under distension. No obvious masses nor radiopaque calculi. OSSEOUS: No fractures and no significant osseous lesions. Mild degenerative anterolisthesis L4 upon L5. IMPRESSION: 1. Again noted is a 6 millimeter calculus in the distal left ureter, unchanged in position. There again does not appear to be significant dilatation of the collecting system above this level. There is another small nonobstructive calculus in left kidney itself. No calculi on the right side. No obvious calculi in the urinary bladder. 2. Diverticulosis of the entire left side of the colon, but without evidence of acute diverticulitis. Constipation which appears similar to CT scan 12/28/2021. There is no obvious obstructing lesion in the distal colon. No small bowel obstruction. 3. Abdominal aortic aneurysm measuring 3.1 cm. 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 Similar finding is not seen in the opposite-right common iliac artery. The distal common iliac arteries exhibit normal diameters bilaterally, as do the external iliac arteries and internal iliac arteries. Discussed with ER physician. HPI General Date/Time Provider Initiated Documentation: 10/02/23 14:49. HPI Narrative: 73-year-old male with a past medical history of previous stroke a year and a half ago currently on a baby aspirin, COPD, previous kidney stone, exposure to agent orange, gastric ulcer, who presents today for evaluation of abdominal pain. Patient states that for the last month he has had difficulty eating, and a diminishment of his desire to eat. He has lost 22 pounds per family. He has no history of colon cancer in his family. He states that he will vomit about 3 times per week. He has generalized on and off abdominal pain. Occasionally he will be constipated. He is currently taking Protonix for his gastric ulcer. He denies any blood in his stool, dark or tarry stool, or diarrhea. No fever or chills. Pain in the abdomen currently is located in the lower abdominal left side. He denies any urinary complaints or genital pain. No other complaints at this time. Related Data Home Medications Medication Instructions Recorded Confirmed acetaminophen 500 mg tablet 500 mg PO Q4H PRN 04/09/21 10/02/23 budesonide-formoterol HFA 80 2 puff inhalation BID 04/09/21 10/02/23 mcg-4.5 mcg/actuation aerosol inhaler (Symbicort) ipratropium 20 mcg-albuterol 100 1 puff inhalation TID 04/09/21 10/02/23 mcg/actuation mist for inhalation amlodipine 5 mg tablet 5 mg PO DAILY 12/26/21 10/02/23 aspirin 81 mg tablet 81 mg PO DAILY 12/28/21 10/02/23 pantoprazole 40 mg tablet,delayed 40 mg PO BID #60 tabs 12/29/21 10/02/23 release polyethylene glycol 3350 17 gram 17 g PO DAILY #30 ea 12/29/21 10/02/23 oral powder packet docusate sodium 100 mg capsule 100 mg PO BID #30 caps 10/02/23 (Colace) magnesium citrate 150 ml PO DAILY #296 mL 10/02/23 Previous Rx's Medication Instructions Recorded pantoprazole 40 mg tablet,delayed 40 mg PO BID #60 tabs 12/29/21 release polyethylene glycol 3350 17 gram 17 g PO DAILY #30 ea 12/29/21 oral powder packet docusate sodium 100 mg capsule 100 mg PO BID #30 caps 10/02/23 (Colace) magnesium citrate 150 ml PO DAILY #296 mL 10/02/23 Allergies Allergy/AdvReac Type Severity Reaction Status Date / Time No Known Allergies Allergy Unverified 10/02/23 14:53 General Stated Complaint: Abd Prob LUCY: 3 Review of Systems All systems reviewed & are unremarkable except as noted in HPI and below PFSH All Active Problems (Updated 10/02/23 @ 18:38 by Yaron Mohan DO) Constipation (Acute) Left sided abdominal pain (Acute) Discharge planning issues (Acute) Stroke (Chronic) Nausea & vomiting (Acute) Diverticulitis (Chronic) Duodenal ulcer (Acute) Ureterolithiasis (Acute) Medical History Thrombus [facility] note: Possible thrombus Knee pain AAA (abdominal aortic aneurysm) without rupture COPD (chronic obstructive pulmonary disease) Surgical History H/O cataract extraction Social History Smoking/Tobacco Use Status: Current every day Tobacco Type: cigarettes Years smoked: 50 Smoking risk assessment performed?: Yes Alcohol Intake: never Drug use: Never Substance use type: does not use Housing: house Do you feel safe at home: Yes Do you feel safe in your relationship?: Yes Exam Narrative Exam Narrative: 1.Const: Well-nourished, Well-developed, appearing stated age 2.Eyes: PERRL, no conjunctival injection, and symmetrical lids. 3.ENT: Atraumatic external nose and ears. Moist MM. Neck: Symmetric, trachea midline, No thyromegaly. 4.CVS: +S1/S2, No murmurs or gallops. Peripheral pulses 2+ and equal in all extremities. Brisk capillary refill in all extremities. 5.RESP: Unlabored respiratory effort. Clear to auscultation bilaterally. No wheezes rales or rhonchi 6.GI: Soft, nondistended. Rectus diastases present. Mild tenderness in the left side of his abdomen. No guarding or rebound. No masses. Minimal right-sided tenderness. No large hernia otherwise. Questionable small umbilical hernia. 7.MSK: Normocephalic/Atraumatic, Extremities w/o deformity or ttp No cyanosis or clubbing, Normal movement of all extremities, some mild chronic left-sided deficit in comparison to the right which is unchanged post stroke. 8.Skin: Warm, Dry. No rashes or lesions. 9.Neuro: accreditation manager II-XII grossly intact. Sensation grossly intact, no focal neurologic deficits. 10.Psych: (AAO) x3. Appropriate mood and affect Course Vital Signs Vital signs: Vital Signs Temperature 36.5 C 10/02/23 14:50 Pulse 100 H 10/02/23 14:50 Respiratory Rate 18 10/02/23 14:50 Blood Pressure 124/63 10/02/23 14:50 Pulse Oximetry 95 10/02/23 14:50 Temperature 36.5 C 10/02/23 14:50 Temperature Source Skin 10/02/23 14:50 Pulse 100 H 10/02/23 14:50 Respiratory Rate 18 10/02/23 14:50 Blood Pressure 124/63 10/02/23 14:50 Blood Pressure Position Sitting 10/02/23 14:50 Pulse Oximetry 95 10/02/23 14:50 Oxygen Delivery Method Room Air 10/02/23 14:50 Oxygen Flow Rate 0 10/02/23 14:50
[2023-10-02] MEDS: Dicyclomine 20 MG TAB PO (15:25)
[2023-10-02] MEDS: Normal Saline 500 ML IV (15:39)
[2023-10-02 15:51] LABS: Absolute Basophil Count 0.16 10^3/uL (0.0-0.2); Absolute Eosinophil Count 0.27 10^3/uL (0.0-0.7); Absolute Monocyte Count 0.66 10^3/uL (0.1-0.8); Absolute Neutrophil Count 7.05 10^3/uL (1.2-6.7); Basophils % 1.5; Eosinophils % 2.6; HCT 51.9 % (40.0-50.0); HGB 17.4 g/dL (13.5-17.5); Immature Grans % 1.9; Lymphocytes % 20.9; MCH 29.2 pg (27.0-33.0); MCHC 33.5 % (32.0-36.0); MCV 87 fL (80-95); MPV 9.8 fL (8.0-11.0); Monocytes % 6.3; Neutrophils % 66.8; Platelet Count 269 10^3/uL (130-400); RBC 5.95 10^6/uL (4.36-5.78); RDW 13.6 % (11.8-14.1); RDW-SD 43.8 fL; WBC 10.54 10^3/uL (4.4-10.8)
[2023-10-02 16:08] LABS: ALT 21 U/L (16-63); AST 10 U/L (15-37); Albumin 3.6 g/dL (3.4-5.0); Alkaline Phosphatase 98 U/L (46-116); Anion Gap 11.4 mmol/L (3-11); BUN 28 mg/dL (7-18); Bilirubin, Total 0.7 mg/dL (0.2-1.0); CO2 28.6 mmol/L (21.0-32.0); CREATININE 1.1 mg/dL (0.70-1.30); Calcium 9.4 mg/dL (8.5-10.1); Chloride 99 mmol/L (98-107); Estimated GFR 70.44 (mL/min/1.73m2); Glucose 97 mg/dL (74-106); Lipase 33 U/L (16-77); Potassium 3.9 mmol/L (3.5-5.1); Sodium 139 mmol/L (136-145); Total Protein 7.7 g/dL (6.4-8.2)
[2023-10-02] MEDS: Breeza Beverage 473 ML BTL PO ×2 (16:10→16:11)
[2023-10-02 16:11] LABS: Lactate 0.7 mmol/L (0.6-1.4)
[2023-10-02] MEDS: Omnipaque 350 MG/ML 50 ML BTL PO (16:11)
[2023-10-02 16:57] LABS: Bilirubin Negative (Negative); Blood Negative (Negative); Clarity Clear (Clear); Glucose Negative (Negative); Ketones Negative (Negative); Leukocyte Esterase Negative (Negative); Nitrite Negative (Negative); Specific Gravity 1.025 (1.005-1.025); pH 5.5 (5-8)
[2023-10-02] MEDS: Omnipaque 350 MG/ML 100 ML BTL IJ (17:34)
--- NOTE | 2023-10-02 17:44 | DI.CT_ITS ---
Exam(s) CT ABDOMEN PELVIS W EXAM: CT ABDOMEN PELVIS W CLINICAL HISTORY: weight loss, left abd pain, eval mass, obs, tics. TECHNIQUE: Imaging Protocol: Axial computed tomography images with coronal and sagittal reformatted images were created and reviewed CONTRAST MATERIAL: Intravenous: Omnipaque-350 100cc Oral: None COMPARISON: CT CT ABDOMEN PELVIS W from 12/28/2021 FINDINGS: VISUALIZED LUNG BASES: Mild increased markings in the posterior basal segment of the right lower lobe . No pleural effusions. Left lung base is clear.. ABDOMEN: There is no ascites. LIVER: Small 8 millimeter hypodensity in the right hepatic lobe is probably a hemangioma or cyst. No ominous focal lesions in the liver. No dilated intrahepatic ducts. GALLBLADDER/BILIARY: No obvious gallbladder pathology. CBD is not dilated. PANCREAS: No evidence of pancreatic mass nor dilatation of the pancreatic duct. SPLEEN: Spleen is not enlarged. No obvious intrasplenic lesions. Splenic and portal veins are paten t. ADRENALS: There are no significant adrenal masses. KIDNEYS:Multiple small cysts in the left kidney measuring up to a size of 1.2 cm, not requiring furth er workup. Similar size cyst seen in the opposite-left kidney. There is a solitary nonobstructive s mall calculus in the left kidney. No hydronephrosis. There is also calculus again noted in the lowe r left ureter measuring approximately 6 mm without dilatation of the left ureter above this level. ABDOMINAL AORTA: The abdominal aorta is atherosclerotic. There is an infrarenal abdominal aortic ane urysm. Maximum diameter is 3.1 cm. 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 There is no an eurysmal dilatation of the right common iliac artery. LYMPH NODES:There is no retroperitoneal nor paraaortic adenopathy. ABDOMINAL WALL: No evidence of significant anterior abdominal wall nor inguinal hernia. GI: There is no evidence of bowel obstruction, free air, nor abscess. PELVIS: GI: No evidence of appendicitis.Sigmoid diverticuli without evidence of obvious acute diverticulitis. There also diverticuli in the descending-left colon at and distal to the splenic flexure but withou t diverticulitis evident. LYMPH NODES: There is no intrapelvic nor inguinal adenopathy. REPRODUCTIVE: Prostate gland is enlarged, measuring 6 cm wide. No obturator adenopathy. URINARY BLADDER: Mild uniform thickening of the bladder wall which is probably related to under diste nsion. No obvious masses nor radiopaque calculi. OSSEOUS: No fractures and no significant osseous lesions. Mild degenerative anterolisthesis L4 upon L5. IMPRESSION: 1. Again noted is a 6 millimeter calculus in the distal left ureter, unchanged in position. There ag ain does not appear to be significant dilatation of the collecting system above this level. There is another small nonobstructive calculus in left kidney itself. No calculi on the right side. No obvi ous calculi in the urinary bladder. 2. Diverticulosis of the entire left side of the colon, but without evidence of acute diverticulitis. Constipation which appears similar to CT scan 12/28/2021. There is no obvious obstructing lesion i n the distal colon. No small bowel obstruction. 3. Abdominal aortic aneurysm measuring 3.1 cm. Also significant aneurysm of the proximal aspect of t he left common iliac artery which exhibits diameter 2.5 cm. Similar finding is not seen in the oppos ite-right common iliac artery. The distal common iliac arteries exhibit normal diameters bilaterally , as do the external iliac arteries and internal iliac arteries. Discussed with ER physician. RADIATION DOSE DELIVERED: Total DLP DATA REPOSITORY: All CT scans at this facility are submitted to the National Radiology Data Registry (NRDR) Dose Index Registry (DIR) with the [employer] ([employer]). RADIATION OPTIMIZATION: All CT scans at this facility use at least one of these dose optimization te chniques: automated exposure control; mA and/or kV adjustment per patient size (includes targeted exa ms where dose is matched to clinical indication); or iterative reconstruction.
[2023-10-02] MEDS: Normal Saline - Diluent 50 ML VIAL IJ (17:53)
[2023-10-02] MEDS: Normal Saline Flush 10 ML SYR IVP (17:53)
--- NOTE | 2023-10-02 18:16 | DI.VRAD_ITS ---
PROCEDURE INFORMATION: Exam: CT Abdomen And Pelvis With Contrast Exam date and time: 10/02/2023 5:39 PM Age: 73 years old Clinical indication: Other: Weight loss, left abd pain, eval mass, obs, tics TECHNIQUE: Imaging protocol: Computed tomography of the abdomen and pelvis with contrast. Contrast material: OMNIPAQUE 350; Contrast volume: 100 ml; Contrast route: INTRAVENOUS (IV); Other contrast: Oral, Breeza with omnipaque 350, 50; COMPARISON: CT ABDOMEN PELVIS W 12/28/2021 4:52 PM FINDINGS: Liver: Normal. No mass. Gallbladder and bile ducts: Normal. No calcified stones. No ductal dilation. Pancreas: Normal. No ductal dilation. Spleen: Normal. No splenomegaly. Adrenal glands: Normal. No mass. Kidneys and ureters: Scattered subcentimeter simple cortical cysts noted throughout both kidneys. No solid renal mass or hydronephrosis. Stomach and bowel: Diffuse diverticulosis of the distal colon. No bowel wall thickening or evidence of bowel obstruction. Appendix: No evidence of appendicitis. Intraperitoneal space: Unremarkable. No free air. No significant fluid collection. Vasculature: Moderate mural thrombus and atherosclerotic calcification throughout the aorta. Focal fusiform dilation of the left common iliac artery measuring maximum diameter of 2.6 cm. Fusiform dilation of the infrarenal abdominal aorta measuring maximum diameter of 3.0 cm. Prominent atherosclerotic calcification producing severe stenosis of the right common femoral artery and moderate stenosis of the left common femoral artery. Lymph nodes: Unremarkable. No enlarged lymph nodes. Urinary bladder: Unremarkable as visualized. Reproductive: Unremarkable as visualized. Bones/joints: Severe facet arthropathy in the lower lumbar spine with mild grade 1 anterolisthesis of L5. Mild multilevel degenerative disc changes. No acute fracture. Soft tissues: Unremarkable. 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 Otherwise stable chronic findings as noted. Dictated and Authenticated by: Hoang Alexander MD. Ordering:JASON Marrufo MD
== END 2023-10-02 18:47 | disposition home or self-care (01) ==
PROVIDERS: Emergency Provider Student in an Organized Health Care Education/Training Program
DX: R10.32 Left lower quadrant pain (principal); K25.9 Gastric ulcer, unspecified as acute or chronic, without hemorrhage or perforation; K59.00 Constipation, unspecified; J44.9 Chronic obstructive pulmonary disease, unspecified; Z87.442 Personal history of urinary calculi; Z77.098 Contact with and (suspected) exposure to other hazardous, chiefly nonmedicinal, chemicals; Z86.73 Personal history of transient ischemic attack (TIA), and cerebral infarction without residual deficits
CPT/HCPCS: 36415; 80053; 83690; 96360; 96361; 99285; 74177; 81003; 83605; 85025; 99283; J3490; Q9967

== ENCOUNTER 2024-10-26 07:26 | Observation (INO) | payer OTHER, SELFPAY ==
[2024-10-26] VITALS (46 sets, daily range): BP systolic 100–164; BP diastolic 69–102; PULSE 89–107; RESP 15–31; TEMP 36.5–37.8; O2SAT 91–96
--- NOTE | 2024-10-26 07:30 | RT.EKG_ITS ---
APPROVED REPORT Exam: Resting ECG Reason for Exam: weakness Patient Location: E HR:107 bpm ECG Measurements Heart Rate 107 AXIS SC 177 P 66 QRSd 91 QRS 62 QT 341 T 63 QTc 456 Conclusion Sinus tachycardia 107 normal axis no stemi
--- NOTE | 2024-10-26 07:51 | DI.CT_ITS ---
Exam(s) CT PELVIC W EXAM: CT PELVIC W CLINICAL HISTORY: left gluteal infection. TECHNIQUE: Imaging Protocol: Axial computed tomography images with coronal and sagittal reformatted images were created and reviewed. CONTRAST MATERIAL: Intravenous: Omnipaque 350 Contrast volume:100 mL contrast route:IV - Oral: no COMPARISON: CT CT ABDOMEN PELVIS W from 10/02/2023 FINDINGS: Bladder: No gross wall thickening. No stones.No evidence of mass. Bowel: No obstruction or bowel wall thickening. Diverticulosis again noted. Peritoneal cavity: No ascites, collection or mesenteric inflammatory response. Reproductive: Unremarkable. Vasculature: Stable atherosclerotic changes and dilatation of the distal abdominal aorta. Stable lef t iliac artery aneurysm. Bones: No acute findings. Soft tissues: Edema in the subcutaneous fat of the left gluteal region. No evidence of abnormal air or drainable collection. No visible gluteal muscle hematoma or fluid collection. Small fat contain ing umbilical hernia. Small bilateral fatty containing inguinal hernias. IMPRESSION: Edema in the soft tissues of the left gluteal region. No evidence of abscess or abnormal gas collect ion. No acute intra-abdominal abnormality. RADIATION DOSE DELIVERED: 329.7mGy.cm Total DLP DATA REPOSITORY: All CT scans at this facility are submitted to the National Radiology Data Registry (NRDR) Dose Index Registry (DIR) with the [employer] (ACR). RADIATION OPTIMIZATION: All CT scans at this facility use at least one of these dose optimization te chniques: automated exposure control; mA and/or kV adjustment per patient size (includes targeted exa ms where dose is matched to clinical indication); or iterative reconstruction.
[2024-10-26] MEDS: ACETAMINOPHEN 1,000 MG/100 ML BAG 400 MG IVPB (08:03)
--- NOTE | 2024-10-26 08:09 | ED.GENADUL_ITS ---
Discharge Plan Disposition Patient Disposition: Admit to [facility] Discharge Details Clinical Impression: Cellulitis Primary Care Provider: Unknown,Unknown ED Provider: Kianna Haas Home Meds and New Rx's Prescriptions: No Action magnesium citrate Solution 150 ml PO DAILY Qty: 296 0RF acetaminophen 500 mg Tablet 500 mg PO Q4H PRN budesonide-formoterol [Symbicort] 80-4.5 mcg/actuation Hfa Aerosol Inhaler 2 puff INHALATION BID ipratropium-albuterol 20-100 mcg/actuation Mist 1 puff INHALATION TID aspirin 81 mg Tablet 81 mg PO DAILY amlodipine 5 mg tablet 5 mg PO DAILY Patient Comments: TAKE 1 TABLET BY MOUTH DAILY pantoprazole 40 mg tablet,delayed release (DR/EC) 40 mg PO BID Qty: 60 0RF lovastatin .ROUTE [place]-3 350 mg-235 mg- 90 mg-597 mg capsule,delayed release(DR/EC) 1 cap PO DAILY polyethylene glycol 3350 17 gram Powder In Packet 17 g PO DAILY PRN docusate sodium [Colace] 100 mg capsule 100 mg PO BID PRN HPI General Date/Time Provider Initiated Documentation: 10/26/24 07:50 . Limitations to Documentation: other (Hard of hearing) . Information obtained by: patient and family . HPI Narrative: 74-year-old gentleman with past medical history including CVA, hyperlipidemia presents for evaluation of left hip pain. He reports that on Wednesday they were out of town and staying at a hotel when he fell and lost his balance. He fell backwards hitting his left butt cheek against the countertop. He reports that since then he has not been feeling well. He has been having bodyaches, subjective fever and chills. He has been taking Tylenol for the pain. He repor ts pain localized to the left buttocks, worse with walking or sitting. He states that he is basically unable to walk at this point because of the pain. He said generalized weakness, poor oral intake and not been feeling well at all. Related Data Home Medications ?Medication ?Instructions ?Recorded ?Confirmed acetaminophen 500 mg tablet 500 mg PO Q4H PRN 04/09/21 10/26/24 budesonide-formoterol HFA 80 2 puff inhalation BID 04/09/21 10/26/24 mcg-4.5 mcg/actuation aerosol inhaler (Symbicort) ipratropium 20 mcg-albuterol 100 1 puff inhalation TID 04/09/21 10/26/24 mcg/actuation mist for inhalation amlodipine 5 mg tablet 5 mg PO DAILY 12/26/21 10/26/24 aspirin 81 mg tablet 81 mg PO DAILY 12/28/21 10/26/24 pantoprazole 40 mg tablet,delayed 40 mg PO BID #60 tabs 12/29/21 10/26/24 release magnesium citrate 150 ml PO DAILY #296 mL 10/02/23 10/26/24 docusate sodium 100 mg capsule 100 mg PO BID PRN 10/26/24 10/26/24 (Colace) lovastatin .ROUTE 10/26/24 omega 3 350 mg-dha 235 mg-epa 90 1 cap PO DAILY 10/26/24 10/26/24 mg-fish oil 597 mg capsule,delay rel ([place]-3) polyethylene glycol 3350 17 gram 17 g PO DAILY PRN 10/26/24 10/26/24 oral powder packet Previous Rx's ?Medication ?Instructions ?Recorded pantoprazole 40 mg tablet,delayed 40 mg PO BID #60 tabs 12/29/21 release magnesium citrate 150 ml PO DAILY #296 mL 10/02/23 Allergies Allergy/AdvReac Type Severity Reaction Status Date / Time No Known Allergies Allergy Unverified 10/26/24 07:40 General Stated Complaint: Cellulitis LUCY: 3 Exam Narrative Exam Narrative: Review of Systems: All systems reviewed & are unremarkable except as noted in HPI and below Well-developed Afebrile NCAT Tachycardic Unlabored respiratory effort, no tachypnea, clear bilaterally Nondistended abdomen soft nontender Pelvis stable nontender, no inguinal tenderness, no lateral hip tenderness Extremities w/o deformity, normal range of motion of bilateral lower extremities On the left buttock there is an area of erythema and induration, exquisite tenderness approximately 10 x 10 Course Vital Signs Vital signs: Vital Signs Temperature 36.6 C 10/26/24 07:35 Pulse 107 H 10/26/24 07:35 Respiratory Rate 28 H 10/26/24 07:35 Blood Pressure 164/102 H 10/26/24 07:35 Pulse Oximetry 94 10/26/24 07:35 Temperature 36.6 C 10/26/24 07:35 Temperature Source Oral 10/26/24 07:35 Pulse 105 H 10/26/24 07:45 Pulse 105 H 10/26/24 07:50 Respiratory Rate 30 H 10/26/24 07:50 Blood Pressure 131/91 H 10/26/24 07:45 Blood Pressure Mean 103 10/26/24 07:45 Blood Pressure Position Sitting 10/26/24 07:35 Pulse Oximetry 94 10/26/24 07:50 Oxygen Delivery Method Room Air 10/26/24 07:35 Oxygen Flow Rate 0 10/26/24 07:35 Pain Level 8 10/26/24 07:35 Lab/Test Results Lab/Test Results: 10/26/24 08:00 Blood Blood Culture - Pending 10/26/24 07:50 Blood Blood Culture - Pending Medical Decision Making Emergent evaluation of left hip pain likely secondary to large left gluteal abscess. No signs of perianal or perirectal involvement. Subjective fever and chills at home. Noted to be tachycardic, but no fever here. He does seem to have some over whelming 6 symptoms, so I do have a suspicion for sepsis. Concern for a infectious transformation for him a hematoma secondary to his trauma. The fall and balance issues are chronic for the patient since his stroke. Plan for lab work, infectious workup, cultures. Will treat with IV fluids anticipate need for hospitalization and evacuation of the infectious area. 0922 Lab work reviewed. Elevation of white blood cell count with left shift noted. Inflammatory markers are also significantly elevated. Procalcitonin and lactic acid are not elevated. The CT scan of the area was obtained and there is noted induration and signs of infection without any abscess collection. Therefore no indication for drainage of the area. However given the extent of the cellulitis area as well as his age comorbidities and signs of systemic infection, I do feel he needs treatment with IV antibiotics and hospitalization. I have discussed with the hospitalist who agrees to admit the patient. Quality:SDOH Health Related Social Needs: No Data to Display PFSH All Active Problems (Updated 10/26/24 @ 09:13 by Kianna Haas MD) Cellulitis (Acute) Discharge planning issues (Acute) Diverticulitis (Chronic) Duodenal ulcer (Acute) Medical History [facility]: Possible thrombus Knee pain AAA (abdominal aortic aneurysm) without rupture COPD (chronic obstructive pulmonary disease) Ureterolithiasis Surgical History H/O cataract extraction Social History Smoking/Tobacco Use Status: Current every day Tobacco Type: cigarettes Years smoked: 50 Smoking risk assessment performed?: Yes Alcohol Intake: never Drug use: Never Substance use type: does not use Housing: house Do you feel safe at home: Yes Do you feel safe in your relationship?: Yes
[2024-10-26 08:10] LABS: Absolute Basophil Count 0.04 10^3/uL (0.0-0.2); Absolute Eosinophil Count 0.01 10^3/uL (0.0-0.7); Absolute Neutrophil Count 11.88 10^3/uL (1.2-6.7); Basophils % 0.3 %; Eosinophils % 0.1 %; HGB 15.9 g/dL (13.5-17.5); Immature Grans % 0.7 %; Lactate 0.8 mmol/L (0.6-1.4); Lymphocytes % 8.2 %; MCH 29.5 pg (27.0-33.0); MCHC 33.1 % (32.0-36.0); MCV 89 fL (80-95); MPV 9.4 fL (8.0-11.0); Monocytes % 7.7 %; Platelet Count 192 10^3/uL (130-400); RBC 5.39 10^6/uL (4.36-5.78); RDW 13.7 % (11.8-14.1); RDW-SD 45.1 fL; WBC 14.31 10^3/uL (4.4-10.8)
[2024-10-26] MEDS: Normal Saline 1,000 ML 1000 ML IV (08:10)
[2024-10-26 08:11] LABS: Absolute Lymphocyte Count 1.17 10^3/uL (1.2-3.4)
[2024-10-26 08:13] LABS: ESR 41 mm/hr (0-20)
[2024-10-26 08:29] LABS: ALT 33 U/L (16-63); AST 19 U/L (15-37); Albumin 3.4 g/dL (3.4-5.0); Alkaline Phosphatase 94 U/L (46-116); Anion Gap 11.2 mmol/L (3-11); BUN 18 mg/dL (7-18); Bilirubin, Total 0.83 mg/dL (0.2-1.0); C-Reactive Protein 20.26 mg/dL (<or=0.5); CO2 24.8 mmol/L (21.0-32.0); CREATININE 1.1 mg/dL (0.70-1.30); Calcium 8.5 mg/dL (8.5-10.1); Chloride 102 mmol/L (98-107); Estimated GFR 70.01 (mL/min/1.73m2); Glucose 118 mg/dL (74-106); Potassium 3.9 mmol/L (3.5-5.1); Sodium 138 mmol/L (136-145); Total Protein 7.6 g/dL (6.4-8.2)
[2024-10-26 08:41] LABS: Procalcitonin < 0.10 ng/mL
[2024-10-26] MEDS: Normal Saline - Diluent 50 ML VIAL IJ (08:42)
[2024-10-26] MEDS: Omnipaque 350 MG/ML 100 ML BTL IJ (08:43)
[2024-10-26] MEDS: ceFAZolin 2 GM/50 ML BAG IVPB ×2 (09:25→17:57)
[2024-10-26] MEDS: Nicotine 21 MG/24 HR PATCH TD (09:33)
[2024-10-26 09:38] LABS: Lab Add On Test DONE
[2024-10-26 09:52] LABS: Creatine Kinase 128 U/L (39-308)
--- NOTE | 2024-10-26 10:46 | HPE_ITS ---
Date of service: 10/26/24 Time of Service: 10:46 Assessment and Plan Assessment and plan (1) Cellulitis: Status: Acute Assessment and plan: Continue cefazolin as initiated in the emergency department No drainable collection/abscess noted on CT imaging Hemodynamically stable Will continue to closely monitor (2) COPD (chronic obstructive pulmonary disease): Status: Chronic Assessment and plan: stable continue home meds (3) Fall: Status: Acute Assessment and plan: fall precautions PT consult (4) Constipation: Status: Acute Assessment and plan: Continue routine bowel management (5) Hypertension: Status: Chronic Assessment and plan: continue blood pressure meds routine monitoring and adjust if needed (6) History of stroke: Status: Chronic Assessment and plan: with right sided deficit. history of falls PT/OT. (7) Discharge planning issues: Status: Acute Assessment and plan: PT consult for discharge planning case management following discussed with DR Ling History of Present Illness Narrative: This is a 74-year-old male patient past medical history significant for hypertension dyslipidemia duodenal ulcer COPD CVA with residual right-sided weakness who presents to the emergency department after mechanical fall several days ago fell back and struck his left buttocks on the corner of a counter. Has been having increasing pain and swelling in the area making it difficult to safely really ambulate. He has had no fever or chills. Workup in the emergency department included a CAT scan which showed no evidence of abscess or fluid collection. He was started on cefazolin and admission request to hospitalist services placed. Notable labs included a white count of 14 but no significant left shift. Normal kidney function and electrolytes. No other complaints or lab findings. Review of Systems All systems reviewed & are unremarkable except as noted in HPI and below PFSH All Active Problems (Updated 10/26/24 @ 10:50 by Manda Pardo NP) History of stroke (Chronic) Hypertension (Chronic) Constipation (Acute) Fall (Acute) COPD (chronic obstructive pulmonary disease) (Chronic) Cellulitis (Acute) Discharge planning issues (Acute) Diverticulitis (Chronic) Duodenal ulcer (Acute) Medical History [facility]bus [facility]: Possible thrombus Knee pain AAA (abdominal aortic aneurysm) without rupture COPD (chronic obstructive pulmonary disease) Ureterolithiasis Surgical History H/O cataract extraction Social History Smoking/Tobacco Use Status: Current every day Tobacco Type: cigarettes Years smoked: 50 Smoking risk assessment performed?: Yes Alcohol Intake: never Drug use: Never Substance use type: does not use Housing: house Do you feel safe at home: Yes Do you feel safe in your relationship?: Yes Meds Allergies and Home Medications Allergies Allergy/AdvReac Type Severity Reaction Status Date / Time No Known Allergies Allergy Unverified 10/26/24 07:40 Home Medications ?Medication ?Instructions ?Recorded ?Confirmed ?Type acetaminophen 500 mg tablet 500 mg PO Q4H PRN 04/09/21 10/26/24 History budesonide-formoterol HFA 80 2 puff inhalation BID 04/09/21 10/26/24 History mcg-4.5 mcg/actuation aerosol inhaler (Symbicort) ipratropium 20 mcg-albuterol 100 1 puff inhalation TID 04/09/21 10/26/24 History mcg/actuation mist for inhalation amlodipine 5 mg tablet 5 mg PO DAILY 12/26/21 10/26/24 History aspirin 81 mg tablet 81 mg PO DAILY 12/28/21 10/26/24 History pantoprazole 40 mg tablet,delayed 40 mg PO BID #60 tabs 12/29/21 10/26/24 Rx release magnesium citrate 150 ml PO DAILY #296 mL 10/02/23 10/26/24 Rx docusate sodium 100 mg capsule 100 mg PO BID PRN 10/26/24 10/26/24 History (Colace) lovastatin .ROUTE 10/26/24 History omega 3 350 mg-dha 235 mg-epa 90 1 cap PO DAILY 10/26/24 10/26/24 History mg-fish oil 597 mg capsule,delay rel ([place]-3) polyethylene glycol 3350 17 gram 17 g PO DAILY PRN 10/26/24 10/26/24 History oral powder packet Exam Narrative Exam Narrative: White male stated age no acute distress head is atraumatic eyes nonicteric noninjected oral mucosas moist neck supple full range of motion no cervical spine tenderness on palpation respirations even and unlabored cardiovascular regular rate and rhythm abdomen is benign. Skin with firm indurated area approximately 3 cm's on his left buttock. Tender to touch. Not fluctuant. Central scab intact surrounding area of erythema approximately 4 cm's, chronic right-sided weakness from previous stroke at baseline Results Labs 10/26/24 08:00 10/26/24 08:00 Labs: Laboratory Results - last 24 hr 10/26/24 10/26/24 08:00 09:37 WBC 14.31 H RBC 5.39 Hgb 15.9 Hct 48.0 MCV 89 MCH 29.5 MCHC 33.1 RDW 13.7 Plt Count 192 MPV 9.4 Immature Gran % 0.7 Neutrophils % 83.0 Lymphocytes % 8.2 Monocytes % 7.7 Eosinophils % 0.1 Basophils % 0.3 Nucleated RBC % 0.0 Absolute Neutrophils 11.88 H Absolute Lymphocytes 1.17 L Absolute Monocytes 1.10 H Absolute Eosinophils 0.01 Absolute Basophils 0.04 ESR 41 H VBG Lactate 0.8 Sodium 138 Potassium 3.9 Chloride 102 Carbon Dioxide 24.8 Anion Gap 11.2 H BUN 18 Creatinine 1.1 Est GFR (CKD-EPI 2020) 70.01 Glucose 118 H Calcium 8.5 Total Bilirubin 0.83 AST 19 ALT 33 Alkaline Phosphatase 94 Creatine Kinase 128 C-Reactive Protein 20.26 H Total Protein 7.6 Albumin 3.4 Procalcitonin < 0.10 Add-On Test Request DONE Last Vital Signs Temp 37.7 C H 10/26/24 08:53 Pulse 92 H 10/26/24 10:15 Resp 16 10/26/24 09:37 BP 123/76 10/26/24 10:15 Pulse Ox 95 10/26/24 10:20 Time Spent Time spent with Patient: 40-54 minutes Time was spent: preparing to see the patient(eg.review tests), obtaining and/or reviewing separately otained hiistory, ordering medications,tests, procedures, indepentently interpreting results and counseling the patient
--- NOTE | 2024-10-26 12:54 | W.PC.ACHO ---
Registration Status: Primary Language: Preferred Language: ED Information & Data Chief Complaint Cellulitis 10/26/24 08:39 Chief Complaint Cellulitis 10/26/24 08:16 Triage Note Wednesday lost balance in the 10/26/24 07:35 bathroom and fell against countertop hurting left buttock. States it's red/ tender difficult to sit & walk. Has not eaten since Wednesday night after a bad case of diarrhea x 1. Assumed he had food poisoning- body aches, cold chills/sweats. Taking 2000mg APAP Po BID for pain Medical / Surgical History (Last Reviewed 10/26/24 @ 08:14 by Kianna Haas MD) Stroke Thrombus Knee pain AAA (abdominal aortic aneurysm) without rupture Ureterolithiasis (Last Reviewed 10/26/24 @ 08:14 by Kianna Haas MD) H/O cataract extraction Most Recent Vital Signs Temperature 36.5 C 10/26/24 11:55 Temperature Source Temporal Artery Scan 10/26/24 08:53 Pulse 92 H 10/26/24 11:55 Pulse Rhythm Regular 10/26/24 11:55 Pulse 96 H 10/26/24 08:31 Respiratory Rate 18 10/26/24 11:55 Respiratory Effort Normal 10/26/24 11:55 Respiratory Depth Normal 10/26/24 11:55 Respiratory Pattern Normal 10/26/24 11:55 Blood Pressure 146/92 H 10/26/24 11:55 Blood Pressure Mean 93 10/26/24 11:16 Blood Pressure Position Supine 10/26/24 09:37 Pulse Oximetry 96 10/26/24 11:55 Oxygen Delivery Method Room Air 10/26/24 11:55 Oxygen Flow Rate 0 10/26/24 11:55 Pain Level 8 10/26/24 11:55 Comment SOB with exertion 10/26/24 11:55 Allergies No Known Allergies Allergy (Unverified 10/26/24 07:40) Precautions Isolation Standard precaution 10/26/24 08:39 IV IV Catheter Type [Left Peripheral IV Antecubital] IV Catheter Gauge [Left 20 Antecubital] Diet Orders Category Date Time Status Regular/Normal [DIET] Nutrition 10/26/24 Lunch Active Diagnostics 10/26/24 10/26/24 Range/Units 09:37 08:00 WBC 14.31 H (4.4-10.8) 10^3/uL RBC 5.39 (4.36-5.78) 10^6/uL Hgb 15.9 (13.5-17.5) g/dL Hct 48.0 (40.0-50.0) % MCV 89 (80-95) fL MCH 29.5 (27.0-33.0) pg MCHC 33.1 (32.0-36.0) % RDW 13.7 (11.8-14.1) % Plt Count 192 (130-400) 10^3/uL MPV 9.4 (8.0-11.0) fL Immature Gran % 0.7 % Neutrophils % 83.0 % Lymphocytes % 8.2 % Monocytes % 7.7 % Eosinophils % 0.1 % Basophils % 0.3 % Nucleated RBC % 0.0 (0.0-0.3) % Absolute Neutrophils 11.88 H (1.2-6.7) 10^3/uL Absolute Lymphocytes 1.17 L (1.2-3.4) 10^3/uL Absolute Monocytes 1.10 H (0.1-0.8) 10^3/uL Absolute Eosinophils 0.01 (0.0-0.7) 10^3/uL Absolute Basophils 0.04 (0.0-0.2) 10^3/uL ESR 41 H (0-20) mm/hr VBG Lactate 0.8 (0.6-1.4) mmol/L Sodium 138 (136-145) mmol/L Potassium 3.9 (3.5-5.1) mmol/L Chloride 102 (98-107) mmol/L Carbon Dioxide 24.8 (21.0-32.0) mmol/L Anion Gap 11.2 H (3-11) mmol/L BUN 18 (7-18) mg/dL Creatinine 1.1 (0.70-1.30) mg/dL Est GFR (CKD-EPI 2020) 70.01 (mL/min/1.73m2) Glucose 118 H (74-106) mg/dL Calcium 8.5 (8.5-10.1) mg/dL Total Bilirubin 0.83 (0.2-1.0) mg/dL AST 19 (15-37) U/L ALT 33 (16-63) U/L Alkaline Phosphatase 94 (46-116) U/L Creatine Kinase 128 (39-308) U/L C-Reactive Protein 20.26 H (<or=0.5) mg/dL Total Protein 7.6 (6.4-8.2) g/dL Albumin 3.4 (3.4-5.0) g/dL Procalcitonin < 0.10 ng/mL Add-On Test Request DONE 10/26/24 09:07 Blood Culture - Pending Blood 10/26/24 08:00 Blood Culture - Pending Blood Intake and Output - 24 Hour Total 10/26/24 07:26 thru 10/26/24 11:55 Intake Total 1150 Balance 1150 Weight 92.2 kg Intake: IV 1150 Other: Urine Appearance Clear Falls Risk Assessment History of Falls Admit Due to Fall 10/26/24 11:55 Contributing Factors Impairments,Medications 10/26/24 11:55 Ambulatory Aids Independent 10/26/24 11:55 Tubes/Lines W/no contributing factors 10/26/24 11:55 Gait Evaluation W/no contributing factors 10/26/24 11:55 Cognition No cognitive impairment 10/26/24 08:41 Fall Total Score 51 10/26/24 11:55 Level of Risk High Risk 10/26/24 11:55 Problems (Last Reviewed 10/26/24 @ 08:14 by Kianna Haas MD) History of stroke (Chronic) Hypertension (Chronic) Constipation (Acute) Fall (Acute) COPD (chronic obstructive pulmonary disease) (Chronic) Cellulitis (Acute) Discharge planning issues (Acute) v v v v v v v v v Sending and/or Receiving Nurses: Please use comment section below to note any information pertinent to the patient hand-off not included above. Information / Comments: Neuro: AxOx4, pleasant, hx of stroke Cardiac:tachycardic Resp: clear GI: WNL : WNL Skin: Bruise. redness left buttocks from fall Access: 20g Elevated WBC, Poor PO intake, Current smoker ED: Medications: 1L NaCl, IV Tylenol, IV Cefzolin Report received from:JOHN Jarrett (ED RN) 11:30
[2024-10-26] MEDS: Acetaminophen 500 MG TAB PO (13:10)
[2024-10-26] MEDS: Ketorolac 15 MG/ML VIAL IVP (15:33)
[2024-10-26] MEDS: Normal Saline Flush 10 ML SYR IVP (15:34)
--- NOTE | 2024-10-26 17:23 | W.PC.ACHO ---
Registration Status: Primary Language: Preferred Language: ED Information & Data Chief Complaint Cellulitis 10/26/24 08:39 Chief Complaint Cellulitis 10/26/24 08:16 Triage Note Wednesday lost balance in the 10/26/24 07:35 bathroom and fell against countertop hurting left buttock. States it's red/ tender difficult to sit & walk. Has not eaten since Wednesday night after a bad case of diarrhea x 1. Assumed he had food poisoning- body aches, cold chills/sweats. Taking 2000mg APAP Po BID for pain Medical / Surgical History (Last Reviewed 10/26/24 @ 08:14 by Kianna Haas MD) Stroke Thrombus Knee pain AAA (abdominal aortic aneurysm) without rupture Ureterolithiasis (Last Reviewed 10/26/24 @ 08:14 by Kianna Haas MD) H/O cataract extraction Most Recent Vital Signs Temperature 36.9 C 10/26/24 15:11 Temperature Source Temporal Artery Scan 10/26/24 15:11 Pulse 104 H 10/26/24 15:11 Pulse Rhythm Regular 10/26/24 11:55 Pulse 96 H 10/26/24 08:31 Respiratory Rate 18 10/26/24 15:11 Respiratory Effort Normal 10/26/24 11:55 Respiratory Depth Normal 10/26/24 11:55 Respiratory Pattern Normal 10/26/24 11:55 Blood Pressure 121/70 10/26/24 15:11 Blood Pressure Mean 93 10/26/24 11:16 Blood Pressure Position Supine 10/26/24 09:37 Pulse Oximetry 95 10/26/24 15:11 Oxygen Delivery Method Room Air 10/26/24 15:11 Oxygen Flow Rate 0 10/26/24 15:11 Pain Level 8 10/26/24 15:33 Comment pain in buttock 10/26/24 15:11 Allergies No Known Allergies Allergy (Unverified 10/26/24 07:40) Precautions Isolation Standard precaution 10/26/24 08:39 Active Medications Generic Name Dose Route Start Last Admin Trade Name Freq PRN Reason Stop Dose Admin Acetaminophen 650 mg 10/26/24 16:00 10/26/24 15:56 Acetaminophen 325 Mg Tab PO Not Given QID KOKI Ketorolac Tromethamine 15 mg 10/26/24 15:10 10/26/24 15:33 Ketorolac 15 Mg/Ml Vial IVP 10/31/24 15:09 15 mg Q6H PRN PRN Administration Sodium Chloride 0 ml 10/26/24 10:38 10/26/24 15:34 Normal Saline Flush 10 Ml Syr IVP 10 ml PRN PRN Administration IV IV Catheter Type [Left Peripheral IV Antecubital] IV Catheter Gauge [Left 20 Antecubital] Diet Orders Category Date Time Status Regular/Normal [DIET] Nutrition 10/26/24 Lunch Active Diagnostics 10/26/24 10/26/24 Range/Units 09:37 08:00 WBC 14.31 H (4.4-10.8) 10^3/uL RBC 5.39 (4.36-5.78) 10^6/uL Hgb 15.9 (13.5-17.5) g/dL Hct 48.0 (40.0-50.0) % MCV 89 (80-95) fL MCH 29.5 (27.0-33.0) pg MCHC 33.1 (32.0-36.0) % RDW 13.7 (11.8-14.1) % Plt Count 192 (130-400) 10^3/uL MPV 9.4 (8.0-11.0) fL Immature Gran % 0.7 % Neutrophils % 83.0 % Lymphocytes % 8.2 % Monocytes % 7.7 % Eosinophils % 0.1 % Basophils % 0.3 % Nucleated RBC % 0.0 (0.0-0.3) % Absolute Neutrophils 11.88 H (1.2-6.7) 10^3/uL Absolute Lymphocytes 1.17 L (1.2-3.4) 10^3/uL Absolute Monocytes 1.10 H (0.1-0.8) 10^3/uL Absolute Eosinophils 0.01 (0.0-0.7) 10^3/uL Absolute Basophils 0.04 (0.0-0.2) 10^3/uL ESR 41 H (0-20) mm/hr VBG Lactate 0.8 (0.6-1.4) mmol/L Sodium 138 (136-145) mmol/L Potassium 3.9 (3.5-5.1) mmol/L Chloride 102 (98-107) mmol/L Carbon Dioxide 24.8 (21.0-32.0) mmol/L Anion Gap 11.2 H (3-11) mmol/L BUN 18 (7-18) mg/dL Creatinine 1.1 (0.70-1.30) mg/dL Est GFR (CKD-EPI 2020) 70.01 (mL/min/1.73m2) Glucose 118 H (74-106) mg/dL Calcium 8.5 (8.5-10.1) mg/dL Total Bilirubin 0.83 (0.2-1.0) mg/dL AST 19 (15-37) U/L ALT 33 (16-63) U/L Alkaline Phosphatase 94 (46-116) U/L Creatine Kinase 128 (39-308) U/L C-Reactive Protein 20.26 H (<or=0.5) mg/dL Total Protein 7.6 (6.4-8.2) g/dL Albumin 3.4 (3.4-5.0) g/dL Procalcitonin < 0.10 ng/mL Add-On Test Request DONE 10/26/24 09:07 Blood Culture - Pending Blood 10/26/24 08:00 Blood Culture - Pending Blood Intake and Output - 24 Hour Total 10/26/24 07:26 thru 10/26/24 11:55 Intake Total 1150 Balance 1150 Weight 92.2 kg Intake: IV 1150 Other: Urine Appearance Clear Falls Risk Assessment History of Falls Admit Due to Fall 10/26/24 11:55 Contributing Factors Impairments,Medications 10/26/24 11:55 Ambulatory Aids Independent 10/26/24 11:55 Tubes/Lines W/no contributing factors 10/26/24 11:55 Gait Evaluation W/no contributing factors 10/26/24 11:55 Cognition No cognitive impairment 10/26/24 08:41 Fall Total Score 51 10/26/24 11:55 Level of Risk High Risk 10/26/24 11:55 Problems (Last Reviewed 10/26/24 @ 08:14 by Kianna Haas MD) History of stroke (Chronic) Hypertension (Chronic) Constipation (Acute) Fall (Acute) COPD (chronic obstructive pulmonary disease) (Chronic) Cellulitis (Acute) Discharge planning issues (Acute) v v v v v v v v v Sending and/or Receiving Nurses: Please use comment section below to note any information pertinent to the patient hand-off not included above. Information / Comments: OR report reviewed with the author of this note. Patient was reported to have had multiple episodes of hypotension after sitting up in the chair in PACU. Vitals reviewed and daughter at bedside at this time. Medical history reviewed at bedside report. Report received from: JOHN Glass ([facility]) @ [id number]
[2024-10-26] MEDS: Budesonide/Formoterol 80/4.5 6.9 GM 60 PUFF INH IH (19:24)
[2024-10-26] MEDS: Docusate Sodium 100 MG CAP PO (20:39)
[2024-10-26] MEDS: Acetaminophen 325 MG TAB 650 MG PO (20:39)
[2024-10-27] VITALS (10 sets, daily range): BP systolic 132–198; BP diastolic 84–111; PULSE 93–99; RESP 16–22; TEMP 36–37; O2SAT 93–99
[2024-10-27] MEDS: ceFAZolin 2 GM/50 ML BAG IVPB ×3 (02:10→18:04)
[2024-10-27 06:55] LABS: Abs Immature Grans 0.09 10^3/uL (0.0-0.06); Absolute Basophil Count 0.04 10^3/uL (0.0-0.2); Absolute Eosinophil Count 0.08 10^3/uL (0.0-0.7); Absolute Monocyte Count 0.92 10^3/uL (0.1-0.8); Basophils % 0.3 %; Eosinophils % 0.6 %; HCT 46.5 % (40.0-50.0); HGB 15.7 g/dL (13.5-17.5); Immature Grans % 0.6 %; Lymphocytes % 8.3 %; MCH 29.3 pg (27.0-33.0); MCHC 33.8 % (32.0-36.0); MCV 87 fL (80-95); MPV 9.6 fL (8.0-11.0); Monocytes % 6.5 %; Neutrophils % 83.7 %; Platelet Count 214 10^3/uL (130-400); RBC 5.35 10^6/uL (4.36-5.78); RDW 13.4 % (11.8-14.1); RDW-SD 42.7 fL; WBC 14.14 10^3/uL (4.4-10.8)
[2024-10-27 07:00] LABS: Absolute Lymphocyte Count 1.17 10^3/uL (1.2-3.4); Absolute Neutrophil Count 11.84 10^3/uL (1.2-6.7)
[2024-10-27 07:17] LABS: Anion Gap 10.8 mmol/L (3-11); BUN 16 mg/dL (7-18); CO2 24.2 mmol/L (21.0-32.0); Calcium 8.7 mg/dL (8.5-10.1); Chloride 104 mmol/L (98-107); Estimated GFR 78.49 (mL/min/1.73m2); Glucose 120 mg/dL (74-106); Potassium 3.7 mmol/L (3.5-5.1); Sodium 139 mmol/L (136-145)
[2024-10-27] MEDS: Budesonide/Formoterol 80/4.5 6.9 GM 60 PUFF INH IH ×2 (07:40→19:51)
[2024-10-27] MEDS: Ketorolac 15 MG/ML VIAL IVP (07:58)
[2024-10-27] MEDS: Acetaminophen 325 MG TAB 650 MG PO ×4 (07:59→19:51)
[2024-10-27] MEDS: amLODIPine 5 MG TAB PO ×2 (08:00→13:34)
[2024-10-27] MEDS: Docusate Sodium 100 MG CAP PO (08:01)
[2024-10-27] MEDS: Normal Saline Flush 10 ML SYR IVP ×2 (08:01→19:51)
[2024-10-27] MEDS: Aspirin E.C. 81 MG TABEC PO (08:02)
--- NOTE | 2024-10-27 10:15 | W.PM.PROGNOT ---
Date of Service Date of service: 10/27/24 Time of Service: 10:15 Assessment and Plan Assessment and plan (1) Cellulitis: Status: Acute Assessment and plan: Ongoing cefazolin IV initiated in the ED WBC remains around 14 Will complete MRSA PCR-expecting most likely negative result as the patient does not remember having had any multi resistant pathogen in the past and blood cultures showing no growth at [address] completed on 10/26 there was no abscess, no drainable fluid collection, no hematoma CRP in a.m. CBC in the morning (2) COPD (chronic obstructive pulmonary disease): Status: Chronic Assessment and plan: No exacerbation of the condition at this time Ongoing home meds (3) Fall: Status: Acute Assessment and plan: Ongoing fall precautions PT consult completed with recommendation for home health PT at discharge (4) Constipation: Status: Acute Assessment and plan: The patient was on routine bowel management but had 2 liquid to soft stools today Will reduce frequency of bowel management meds (5) Hypertension: Status: Chronic Assessment and plan: Will continue blood pressure meds Consider adjusting as the patient received an extra dose of Norvasc due to blood pressure of >180/110 with headache, vomiting. The patient was not certain of home meds?also [facility] feeling drugs in multiple locations?[facility] med rec ordered Continue close monitoring and adjust if needed (6) History of stroke: Status: Chronic Assessment and plan: with reported right sided residual deficit. No acute exacerbation And as above PT/OT. (7) Discharge planning issues: Status: Acute Assessment and plan: PT consult for discharge planning with recommendation for home health PT Followed by care management Discussed with Dr. Ling Subjective Subjective Patient reports: pain is less, tolerating liquids well, voiding w/o difficulty, flatus, bowel movement, diarrhea, nausea, vomiting and afebrile; denies tolerating a regular diet, blood in stool or shortness of breath Exam Narrative Exam Narrative: Constitutional The patient is in bed comfortable but anxious re; eating d/t earlier vomiting episode;cooperative The patient is without acute distress HENMT: Facial structures with normal appearance Eyes: Well aligned Neuro:alert and oriented X4 . No neurological focal deficit Resp:Unlabored breathing, clear lung bilaterally Cardio: regular rhythm, S1, S2, no murmur, capillary refill<3 sec., bilateral radial and dorsalis pedis pulses are palpable GI: Abdomen is not distended, soft and non tender, bowel sounds are present : Negative Costovertebral angle tenderness Back/spine/Pelvis: No back tenderness Integumentary: left gluteal area with blanching erythema- skin break down in central area is scabbing over Extremities: strength 5/5 to bilateral lower and upper extremities Psych: RASS 0, congruent to anxious mood and normal affect. Objective Last Vital Signs Temp 36.4 C L 10/27/24 07:58 Pulse 99 H 10/27/24 07:46 Resp 18 10/27/24 07:46 BP 179/107 H 10/27/24 07:46 Pulse Ox 94 10/27/24 07:46 Laboratory Results - last 24 hr 10/27/24 06:10 WBC 14.14 H RBC 5.35 Hgb 15.7 Hct 46.5 MCV 87 MCH 29.3 MCHC 33.8 RDW 13.4 Plt Count 214 MPV 9.6 Immature Gran % 0.6 Neutrophils % 83.7 Lymphocytes % 8.3 Monocytes % 6.5 Eosinophils % 0.6 Basophils % 0.3 Nucleated RBC % 0.0 Absolute Neutrophils 11.84 H Absolute Lymphocytes 1.17 L Absolute Monocytes 0.92 H Absolute Eosinophils 0.08 Absolute Basophils 0.04 Sodium 139 Potassium 3.7 Chloride 104 Carbon Dioxide 24.2 Anion Gap 10.8 BUN 16 Creatinine 1.0 Est GFR (CKD-EPI 2020) 78.49 Glucose 120 H Calcium 8.7 Time Spent with Patient Time Spent with Patient: >50 minutes Time was spent: preparing to see the patient(eg.review tests), obtaining and/or reviewing separately otained hiistory, ordering medications,tests, procedures, referring, communicating with other health care team coordinator scheduler, indepentently interpreting results, counseling the patient and care coordination
--- NOTE | 2024-10-27 14:08 | PDOC.CMIN ---
Date of service: 10/27/24 Time of Service: 14:08 Care Management Initial Assmt Initial Assessment Reason for Hospitalization: cellulitis, s/p fall Functional Status/Living Situation Patient Presentation: Evens was admitted yesterday, through the ED, with c/o left hip pain. He fell 3 days prior and hit his left buttock against the countertop. Since then he has not been feeling well, with body aches and chills. He has been having pain that is making it difficult to ambulate. CT did not show abcess, but did show significant edema. When CM met with Evens today, he was lying in bed on his right side. He was pleasant, and easily engaged. He is independent at baseline, but PT consult has been ordered due to the pain and difficulty with ambulation. Evens has been having some issues with hypertension today, and is being closely monitored by nursing. His girlfriend, Pam came in at the end of the conversation. She was pleasant as well. 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, and now his children run the shop.) Instrumental Activities of Daily Living (ADLs): Independent Medications Medication Management: No Issues/Barriers identified Advance Directives Advance Directives: Do you have an Advance Directive: N 04/07/21 08:59 AD On File at [facility]: N 04/07/21 08:59 Date Asked 10/26/24 10/26/24 07:49 AD Date Reviewed COLST On File at [facility] COLST Date Scanned Code Status Resuscitation Status Full Code Insurance Coverage/Financial Issues [place]: [place] notification #[id number] Care Team Visit Care Team Role Provider Type Unknown Unknown Primary Care Provider STAFF PHYSICIAN Yonny Macdonald Other Providers OTHER Kianna Haas MD Emergency Provider [facility] STAFF PHYSICIAN Kirk Ling Admit Provider [facility] STAFF PHYSICIAN Attending Provider Other: PCP is at [place] [facility] [place] Discharge Potential Discharge Needs: PT Evaluation and PCP F/U Appt Anticipated Barriers to Discharge: None Identified Patient/Family Education Needs: Review discharge instructions, discuss Ask Me Three Transportation: Private vehicle (with Pam) Plan: Anticipate that Evens will be discharged home with no new services. He will f/u with his PCP at [facility], and continue per his plan of care. Evens will transport home with Pam. [facility] All Active Problems (Updated 10/26/24 @ 10:50 by Manda Pardo NP) History of stroke (Chronic) Hypertension (Chronic) Constipation (Acute) Fall (Acute) COPD (chronic obstructive pulmonary disease) (Chronic) Cellulitis (Acute) Discharge planning issues (Acute) Diverticulitis (Chronic) Duodenal ulcer (Acute) Medical History Stroke Thrombus Per [place] note: Possible thrombus Knee pain AAA (abdominal aortic aneurysm) without rupture COPD (chronic obstructive pulmonary disease) Ureterolithiasis Surgical History H/O cataract extraction Social History Smoking/Tobacco Use Status: Current every day Tobacco Type: cigarettes Years smoked: 50 Smoking risk assessment performed?: Yes Alcohol Intake: never Drug use: Never Substance use type: does not use Housing: house Do you feel safe at home: Yes Do you feel safe in your relationship?: Yes Readmission Within the Past 30 Days Yes or No: No SDOH(Care Management) Screening Will the Patient Participate in the Screening?: Yes Do you worry about having a steady place to live?: no Problems where you live: no known problems In the past 12 months, have you had to go without electric, gas, oil or water in your home?: no Have you or anyone in your house had to go without enough food to eat?: no Has lack of transportation kept you from medical appointments or from doing things needed for daily living?: no Has anyone in your support network made you feel unsafe for any reason?: no
--- NOTE | 2024-10-27 14:23 | IN_ITS ---
PT Notes Visit Reasons: Cellulitis Physical Therapy Inpatient Initial Evaluation Date: 10/27/2024 Referring Doctor: Vianey Keane NP PT Orders: PT CONSULT: SAfety Consult for D/C Precautions: Fall. Standard. Activity as tolerated. 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 Hard of hearing. Patient Profile/Admitting Diagnosis: Evens is a 74-year-old male with history of CVA and right-sided hemiparesis who presented to the ED on 10/26/2024 due to a fall several days prior to admission, geeralized weakness, and difficulty walking. Patient PMHX: All Active Problems (Updated 10/26/24 @ 10:50 by Manda Pardo NP) History of stroke (Chronic) Hypertension (Chronic) Constipation (Acute) Fall (Acute) COPD (chronic obstructive pulmonary disease) (Chronic) Cellulitis (Acute) Discharge planning issues (Acute) Diverticulitis (Chronic) Duodenal ulcer (Acute) Medical History [facility]: [facility]bus Knee pain AAA (abdominal aortic aneurysm) without rupture COPD (chronic obstructive pulmonary disease) Ureterolithiasis Surgical History H/O cataract extraction Social History/Home Situation: Independent mobility ADL performance without AD indoors. Equipment Owned/DME: [facility] Subjective: Patient does admit that although he does not use any device indoors, he does hold onto furnitures for stabilization. He admits to falling more than 5 times in the past year due to balance problems for the previous CVA he had. He has reservations about having HH PT come to his house but said that he is willing to work with them if it is needed. Objective: General Observation: Appears ill and weak. Breathing shallow and audible Mental Status: Alert and oriented as to person, place, time, and purpose. Able to pay attention, focus, and respond appropriately. Pain: 3-4/10 in L pelvis/hip where he hit with the fall Vital Signs: Closely monitored by nursing staff ROM: Right Upper Extremity: Shoulder Flexion allows up to 90 degrees only. Shoulder abduction allows up to 80 degrees only. Elbow flexion WFL. Wrist flexion WFL. Functional opening and closing of hand WFL. Left Upper Extremity: Shoulder Flexion allows up to 100 degrees only. Shoulder abduction allows up to 90 degrees only. Elbow flexion WFL. Wrist flexion WFL. Functional opening and closing of hand WFL. Right Lower Extremity: Hip flexion WFL. Hip abduction WFL. Knee flexion 30 degrees to 90 degrees. Knee extension -30 degrees. Ankle dorsiflexion to neutral only. Ankle plantarflexion WFL. Left Lower Extremity: Hip flexion WFL. Hip abduction WFL. Knee flexion WFL. Ankle dorsiflexion WFL. Ankle plantarflexion WFL. Strength: Right Upper Extremity: Shoulder flexors 3-/5. Shoulder abductors 3-/5. Elbow flexors 4-/5. Elbow extensors 4-/5. Patient Information Coordinator strong. Left Upper Extremity: Shoulder flexors 3-/5. Shoulder abductors 3-/5. Elbow flexors 4-/5. Elbow extensors 4-/5. Patient Information Coordinator strong. Right Lower Extremity: Hip flexors 4-/5. Hip abductors 4-/5. Knee flexors 4-/5. Knee extensors 3-/5. Ankle dorsiflexors 3-/5. Ankle plantarflexors 4-/5. Left Lower Extremity: Hip flexors 4/5. Hip abductors 4/5. Knee flexors 4/5. Knee extensors 4/5. Ankle dorsiflexors 4/5. Ankle plantarflexors 4/5. Bed Mobility/Transfers: Minimal cueing provided for use of B hands as needed for support, movement seq uence, AD management, and posture to reduce fall risk and minimize pain report Supine to sit stand by assist Sit to supine stand by assist Sit to stand stand by assist Stand to sit stand by assist Bed to reclining chair stand by assist Gait: Facilitated safe and correct performance of level surface ambulation covering a distance of 200 feet using front wheeled walker with supervision only with minimal verbal cueing provided for AD management, posture, and weight bearing through walker for increased ability. Step height and length asymmetric. Balance: Static Sitting: Normal Dynamic Sitting: Normal Static Standing: Fair Dynamic Standing: Fair Special Tests: Mobility Limitations Standardized Measure [facility] AM-PAC 6 clicks Basic Mobility Inpatient Short Form: Raw Score: 23 CMS Score: 11% deficit 4-Stage Balance Test: Feet together 10 seconds Semi tandem <10 seconds Full tandem <10 seocnds One-legged stance unable to test due to safety reasons Informed Consent/Education: Patient was instructed in purpose of PT consult and plan of care. Agreeable to proceed with established PT POC to achieve personal goals. Assessment: Patient demonstrating functional mobility decline and increased risk for falls requiring the use of a front wheeled walker to increase independence and reduce fall risk. Patient presents with clinical signs and symptoms consistent with current/admitting diagnoses that have resulted to mobility limitations, gait instability, generalized weakness, and overall ADL decline as demonstrated by the following impairment level findings: 1. Decreased strength to B UE/LE major muscle groups with R more affected than L 2. Impaired sitting/standing balance 3. Impaired activity tolerance 4. Limitation of joint range of motion in R UE/LE joints 5. Shortness of breath Impairments are contributing to the following functional limitations: 1. Decline in bed mobility skills 2. Decline in transfer skills 3. Difficulty with ambulation without assistive device and physical assistance 4. Increased completion time for mobility ADL performance 5. Increased risk for falls 6. Difficulty with managing steps alone safely Patient is assessed as a 43458 moderate complexity based on the following: History: 74 -year-old male with past medical history as indicated above Examination: Demonstrable impairment in strength, balance, and mobility level with underlying impairments and functional limitations as exhibited above as well as deficit score of 11% utilizing the [facility] Mobility Inpatient Short Form Presentation: Evolving Decision Makin moderate complexity Goals: Goals X1 week 1. Supine-Sit independent 2. Sit-Supine independent 3. Sit-Stand independent 4. Stand-Sit independent with no AD 5. Bed-Chair independent with no AD 6. Chair-Bed independent with no AD 7. Independent gait on level surface with use of FWW for at least 300 feet without report of pain nor dyspnea 8. Independent stair negotiation while holding onto B rails for at least 3 steps without report of pain nor dyspnea 9. Independent with home exercise program 10. Good static and dynamic standing balance/tolerance Plan of Care/Treatment Plan: 1-2x/day, 7 days/week x 1 week. Plan of care has been reviewed with the [employer]ODDING [employer]DE WORKER providing the service under Physical Therapy direction. Initiate Physical Therapy intervention for pain management as needed, strengthening, bed mobility, transfers, gait, stairs, balance training, and use of assistive device. DISCHARGE RECOMMENDATIONS: [] Home with no services [] [X] Patient will benefit from home health PT services in order to progress mobility level using least restrictive assistive ambulatory device, assess home safety, identify additional equipment needs, and establish a functional maintenance program that will increase ability of patient to remain at home. Home with services. [] Home with outpatient PT [] [] SNF for continued rehabilitation [] [] Jail Care [] [] SNF versus LTC based on ability to participate and progress [] TREATMENT CODE/TIME: 35840 x 27 minutes for 1 unit (14: 23?14: 15). Thank you for the opportunity to participate in the care of this patient. Juhi Flores PT, DPT, CLT [facility] [place], [place]
--- NOTE | 2024-10-27 14:50 | CHAPLAIN ---
Evens was sitting up in the chair when I visited. His partner, Pam, was with him. They were both pleasant and easily engaged in conversation. I explained my role and offered support.
[2024-10-27] MEDS: Ondansetron 4 MG/2 ML VIAL IVP ×2 (15:00→19:21)
[2024-10-27] MEDS: Ibuprofen 600 MG TAB PO ×2 (15:28→21:14)
[2024-10-27 16:23] LABS: Magnesium 2.2 mg/dL (1.8-2.4)
[2024-10-27 17:24] LABS: COVID-19 PCR Negative (Negative); Influenza A PCR Negative (Negative); Influenza B PCR Negative (Negative); RSV PCR Negative (Negative)
[2024-10-27 17:42] LABS: Source NASOPHARYNX
--- NOTE | 2024-10-27 20:11 | TELEP.MEDR_ITS ---
Date of service: 10/27/24 Time of Service: 20:11 Telepharmacy Home Med Rec Allergies Allergies: No Known Allergies Allergy (Unverified 10/26/24 07:40) Interview Person Interviewed: * Family member Pam Quality Quality of Interview/Accuracy of Medication List: Good Sources Sources used to compile medication list: [employer] Medication List and Patient List Changes made to Home Medication List: ADDITIONS: * Flonase 1 spray each nostril daily prn * Albuterol inhale 2 puffs q4hprn DELETIONS: * Amlodipine * Symbicort * Combivent * Colace * Lovastatin * Mag citrate * Fish oil * Protonix * Miralax CHANGES: * None Additional Notes Additional Notes: * Updated medication list with information from patients family Pam. She had medication bottles at home to review during med rec. She was unsure when last doses were taken by patient. Recommended Changes Recommended Changes(reason for recommendation): * None Attestation: The home medication list is now updated to the best of my knowledge and is ready to be reconciled by the provider. Please contact the TelePharmacy Medication Reconciliation Pharmacist at for any questions.
--- NOTE | 2024-10-27 20:11 | TELEP.MEDREC ---
Date of service: 10/27/24 Time of Service: 20:11 Telepharmacy Home Med Rec Allergies Allergies: No Known Allergies Allergy (Unverified 10/26/24 07:40) Interview Person Interviewed: Family member Pam Quality Quality of Interview/Accuracy of Medication List: Good Sources Sources used to compile medication list: [employer] Medication List and Patient List Changes made to Home Medication List: ADDITIONS: Flonase 1 spray each nostril daily prn Albuterol inhale 2 puffs q4hprn DELETIONS: Amlodipine Symbicort Combivent Colace Lovastatin Mag citrate Fish oil Protonix Miralax CHANGES: None Additional Notes Additional Notes: Updated medication list with information from patients family Pam. She had medication bottles at home to review during med rec. She was unsure when last doses were taken by patient. Recommended Changes Recommended Changes(reason for recommendation): None Attestation: The home medication list is now updated to the best of my knowledge and is ready to be reconciled by the provider. Please contact the TelePharmacy Medication Reconciliation Pharmacist at for any questions.
[2024-10-27 20:28] LABS: MRSA PCR Negative (Negative)
[2024-10-28] VITALS (11 sets, daily range): BP systolic 130–184; BP diastolic 74–108; PULSE 92–104; RESP 15–22; TEMP 35.6–37.3; O2SAT 92–97
--- NOTE | 2024-10-28 | DI.CT_ITS ---
Exam(s) CT CHEST PE CTA EXAM: CT CHEST PE CTA CLINICAL HISTORY: chest pain. TECHNIQUE: Imaging Protocol: Axial CT angiography was performed with multi-slice acquisition and mu lti-planar and/or 3D reconstructions. Lung Computer Aided Detection (CAD) was utilized. CONTRAST MATERIAL: Intravenous: Omnipaque 350 contrast volume:80 mL COMPARISON: CT CT ABDOMEN PELVIS W from 10/02/2023 FINDINGS: The examination is limited due to patient motion artifact. Tracheobronchial tree: Patent where visualized. No bronchiectasis. Pulmonary parenchyma: Moderate centrilobular emphysematous changes are present. There is a interstit ial infiltrates seen in the right lower lobe. It appears slightly more prominent compared to the exa mination from 10/02/2023. May in part be chronic but are superimposed interstitial infiltrate or ronny a cannot be excluded. No other focal consolidating infiltrates are seen. Pulmonary Arteries: Within the limits of the examination, no pulmonary emboli are seen. Mediastinum and Ryanne: There is mild thickening of the distal esophagus which may be due to underdiste ntion. Inflammatory infectious esophagitis cannot be excluded. Please correlate clinically. No sig nificant mediastinal or hilar adenopathy is present. Visualized thyroid gland: Unremarkable. Pleura: No effusion or pneumothorax. Heart: The heart is not dilated. Three vessel coronary artery calcification is present. There is lenny cification of the mitral annulus. No pericardial effusion. Aorta: Thoracic aorta non-dilated. No evidence of dissection. Carotid calcification is present. Upper abdomen: No acute abnormality. Soft tissues: Unremarkable. Bones: Within normal limits for the patient's age. IMPRESSION: 1. Examination limited by patient motion artifact. 2. Within the limits of the examination, no pulmonary embolism, thoracic aortic dissection or aneurys m is present. 3. Interstitial infiltrate in the right lower lobe. There is some underlying chronic interstitial di sease present, but superimposed edema or infiltrate cannot be excluded. Please correlate clinically. RADIATION DOSE DELIVERED: 123.57mGy.cm Total DLP DATA REPOSITORY: All CT scans at this facility are submitted to the National Radiology Data Registry (NRDR) Dose Index Registry (DIR) with the [employer] (ACR). RADIATION OPTIMIZATION: All CT scans at this facility use at least one of these dose optimization te chniques: automated exposure control; mA and/or kV adjustment per patient size (includes targeted exa ms where dose is matched to clinical indication); or iterative reconstruction.
--- NOTE | 2024-10-28 | RT.EKG_ITS ---
APPROVED REPORT Exam: Resting ECG Reason for Exam: chest pain/burning sensation Patient Location: I HR:100 bpm ECG Measurements Heart Rate 100 AXIS TX 188 P 70 QRSd 96 QRS 61 QT 366 T 58 QTc 473 Conclusion Sinus tachycardia...rate> 99 Right atrial enlargement...P>0.25mV 2 lds or<-0.24mV aVR/aVL
[2024-10-28] MEDS: nitroGLYcerin 0.4 MG TAB SL ×2 (00:22→00:36)
--- NOTE | 2024-10-28 00:25 | NUR.NOTE ---
Nursing Note: AIRPORT ATTENDANT alerted web content writer to patient experiancing chest pain/discomfort. web content writer went in and assessed pt. pt noted to be sitting up on the side of the bed stating burning and chest pain 05/10, provider greg stanford notified, orders obtained for stat EKG and SL Nitro 0.4 mg. VS obtained. AP RN
--- NOTE | 2024-10-28 00:37 | NUR.NOTE ---
Nursing Note: order given to give second dose of Nitro SL 0.4 mg 5 minutes after 1st dose if not relieved
[2024-10-28] MEDS: Mylanta Suspension 30 ML CUP PO (00:54)
[2024-10-28] MEDS: Pantoprazole 40 MG VIAL IVP (01:16)
[2024-10-28] MEDS: ceFAZolin 2 GM/50 ML BAG IVPB ×2 (01:16→10:52)
[2024-10-28] MEDS: MORPHine 2 MG/ML SYR IVP ×2 (01:23→08:20)
--- NOTE | 2024-10-28 01:24 | W.PM.PROGNOT ---
Date of Service Date of service: 10/28/24 Time of Service: :24 Subjective Subjective Interval history since last seen: Chest pain Exam Narrative Exam Narrative: Assessment and plan (1) Chest pain: Status: Acute Assessment and plan: Sudden onset of chest pain/abdominal burning. It seems GI related and that he has had nausea and vomiting throughout the day. He has been getting ibuprofen on an empty stomach. There may be a component of esophagitis/gastritis. Will DC ibuprofen. A trial of Mylanta seem to have made a slight difference. Will give a dose of IV Protonix and start Protonix 40 mg twice daily. Trend troponins. Placed on telemetry. Rule out RI although it does not seem to be cardiac in nature. (2) Hypertension: Status: Chronic Assessment and plan: Blood pressure has been elevated since admission. His home meds were not verified until this evening. His losartan is ordered for tomorrow. Blood pressure has improved with 2 sublingual nitro. He is also going to get some morphine which may lower his blood pressure. Resume outpatient meds in the a.m. Subjective Subjective Interval history since last seen: Patient reports 7 out of 10 chest pain. Nursing checked blood pressure around midnight, 198/100. Soon thereafter he sat up on the side of the bed and was complaining of sharp substernal chest pain as well as abdominal burning. He received 2 sublingual nitro with improvement in his blood pressure. His chest pain went to a 6 out of 10 and was primarily a burning sensation in his abdomen. Exam Narrative Exam Narrative: Patient is lying on the right lateral decubitus position. He is very hard of hearing. He points to his abdomen as the main source of his discomfort. He did not have labored breathing. The abdominal exam showed a markedly protuberant abdomen that was mildly tender to palpation. No HSM was detected. No guarding or rebound. Pulse is regular and at 100. Objective Last Vital Signs Temp 36.3 C L 10/28/24 00:34 Pulse 101 H 10/28/24 00:47 Resp 18 10/28/24 00:47 BP 156/95 H 10/28/24 00:47 Pulse Ox 93 10/28/24 00:47 Laboratory Results - last 24 hr 10/27/24 10/27/24 10/27/24 06:10 16:35 18:15 WBC 14.14 H RBC 5.35 Hgb 15.7 Hct 46.5 MCV 87 MCH 29.3 MCHC 33.8 RDW 13.4 Plt Count 214 MPV 9.6 Immature Gran % 0.6 Neutrophils % 83.7 Lymphocytes % 8.3 Monocytes % 6.5 Eosinophils % 0.6 Basophils % 0.3 Nucleated RBC % 0.0 Absolute Neutrophils 11.84 H Absolute Lymphocytes 1.17 L Absolute Monocytes 0.92 H Absolute Eosinophils 0.08 Absolute Basophils 0.04 Sodium 139 Potassium 3.7 Chloride 104 Carbon Dioxide 24.2 Anion Gap 10.8 BUN 16 Creatinine 1.0 Est GFR (CKD-EPI 2020) 78.49 Glucose 120 H Calcium 8.7 Magnesium 2.2 COVID-19 Source NASOPHARYNX SARS-CoV-2 (PCR) Negative Influenza Type A (PCR) Negative Influenza Type B (PCR) Negative RSV (PCR) Negative MRSA (TEM-PCR) Negative Time Spent with Patient Time Spent with Patient: 25-34 minutes Time was spent: preparing to see the patient(eg.review tests), obtaining and/or reviewing separately otained hiistory, ordering medications,tests, procedures, indepentently interpreting results and counseling the patient
--- NOTE | 2024-10-28 01:53 | NUR.NOTE ---
Nursing Note:RN reassessed pts pain, pt states pain is pretty well gone after recieving PRN morphine.
[2024-10-28 02:10] LABS: Troponin I 16 ng/L (<or=76)
[2024-10-28 07:02] LABS: ESR 41 mm/hr (0-20)
[2024-10-28 07:03] LABS: Absolute Basophil Count 0.04 10^3/uL (0.0-0.2); Absolute Lymphocyte Count 1.05 10^3/uL (1.2-3.4); Absolute Monocyte Count 0.94 10^3/uL (0.1-0.8); Absolute Neutrophil Count 10.57 10^3/uL (1.2-6.7); Basophils % 0.3 %; Eosinophils % 0.5 %; HCT 49.2 % (40.0-50.0); HGB 16.4 g/dL (13.5-17.5); Immature Grans % 0.8 %; Lymphocytes % 8.2 %; MCH 29.4 pg (27.0-33.0); MCHC 33.3 % (32.0-36.0); MCV 88 fL (80-95); MPV 9.8 fL (8.0-11.0); Monocytes % 7.4 %; Neutrophils % 82.8 %; Platelet Count 221 10^3/uL (130-400); RBC 5.57 10^6/uL (4.36-5.78); RDW 13.1 % (11.8-14.1); RDW-SD 42.7 fL; WBC 12.77 10^3/uL (4.4-10.8)
[2024-10-28 07:08] LABS: Absolute Eosinophil Count 0.06 10^3/uL (0.0-0.7)
[2024-10-28 07:15] LABS: BUN 16 mg/dL (7-18); CREATININE 0.9 mg/dL (0.70-1.30); Calcium 8.8 mg/dL (8.5-10.1); Chloride 102 mmol/L (98-107); Estimated GFR 89.07 (mL/min/1.73m2); Glucose 110 mg/dL (74-106); Magnesium 2.3 mg/dL (1.8-2.4); Potassium 4.2 mmol/L (3.5-5.1); Sodium 138 mmol/L (136-145)
[2024-10-28 07:24] LABS: Troponin I 17 ng/L (<or=76)
[2024-10-28] MEDS: Normal Saline - Diluent 50 ML VIAL IJ (08:09)
[2024-10-28] MEDS: Omnipaque 350 MG/ML 100 ML BTL 80 ML IJ (08:11)
[2024-10-28] MEDS: Ondansetron 4 MG/2 ML VIAL IVP (08:20)
[2024-10-28] MEDS: Aspirin E.C. 81 MG TABEC PO (08:21)
[2024-10-28] MEDS: Losartan 25 MG TAB 50 MG PO (08:21)
[2024-10-28] MEDS: Ezetimibe 10 MG TAB PO (08:21)
[2024-10-28] MEDS: Acetaminophen 325 MG TAB 650 MG PO ×3 (08:21→15:50)
[2024-10-28] MEDS: amLODIPine 5 MG TAB PO (08:21)
[2024-10-28] MEDS: Pantoprazole 40 MG TABCR PO (08:22)
[2024-10-28] MEDS: Normal Saline Flush 10 ML SYR IVP (08:29)
[2024-10-28] MEDS: Docusate Sodium 100 MG CAP PO (08:30)
[2024-10-28] MEDS: Budesonide/Formoterol 80/4.5 6.9 GM 60 PUFF INH IH (09:06)
--- NOTE | 2024-10-28 09:20 | PGE_ITS ---
Date of Service Date of service: 10/28/24 Time of Service: 09:21 Assessment and Plan Assessment and plan (1) Cellulitis: Status: Acute Assessment and plan: Ongoing cefazolin IV initiated in the ED WBC remains around 14 Will complete MRSA PCR-expecting most likely negative result as the patient does not remember having had any multi resistant pathogen in the past and blood cultures showing no growth at [address] completed on 10/26 there was no abscess, no drainable fluid collection, no hematoma CRP in a.m. CBC in the morning (2) COPD (chronic obstructive pulmonary disease): Status: Chronic Assessment and plan: No exacerbation of the condition at this time Ongoing home meds (3) Fall: Status: Acute Assessment and plan: Ongoing fall precautions PT consult completed with recommendation for home health PT at discharge (4) Constipation: Status: Acute Assessment and plan: The patient was on routine bowel management but had 2 liquid to soft stools yesterday-not confirmed by RN Hx of severe constipation in the past with N/V Continue bowel management meds at reduced frequency (5) Hypertension: Status: Chronic Assessment and plan: Will continue blood pressure meds Consider adjusting as the patient received an extra dose of Norvasc due to blood pressure of >180/110 with headache, vomiting. The patient was not certain of home meds?also [facility] feeling [facility] multiple locations?[facility] [place] ordered Continue close monitoring and adjust if needed (6) Chest pain: Status: Acute Assessment and plan: Overnight with BP 198/100 troponing negative X2 Repeat troponin at 6 hours No additional O2 requirement CTA to r/o PE -Cephalization and CLD markings (7) History of stroke: Status: Chronic Assessment and plan: with reported right sided residual deficit. No acute exacerbation And as above PT/OT. (8) Discharge planning issues: Status: Acute Assessment and plan: PT consult for discharge planning with recommendation for home health PT Followed by care management Discussed with Dr. Ling Exam Narrative Exam Narrative: Constitutional The patient is in bed comfortable but anxious re; eating d/t earlier vomiting episode;cooperative The patient is without acute distress HENMT: Facial structures with normal appearance Eyes: Well aligned Neuro:alert and oriented X4 . No neurological focal deficit Resp:Unlabored breathing, clear lung bilaterally Cardio: regular rhythm, S1, S2, no murmur, capillary refill<3 sec., bilateral radial and dorsalis pedis pulses are palpable GI: Abdomen is not distended, soft and non tender, bowel sounds are present : Negative Costovertebral angle tenderness Back/spine/Pelvis: No back tenderness Integumentary: left gluteal area with blanching erythema- skin break down in central area is scabbing over Extremities: strength 5/5 to bilateral lower and upper extremities Psych: RASS 0, congruent to anxious mood and normal affect. Objective Last Vital Signs Temp 36.5 C 10/28/24 08:30 Pulse 98 H 10/28/24 08:30 Resp 22 10/28/24 08:30 BP 181/108 H 10/28/24 08:30 Pulse Ox 92 10/28/24 09:12 Laboratory Results - last 24 hr 10/27/24 10/27/24 10/27/24 06:10 16:35 18:15 WBC RBC Hgb Hct MCV MCH MCHC RDW Plt Count MPV Immature Gran % Neutrophils % Lymphocytes % Monocytes % Eosinophils % Basophils % Nucleated RBC % Absolute Neutrophils Absolute Lymphocytes Absolute Monocytes Absolute Eosinophils Absolute Basophils ESR Sodium Potassium Chloride Carbon Dioxide Anion Gap BUN Creatinine Est GFR (CKD-EPI 2020) Glucose Calcium Magnesium 2.2 Troponin I C-Reactive Protein COVID-19 Source NASOPHARYNX SARS-CoV-2 (PCR) Negative Influenza Type A (PCR) Negative Influenza Type B (PCR) Negative RSV (PCR) Negative MRSA (TEM-PCR) Negative 10/28/24 10/28/24 01:45 05:45 WBC 12.77 H RBC 5.57 Hgb 16.4 Hct 49.2 MCV 88 MCH 29.4 MCHC 33.3 RDW 13.1 Plt Count 221 MPV 9.8 Immature Gran % 0.8 Neutrophils % 82.8 Lymphocytes % 8.2 Monocytes % 7.4 Eosinophils % 0.5 Basophils % 0.3 Nucleated RBC % 0.0 Absolute Neutrophils 10.57 H Absolute Lymphocytes 1.05 L Absolute Monocytes 0.94 H Absolute Eosinophils 0.06 Absolute Basophils 0.04 ESR 41 H Sodium 138 Potassium 4.2 Chloride 102 Carbon Dioxide 27.0 Anion Gap 9.0 BUN 16 Creatinine 0.9 Est GFR (CKD-EPI 2020) 89.07 Glucose 110 H Calcium 8.8 Magnesium 2.3 Troponin I 16 17 C-Reactive Protein 14.20 H COVID-19 Source SARS-CoV-2 (PCR) Influenza Type A (PCR) Influenza Type B (PCR) RSV (PCR) MRSA (TEM-PCR)
[2024-10-28] MEDS: Enoxaparin 40 MG/0.4 ML SYR SC (10:55)
--- NOTE | 2024-10-28 11:05 | DI.VRAD_ITS ---
PROCEDURE INFORMATION: Exam: CTA Chest With Contrast Exam date and time: 10/28/2024 8:30 AM Age: 74 years old Clinical indication: Other: Chest pain TECHNIQUE: Imaging protocol: Computed tomographic angiography of the chest with contrast. Exam focused on the arteries. 3D rendering (Not supervised by radiologist): MIP and/or 3D reconstructed images were created by the technologist. Contrast material: 350; Contrast volume: 80 ml; Contrast route: INTRAVENOUS (IV); COMPARISON: CT ABDOMEN PELVIS CTA 12/26/2021 6:57 AM FINDINGS: Pulmonary arteries: Normal. No pulmonary emboli. Aorta: Intraluminal thrombus present in the thoracic aorta. No aneurysm. Lungs: Emphysematous lung disease. Left upper lobe lobulated 10 mm lung nodule. Right lower lobe perifissural 4 mm nodule. Right lower lobes linear atelectasis. Right lower lobe interstitial fibrosis. Right middle lobe subpleural 4 mm lung nodule. Left lower lobe 3 mm lung nodule. Pleural spaces: Unremarkable. No pneumothorax. No pleural effusion. Heart: Mitral valve annulus calcifications. No cardiomegaly. Coronary arteries: Calcified coronary artery disease. Lymph nodes: Unremarkable. No enlarged lymph nodes. Diaphragm: Small hiatal hernia. Bones/joints: Unremarkable. No acute fracture. Soft tissues: Unremarkable. IMPRESSION: 1. Emphysematous lung disease with micro nodules.For patients at low risk (minimal or absent history of smoking and of other known risk factors), recommend CT Chest at 3-6 months, then consider CT Chest at 18-24 months. For patients at high risk (history of smoking or of other known risk factors), recommend CT Chest at 3-6 months, then CT Chest at 18-24 months. (Reference: Tyree) 2. Calcified coronary artery disease. REFERENCES: Tyree Contreras, et al. Guidelines for Management of Incidental Pulmonary Nodules Detected on CT Images: From the Fleischner Society 2017. Radiology. 2017;284(1):228-243. Dictated and Authenticated by: Bimal Cedeno MD. Ordering:KATY Bradley MD
--- NOTE | 2024-10-28 11:30 | PT.INNT ---
PT Notes Visit Reasons: Cellulitis pt refused PT today stating that he had a rough night and is just going to sleep today. Will check in with him in am.
[2024-10-28 11:54] LABS: Troponin I 16 ng/L (<or=76)
[2024-10-28] MEDS: Nicotine 21 MG/24 HR PATCH TD (11:59)
[2024-10-28] MEDS: Sucralfate 1 GM TAB PO ×2 (13:37→15:50)
--- NOTE | 2024-10-28 14:20 | DSE_ITS ---
Date of service: 10/29/24 Time of Service: 14:20 DS: Diagnosis Discharge Diagnosis (1) Cellulitis: Status: Acute (2) COPD (chronic obstructive pulmonary disease): Status: Chronic (3) Fall: (4) Constipation: (5) Hypertension: Status: Chronic (6) Chest pain: Status: Resolved (7) History of stroke: Status: Chronic Discharge Plan Disposition Patient Disposition: Home W/Home Health Services Condition: Improving Discharge Details Reason For Visit: Cellulitis Admit Date/Time: 10/26/24 10:38 Admit Provider: Kirk Ling Attending Provider: Kirk Ling Primary Care Provider: Unknown,Unknown Hospital Course Hospital Course: This is a 74-year-old male patient past medical history significant for hypertension, dyslipidemia duodenal ulcer, COPD, around 88 pack-year smoking, CVA with residual right-sided weakness presented to the emergency department on 10/26/24 for increasing pain and swelling to left buttock after mechanical fall on 10/23/24 when he fell back and struck his left buttocks on the corner of a bathroom counter. The patient reported difficult to safely ambulate, denied fever, chills. Workup in the emergency department included a CAT scan which showed no evidence of abscess or fluid collection. He was started on cefazolin and admission request to hospitalist services placed. Notable labs included a white count of 14 but no significant left shift, normal kidney function and electrolytes. No other complaints or abnormal lab findings noted. During the stay, the patient continue to receive IV cephazolin with improvement of cellulitis and trending down WBC. The patient later developed headache, nausea and vomiting in the setting of BP > 180/110 which improved with an additional amlodipine dose. At the time the patient was on Norvasc as per home med list but was unable to verify meds even with the [facility] med rec consultation. The patient's significant other clarified home medicines and losartan was added to regimen as per [facility] change by [facility]. Overnight, the patient developed chest pain with negative EKG findings and negative serial troponins. Morphine,nitro SL,Maalox, protonix were given with imrpovement. Nicotine patch palced in the ED 48 hours ago was replaced. On examination the patient has epigastric tenderness this morning and sucralfate was given. CTA chest completed with the following results: -Within the limits of the examination, no pulmonary embolism, thoracic aortic dissection or aneurysm is present.Thoracic aorta Intraluminal thrombus and calcified coronary artery disease noted. - Interstitial infiltrate in the right lower lobe VS RLL linear atelectasis. . There is some underlying --Chronic interstitial disease superimposed edema or infiltrate cannot be excluded. -Lungs: Emphysematous lung disease. Left upper lobe lobulated 10 mm lung nodule. -Right lower lobe perifissural 4 mm nodule. -Right lower lobe interstitial fibrosis. Right middle lobe subpleural 4 mm lung nodule. -Left lower lobe 3 mm lung nodule. Recommendation are for patients at high risk (history of smoking or of other known risk factors), recommend CT Chest at 3-6 months, then CT Chest at 18-24 months. (Reference: Tyree) [facility] vascular surgery consultation completed with Dr Nieves with recommendation for at least a baby aspirin daily and high intensity statin if the patient can tolerate. No recommendation for surgery made at this time. The patient is on Zetia and reportedly had an intolerance to Lipitor in the past. [facility] provider to follow-up on above mentioned findings. The patient will be discharged home with home health physical therapy and nursing on oral cephalexin 500 mg 4 times a day to complete the treatment for the left buttock cellulitis. Short course of probiotic was added. Amlodipine, Protonix, sucralfate were added to discharge meds. The patient is to avoid any NSAIDs and can take as needed acetaminophen for pain. Further medicine management to be done as per [facility] patient's PCP. The patient needs to schedule a follow-up appointment with his PCP within 7 days of discharge. Discussed with Dr. Ling Home Meds and New Rx's Prescriptions: New acetaminophen 325 mg Tablet 650 mg PO QID PRNQty: 60 0RF amlodipine 5 mg Tablet 5 mg PO HS Qty: 30 0RF sucralfate 100 mg/mL suspension 10 ml PO QACHS Qty: 400 0RF Rx Instructions: Do not take within 2-3 hours from antibiotics pantoprazole [Protonix] 40 mg tablet,delayed release (DR/EC) 40 mg PO BID Qty: 60 0RF cephalexin 500 mg capsule 500 mg PO QID Qty: 28 0RF Rx Instructions: Take 3 hours apart from PPI, antacids, probiotics Bio-K plus 50 billion cell capsule,delayed release(DR/EC) 1 cap PO DAILY Qty: 7 0RF Rx Instructions: Take 3 hours apart from antibiotics Continued aspirin 81 mg Tablet 81 mg PO DAILY losartan 50 mg tablet 50 mg PO DAILY fluticasone propion-salmeterol [Wixela Inhub] 250-50 mcg/dose blister with device 1 inh inhalation BID Rx Instructions: patient uses this or Spiriva at home which ever is on hand Spiriva Respimat 2.5 mcg/actuation mist 2 inh inhalation DAILY Rx Instructions: patient uses this or Advair which ever is on hand ezetimibe 10 mg tablet 10 mg PO DAILY fluticasone propionate [24 Hour Allergy Relief] 50 mcg/actuation spray,suspension 1 spray intranasal DAILY PRN Rx Instructions: administer into each nostril albuterol sulfate 90 mcg/actuation HFA aerosol inhaler 2 inh inhalation Q4H PRN Discontinued acetaminophen 500 mg Tablet 500 mg PO Q4H PRN Patient Comments: Pt takes 2000mg po bid at home per family member Discharge Instructions Stand Alone Forms: Nursing Discharge Form Referrals: Unknown,Unknown [Primary Care Provider] - (Please call the [facility] to make a hospital follow up in 10-14 days) Activity:: Activity as Tolerated Equipment/Supplies:: Walker Diet:: As Tolerated Discharge Orders Discharge Orders: Discharge Order (Routine); Ordered 10/28/24 Ordered By: Vianey Keane Discharge Data Discharge Date/Time-TO BE ENTERED AT DEPARTURE: 10/28/24 16:11 DS: Summary Time Spent with Patient providing and/or coordinating discharge services: Greater than 30 minutes Status at Discharge Functional status at discharge: uses cane/walker Overall status at discharge: patient is progressing back to baseline Mental Status: mental status grossly normal Speech and Movement: speech and movement normal Mood: congruent mood Affect: normal affect Quality:SDOH Health Related Social Needs: No Data to Display Exam Psych Mental Status: mental status grossly normal Speech and Movement: speech and movement normal Mood: congruent mood Affect: normal affect DS: Data Vitals/I&O Vitals and I&O: Vital Signs Temperature 36.9 C 10/28/24 10:46 Temperature Source Temporal Artery Scan 10/28/24 10:46 Pulse 100 H 10/28/24 10:46 Pulse Rhythm Regular 10/26/24 11:55 Pulse 96 H 10/26/24 08:31 Respiratory Rate 22 10/28/24 10:46 Respiratory Effort Normal 10/26/24 11:55 Respiratory Depth Normal 10/26/24 11:55 Respiratory Pattern Normal 10/26/24 11:55 Blood Pressure 137/89 10/28/24 10:46 Blood Pressure Mean 93 10/26/24 11:16 Blood Pressure Position Supine 10/26/24 09:37 Pulse Oximetry 93 10/28/24 10:46 Oxygen Delivery Method Room Air 10/28/24 10:46 Oxygen Flow Rate 0 10/28/24 10:46 Pain Level 5 10/28/24 10:46 Comment RN notified of vitals 10/28/24 07:41 Intake & Output 10/27/24 10/28/24 10/28/24 23:59 11:59 23:59 Intake Total 100 / 170 60 / 110 50 / 110 Balance 100 / 170 60 / 110 50 / 110 Intake: IV 100 / 170 60 / 110 50 / 110 Oral 0 / 0 Other: Urine Color Pale Urine Appearance Clear Urine Odor None Comment pt had unmeasured void into toilet Data Completed and Pending Labs on day of discharge: Labs from last 24 hours 10/28/24 10/28/24 10/28/24 11:20 05:45 01:45 WBC 12.77 H RBC 5.57 Hgb 16.4 Hct 49.2 MCV 88 MCH 29.4 MCHC 33.3 RDW 13.1 Plt Count 221 MPV 9.8 Immature Gran % 0.8 Neutrophils % 82.8 Lymphocytes % 8.2 Monocytes % 7.4 Eosinophils % 0.5 Basophils % 0.3 Nucleated RBC % 0.0 Absolute Neutrophils 10.57 H Absolute Lymphocytes 1.05 L Absolute Monocytes 0.94 H Absolute Eosinophils 0.06 Absolute Basophils 0.04 ESR 41 H Sodium 138 Potassium 4.2 Chloride 102 Carbon Dioxide 27.0 Anion Gap 9.0 BUN 16 Creatinine 0.9 Est GFR (CKD-EPI 2020) 89.07 Glucose 110 H Calcium 8.8 Magnesium 2.3 Troponin I 16 17 16 C-Reactive Protein 14.20 H COVID-19 Source SARS-CoV-2 (PCR) Influenza Type A (PCR) Influenza Type B (PCR) RSV (PCR) MRSA (TEM-PCR) 10/27/24 10/27/24 10/27/24 18:15 16:35 06:10 WBC RBC Hgb Hct MCV MCH MCHC RDW Plt Count MPV Immature Gran % Neutrophils % Lymphocytes % Monocytes % Eosinophils % Basophils % Nucleated RBC % Absolute Neutrophils Absolute Lymphocytes Absolute Monocytes Absolute Eosinophils Absolute Basophils ESR Sodium Potassium Chloride Carbon Dioxide Anion Gap BUN Creatinine Est GFR (CKD-EPI 2020) Glucose Calcium Magnesium 2.2 Troponin I C-Reactive Protein COVID-19 Source NASOPHARYNX SARS-CoV-2 (PCR) Negative Influenza Type A (PCR) Negative Influenza Type B (PCR) Negative RSV (PCR) Negative MRSA (TEM-PCR) Negative Preliminary micro results at discharge 10/26/24 09:07 Blood Culture - Preliminary Blood NO GROWTH 48 HOURS 10/26/24 08:00 Blood Culture - Preliminary Blood NO GROWTH 48 HOURS PFSH All Active Problems (Updated 10/29/24 @ 00:05 by REILLY PINEDA) History of stroke (Chronic) Hypertension (Chronic) Cellulitis (Acute) Duodenal ulcer (Acute) Diverticulitis (Chronic) COPD (chronic obstructive pulmonary disease) (Chronic) Medical History Stroke Thrombus [facility] note: Possible thrombus Knee pain AAA (abdominal aortic aneurysm) without rupture COPD (chronic obstructive pulmonary disease) Ureterolithiasis Surgical History H/O cataract extraction Social History Smoking/Tobacco Use Status: Current every day Tobacco Type: cigarettes Years smoked: 50 Smoking risk assessment performed?: Yes Alcohol Intake: never Drug use: Never Substance use type: does not use Housing: house Do you feel safe at home: Yes Do you feel safe in your relationship?: Yes Time Spent with Patient Time Spent with Patient: 70-84 minutes4 Time was spent: preparing to see the patient(eg.review tests), obtaining and/or reviewing separately otained hiistory, ordering medications,tests, procedures, referring, communicating with other health urgent care physician, indepentently in terpreting results, counseling the patient and care coordination
--- NOTE | 2024-10-28 14:22 | PDOC.HHF2F_ITS ---
Home Health Referral Home Health Orders Clinical synopsis of why skilled professionals are needed: This is a 74-year-old male patient past medical history significant for hypertension, dyslipidemia duodenal ulcer, COPD, around 88 pack-year smoking, CVA with residual right-sided weakness presented to the emergency department on 10/26/24 for increasing pain and swelling to left buttock after mechanical fall on 10/23/24 when he fell back and struck his left buttocks on the corner of a bathroom counter. The patient reported difficult to safely ambulate, denied fever, chills. Workup in the emergency department included a CAT scan which showed no evidence of abscess or fluid collection. He was started on cefazolin and admission request to hospitalist services placed. Notable labs included a white count of 14 but no significant left shift, normal kidney function and electrolytes. No other complaints or abnormal lab findings noted. During the stay, the patient continue to receive IV cephazolin with improvement of cellulitis and trending down WBC. The patient later developed headache, nausea and vomiting in the setting of BP > 180/110 which improved with an additional amlodipine dose. At the time the patient was on Norvasc as per home med list but was unable to verify meds even with the [facility] med rec consultation. The patient's significant other clarified home medicines and losartan was added to regimen as per [facility]. Overnight, the patient developed chest pain with negative EKG findings and negative serial troponins. Morphine,nitro SL,Maalox, protonix were given with imrpovement. Nicotine patch palced in the ED 48 hours ago was replaced. On examination the patient has epigastric tenderness this morning and sucralfate was given. CTA chest completed with the following results: -Within the limits of the examination, no pulmonary embolism, thoracic aortic dissection or aneurysm is present.Thoracic aorta Intraluminal thrombus and calcified coronary artery disease noted. - Interstitial infiltrate in the right lower lobe VS RLL linear atelectasis. . There is some underlying --Chronic interstitial disease superimposed edema or infiltrate cannot be excluded. -Lungs: Emphysematous lung disease. Left upper lobe lobulated 10 mm lung nodule. Right lower lobe perifissural 4 mm nodule. -Right lower lobe interstitial fibrosis. Right middle lobe subpleural 4 mm lung nodule. -Left lower lobe 3 mm lung nodule. Recommendation are for patients at high risk (history of smoking or of other known risk factors), recommend CT Chest at 3-6 months, then CT Chest at 18-24 months. (Reference: Tyree) [facility] vascular surgery consultation completed with Dr Nieves with recommendation for at least a baby aspirin daily and high intensity statin if the patient can tolerate. No recommendation for surgery made at this time. The patient is on Zetia and reportedly had an intolerance to Lipitor in the past. [facility] to follow-up on above mentioned findings. The patient will be discharged home with home health physical therapy and nursing on oral cephalex in 500 mg 4 times a day to complete the treatment for the left buttock cellulitis. Short course of probiotic was added. Amlodipine, Protonix, sucralfate were added to discharge meds. The patient is to avoid any NSAIDs and can take as needed acetaminophen for pain. Further medicine management to be done as per [facility] patient's PCP. The patient needs to schedule a follow-up appointment with his PCP within 7 days of discharge. Discussed with Dr. Anuradha Nieves with recommendation for at least a baby aspirin daily and high intensity statin if the patient can tolerate. No recommendation for surgery made at this time. The patient is on Zetia and reportedly had an intolerance to Lipitor in the past. Medical diagnosis necessitation home health referral: Left buttock cellulitis, hypertensive urgency, history of duodenal with epigastric pain Registered Nurse: Check all that apply Instruct on new or changed medication(s)/assess compliance: Ordered Assess for exacerbation of medical condition, instruct patient/caregivers on signs and symptoms to report for early detection: Ordered Physical Therapist: Check all that apply Increase strength & endurance for safe mobility at home: Ordered To design/establish home maintenance program: Ordered Fall reduction therapy program for patient with history of frequent falls: Ordered Home safety evaluation and teaching/gait training including stair management (if applicable): Ordered Better Breathing Program: Ordered Home Bound Status Describe why leaving home would require a considerable and taxing effort: Requires frequent rest periods and Safety Concerns: describe (Cellulitis status post fall) Encounter Date and Reason: I certify that a FTF encounter for this patient was performed on October 28, 2024 and that such encounter was related to the primary reason the patient requires home health services. The encounter was conducted in the following manner: * By me as the certifying physician, BUTCHER, PA or * By an inpatient physician, BUTCHER or PA during an inpatient stay who communicated findings to me, Certification And Authentication I certify that I composed the above information based on my clinical judgment relating to this patient's medical condition and, if applicable, clinical findings communicated to me by the NPP or inpatient physician who performed the FTF encounter. Name of Provider that will be monitoring home health services: [facility]
--- NOTE | 2024-10-28 15:52 | CMDISCH_ITS ---
Date of service: 10/28/24 Time of Service: 15:52 LACE Index Scoring Tool Questions: Length of Stay (in days): 2 Was the patient admitted via the E.D.?: Yes Comorbidities: Cerebrovascular Disease and Chronic Pulmonary Disease E.D. Visits: 1 Answers: Total Score: 9 Risk of Readmission: Low Risk Care Management Discharge Plan Reason for Hospitalization: cellulitis Discharge Plan: [facility] will be discharged home with no new services. The provider ordered new home health nursing and PT, however at discharge Olivia declined services. He will f/u with his PCP at [facility], and continue per his plan of care. [facility] will transport home with Pam. Patient/Family Education Needs: Review discharge instructions, limitations, follow up plan and discuss Ask Me Three Services Needed at Discharge: Home Health Care Services (RN and PT ordered but he does not want PT) SDOH Health Related Social Needs: No Data to Display
== END 2024-10-28 16:11 | disposition home health service (06) ==
LOC: ER 11:42 → MS 11:48
PROVIDERS: Family Medicine; Nurse Practitioner Acute Care; Admitting Provider Family Medicine; Emergency Provider Emergency Medicine; Visit Provider Family Medicine
DX: L03.317 Cellulitis of buttock (principal); J44.9 Chronic obstructive pulmonary disease, unspecified; W19.XXXA Unspecified fall, initial encounter; I10 Essential (primary) hypertension; K59.00 Constipation, unspecified; R07.89 Other chest pain; E78.5 Hyperlipidemia, unspecified; I69.351 Hemiplegia and hemiparesis following cerebral infarction affecting right dominant side; I71.40 Abdominal aortic aneurysm, without rupture, unspecified; F17.210 Nicotine dependence, cigarettes, uncomplicated; R51.9 Headache, unspecified; R11.2 Nausea with vomiting, unspecified; R91.8 Other nonspecific abnormal finding of lung field; I74.11 Embolism and thrombosis of thoracic aorta
CPT/HCPCS: 00123; 36415; 71275; 80048; 80053; 82550; 84145; 85652; 87040; 87637; 87641; 93005; 94640; 96361; 96365; 96366; 96372; 96375; 96376; 97162; 99285; J1650; 72193; 83605; 83735; 84484; 85025; 86140; 93010; 94664; 99222; 99233; 99239; G0378; J0131; J0690; J1885; J2270; J2405; J2470; J3490